=== PATIENT | male | born 1950 | race Caucasian/White ===

== ENCOUNTER → 2017-03-06 | Outpatient (CLI) | payer OTHER, MEDICARE ==
--- NOTE | 2017-03-06 15:16 | RADIOLOGY REPORT (SQ) ---
EXAM DESCRIPTION: KUB COMPLETED DATE/TIME: 03/06/2017 3:04 pm REASON FOR STUDY: [facility] COMPL OF INTRAPERITONEAL DIALYSIS CATHETER, SEQUELA T85.691S [facility] COMPL OF I NTRAPERITONEAL DIALYSIS CATHETER, SE COMPARISON: None. NUMBER OF VIEWS: One view. TECHNIQUE: Supine radiographic image of the abdomen acquired. LIMITATIONS: None. FINDINGS: BOWEL GAS PATTERN: Normal bowel gas pattern. No dilated loops. CALCIFICATIONS: No suspicious calcifications. SOFT TISSUES: No gross mass or suggestion of organomegaly. HARDWARE: Peritoneal dialysis catheter with the distal end in the pelvic region. BONES: No acute fracture. No worrisome bone lesions. OTHER: No other significant finding. IMPRESSION: NO RADIOGRAPHIC EVIDENCE FOR ACUTE ABDOMINAL DISEASE. PERITONEAL DIALYSIS CATHETER PRES ENT. TECHNICAL DOCUMENTATION: JOB ID: [id number] [employer]- All Rights Reserved
== END ==
LOC: OD 14:39
PROVIDERS: ATTEND Internal Medicine Nephrology
DX: T85.691S Other mechanical complication of intraperitoneal dialysis catheter, sequela (principal)
CPT/HCPCS: 74000

== ENCOUNTER 2017-05-07 05:21 | Day surgery (SDC) | payer OTHER, MEDICARE ==
[2017-04-30 09:37] LABS: HEMATOCRIT 40.7 % (37.9-51.0); HEMOGLOBIN 13.9 g/dL (13.5-17.0); MEAN CORPUSCULAR HGB CONC 34.3 g/dL (32.0-36.0); MEAN CORPUSCULAR VOLUME 88 fl (80-97); PLATELET COUNT 247 10^3/uL (150-450); RED BLOOD COUNT 4.65 10^6/uL (4.35-5.55); WHITE BLOOD COUNT 8.1 10^3/uL (4.0-10.5)
[2017-04-30 10:00] LABS: ANION GAP 13 (5-19); BLOOD UREA NITROGEN 35 mg/dL (7-20); CALCIUM 10.3 mg/dL (8.4-10.2); CARBON DIOXIDE 25 mmol/L (22-30); CHLORIDE 104 mmol/L (98-107); GLUCOSE 136 mg/dL (75-110); SODIUM 141.8 mmol/L (137-145)
--- NOTE | 2017-04-30 11:59 | EKG REPORT ---
SEVERITY:- OTHERWISE NORMAL ECG - SINUS RHYTHM POSSIBLE LVH : Confirmed by: Dakota Stevens 30-Apr-2017 11:57:45
[~2017-05-07 05:21] MED LIST: CEFAZOLIN 1 GM/D5W RTU 1 GM/50 ML RTUPB IV PRN; LIDOCAINE 0.5% INJ-PF (5 MG/ML) 50 ML SDV SUBCUT PRN; NORMAL SALINE 1000 ML (RENAL PATIENTS) IV PRN
[2017-05-07] MEDS ORDERED: BACITRACIN INJ 50,000 UNIT VIAL ONE (06:34)
[2017-05-07] MEDS ORDERED: LIDOCAINE 0.5% INJ-PF (5 MG/ML) 50 ML SDV ONE (06:34)
[2017-05-07] MEDS ORDERED: BUPIVACAINE HCL 0.25 % INJ/PF (2.5 MG/1 ML) 30 ML VIAL ONE (06:34)
[2017-05-07 06:47] LABS: POTASSIUM 4.1 mmol/L (3.6-5.0)
[2017-05-07] MEDS ORDERED: FENTANYL CITRATE INJ/PF 100 MCG/2 ML AMPUL ONE ×2 (06:58→10:21)
[2017-05-07] MEDS ORDERED: MIDAZOLAM 2 MG/2 ML INJ ONE (06:59)
[2017-05-07] MEDS ORDERED: ONDANSETRON HCL INJ/PF 4 MG/2 ML SDV ONE (06:59)
[2017-05-07] MEDS ORDERED: PROPOFOL INJ 200 MG/20 ML VIAL IV ONE (06:59)
[2017-05-07] MEDS ORDERED: HEPARIN SOD (PORCINE) 1,000 UNIT/ML 1 ML VIAL ONE ×2 (07:22→09:17)
[2017-05-07] MEDS ORDERED: DIPHENHYDRAMINE HCL 50 MG/ML VIAL IV PRN (08:27)
[2017-05-07] MEDS ORDERED: FENTANYL CITRATE INJ/PF 100 MCG/2 ML AMPUL IV PRN ×3 (08:27)
[2017-05-07] MEDS ORDERED: MEPERIDINE HCL/PF INJ 25 MG/1 ML DISP.SYRIN IV PRN (08:27)
[2017-05-07] MEDS ORDERED: MORPHINE SULFATE 10 MG/ML INJ IV PRN (08:27)
[2017-05-07] MEDS ORDERED: PROMETHAZINE HCL INJ 25 MG/1 ML VIAL IV PRN (08:27)
[2017-05-07] MEDS ORDERED: SUCCINYLCHOLINE CHLORIDE INJ 200 MG/10 ML VIAL ONE (09:43)
--- NOTE | 2017-05-07 10:04 | PDOC DISCHARGE SUMMARY ---
Discharge Summary (SDC) - Discharge Final Diagnosis: #1 end-stage renal disease on hemodialysis. 2. Malfunctioning peritoneal dialysis catheter. 3. Diabetes mellitus type 2. 4. Hypertension. Date of Surgery: 05/07/17 Discharge Date: 05/07/17 Condition: Fair Treatment or Instructions: My discharge order Discharge home [after recovery per ASU criteria]. Diet , [renal], diabetic, as tolerated, when fully awake advance as tolerated. Activities within moderation encouraged. Follow up in my office by appointment in about [1 week]. Call for appointment. Leave wounds [covered], [keep clean and dry, until office visit in 1 week]. Hold of on school/work [until evaluation in office]. Meds per med rec. Percocet. May shower [in 48 hrs], [try to keep operated area as dry as possible]. Prescriptions: Oxycodone HCl/Acetaminophen [Percocet 5-325 mg Tablet] 1 tab PO ASDIR PRN #15 tab PRN Reason: Referrals: MAYANK MAURO MD [Primary Care Provider] - Discharge Diet: Other (Comments) - Renal, diabetic. Respiratory Treatments at Home: Deep Breathing/Coughing Discharge Activity: Activity As Tolerated Report the Following to Your Physician Immediately: Shortness of Breath, Unusual Bleeding
--- NOTE | 2017-05-07 10:12 | Operative Report ---
Operative Report DATE OF SURGERY: 05/07/17 PREOPERATIVE DIAGNOSIS: #1 end-stage renal disease on hemodialysis. 2. Malfunctioning peritoneal dialysis catheter. 3. Diabetes mellitus type 2. 4. Hypertension. POSTOPERATIVE DIAGNOSIS: #1 end-stage renal disease on hemodialysis. Post repositioning of peritoneal dialysis catheter. 2. Malfunctioning peritoneal dialysis catheter. 3. Diabetes mellitus type 2. 4. Hypertension. OPERATION: Laparoscopic exploration and evaluation of peritoneal dialysis catheter. 2. Suture repositioning of pertinent dialysis catheter. SURGEON: HEATHER LI SPORTS DOCTOR: None ANESTHESIA: GA TISSUE REMOVED OR ALTERED: Not applicable. COMPLICATIONS: None. ESTIMATED BLOOD LOSS: 5 mL. INTRAOPERATIVE FINDINGS: Of a perfectly sided peritoneal dialysis catheter on inspection. The catheter was resected slightly of the pelvis. The hope is that this will reduce pain on installation although it will make drainage somewhat more challenging. 1 L of heparinized solution was easily instilled into the peritoneal cavity. Unable to 50 mils came out. A second liter was now instilled and 750 easily removed. This is after repositioning and suturing of catheter. This suggests that function may be possible with higher volumes in this patient. This will be communicated to the dialysis nurses. The patient was also given copies of the intraoperative photographs so that communication is closed loop. PROCEDURE: After obtaining informed consent and going over the procedure with [the patient and his family], he was taken to the operating room, [he was] anesthetized and intubated. The abdomen was prepped and draped in the usual sterile fashion. After the universal timeout, in which it was verified that the patient received IV antibiotic, the procedure commenced. The abdomen was entered in an open fashion slightly lateral to the prior epigastric incision. Dissection proceeded through the subcutaneous tissues, fascia. The rectus muscle was gently allowing access to the posterior fascia peritoneum. These were opened between hemostats and a 5 mm cannula inserted. A 5 mm laparoscopic camera was now inserted and used to evaluate the abdomen. With the patient in Trendelenburg of very few of the catheter perfectly positioned in the pelvis was noted. A second 5 mm cannula was now inserted in the right midabdomen through a prior scar. Also noted is the umbilical hernia repair which is just perfect in appearance no adhesions. introduction of a grasper. The grasper was used to t ke the coil of the peritoneal dialysis catheter and to manipulate it is slightly of the pelvis and to right. It was firmly affixed in this position by inserting a 3-0 PDS suture using an Endo passer. This was passed around the catheter and tied. The suture was introduced with small 5 mm incision. The suture was now tied sufficiently so as not to compromise the lumen of the catheter. Prior to doing so the catheter was irrigated and also a .035 Glidewire passed through to ensure that there was no substantial obstruction within the catheter. Once this was done the external portion of the catheter was affixed to a Leur lock adapter and connected to a sterile IV tubing. This allowed introduction of 1 L of heparinized saline into the peritoneal cavity via the catheter. This occurred with brisk and free flow of fluid into the peritoneal cavity. Once the entire liter had been infused, the bag was now placed beneath the level of the patient and very satisfactory outflow was observed. About 300 mils of fluid easily came out afterwards it was sluggish. A second liter of heparinized saline saline was introduced this time the effluent was switched and very satisfying. Easily 750 mils were withdrawn. It is to be noted that with the initially perfect positioning of the calf reinserting a new catheter seems redundant and success is most likely to attend an entirely different positioning of the catheter. Hence the procedure. With this in place, the camera and the catheter were removed and abdomen desufflated. The subcutaneous tissue in each incision was closed with interrupted 3-0 PDS. The skin in each incision was closed using interrupted and continuous sutures of 4-0 Monocryl. The catheter was flushed with 10 mL of heparinized solution and capped. Benzoin was applied and Steri-Strips used to reinforce each of the wounds. . Dry gauze and tape applied and the procedure concluded.
[2017-05-07] MEDS ORDERED: OXYCODONE-ACETAMINOPHEN 5-325 MG TABLET ONE (11:07)
[2017-05-07] MEDS ORDERED: OXYCODONE-ACETAMINOPHEN 5-325 MG TABLET PO ONE (11:30)
[2017-05-07 13:36] VITALS: BP 196/93
== END 2017-05-07 11:55 | disposition home or self-care (01) ==
LOC: OROUT 05:21
PROVIDERS: ATTEND Surgery
PROC: 0WHG43Z Insertion of Infusion Device into Peritoneal Cavity, Percutaneous Endoscopic Approach (ICD-10-PCS; principal; 2017-05-07 07:30)
DX: T82.858A Stenosis of other vascular prosthetic devices, implants and grafts, initial encounter (principal); Y83.2 Surgical operation with anastomosis, bypass or graft as the cause of abnormal reaction of the patient, or of later complication, without mention of misadventure at the time of the procedure; I12.0 Hypertensive chronic kidney disease with stage 5 chronic kidney disease or end stage renal disease; N18.6 End stage renal disease; Z99.2 Dependence on renal dialysis; D63.1 Anemia in chronic kidney disease; E11.22 Type 2 diabetes mellitus with diabetic chronic kidney disease; Z87.891 Personal history of nicotine dependence; Z79.899 Other long term (current) drug therapy; Z79.4 Long term (current) use of insulin
CPT/HCPCS: 93005; 36415 ×2; 82947; 84132; 85027; 80048; 93010; 49324; C1769; J2250; J3490 ×2; J0690; J3010; J1644; J0330; J2405; J2704; J1642; 790

== ENCOUNTER 2017-10-13 12:16 | Day surgery (SDC) | payer OTHER, MEDICARE ==
[~2017-10-13 12:16] MED LIST changes: -LIDOCAINE 0.5% INJ-PF (5 MG/ML) 50 ML SDV SUBCUT PRN; -NORMAL SALINE 1000 ML (RENAL PATIENTS) IV PRN
[2017-10-13] MEDS ORDERED: LIDOCAINE 0.5% INJ-PF (5 MG/ML) 50 ML SDV ONE (12:50)
[2017-10-13] MEDS ORDERED: BUPIVACAINE HCL 0.25 % INJ/PF (2.5 MG/1 ML) 30 ML VIAL ONE (12:50)
[2017-10-13 12:54] LABS: HEMATOCRIT 42.7 % (37.9-51.0); HEMOGLOBIN 14.6 g/dL (13.5-17.0); MEAN CORPUSCULAR HEMOGLOBIN 30.6 pg (27.0-33.4); MEAN CORPUSCULAR HGB CONC 34.1 g/dL (32.0-36.0); MEAN CORPUSCULAR VOLUME 90 fl (80-97); PLATELET COUNT 300 10^3/uL (150-450); RED BLOOD COUNT 4.76 10^6/uL (4.35-5.55); RED CELL DISTRIBUTION WIDTH 13.5 % (11.5-14.0); WHITE BLOOD COUNT 9.9 10^3/uL (4.0-10.5)
[2017-10-13 13:22] LABS: ANION GAP 17 (5-19); BLOOD UREA NITROGEN 38 mg/dL (7-20); CALCIUM 9.7 mg/dL (8.4-10.2); CARBON DIOXIDE 25 mmol/L (22-30); CHLORIDE 105 mmol/L (98-107); GLUCOSE 94 mg/dL (75-110); POTASSIUM 4.7 mmol/L (3.6-5.0); SODIUM 146.5 mmol/L (137-145)
[2017-10-13] MEDS ORDERED: FENTANYL CITRATE INJ/PF 100 MCG/2 ML AMPUL ONE (14:15)
[2017-10-13] MEDS ORDERED: PROPOFOL INJ 200 MG/20 ML VIAL IV ONE (14:15)
[2017-10-13] MEDS ORDERED: MIDAZOLAM 2 MG/2 ML INJ ONE (14:15)
[2017-10-13] MEDS ORDERED: LIDOCAINE 2% INJ-PF (20 MG/ML) 10 ML AMPUL ONE (14:21)
[2017-10-13] MEDS ORDERED: FENTANYL CITRATE INJ/PF 100 MCG/2 ML AMPUL IV PRN ×3 (14:46)
[2017-10-13] MEDS ORDERED: PROMETHAZINE HCL INJ 25 MG/1 ML VIAL IV PRN ×2 (14:46)
[2017-10-13] MEDS ORDERED: MORPHINE SULFATE 10 MG/ML INJ IV PRN (14:46)
[2017-10-13] MEDS ORDERED: MEPERIDINE HCL/PF INJ 25 MG/1 ML DISP.SYRIN IV PRN (14:46)
[2017-10-13] MEDS ORDERED: OXYCODONE-ACETAMINOPHEN 5-325 MG TABLET PO PRN ×2 (14:46)
[2017-10-13] MEDS ORDERED: DIPHENHYDRAMINE HCL 50 MG/ML VIAL IV PRN (14:46)
--- NOTE | 2017-10-13 15:11 | Discharge Summary ---
Discharge Summary (SDC) - Discharge Final Diagnosis: #[address] 2. End-stage renal disease on dialysis. Date of Surgery: 10/13/17 Discharge Date: 10/13/17 Condition: Good Treatment or Instructions: Discharge home [after recovery per ASU criteria]. Diet , [renal],as tolerated, when fully awake advance as tolerated. Activities within moderation encouraged. Follow up in my office by appointment in about [1 week]. Call for appointment. Leave wounds [covered], [keep clean and dry, until office visit in 1 week]. Hold of on school/work [until evaluation in office]. Meds per med rec. Percocet. May shower [in 48 hrs], [try to keep operated area as dry as possible]. Prescriptions: Oxycodone HCl/Acetaminophen [Percocet 5-325 mg Tablet] 1 tab PO ASDIR PRN #15 tab PRN Reason: Referrals: SEVERIANO JEFF MD [Primary Care Provider] - Discharge Diet: Other (Comments) - Renal. Respiratory Treatments at Home: Deep Breathing/Coughing Discharge Activity: Activity As Tolerated Report the Following to Your Physician Immediately: Shortness of Breath, Unusual Bleeding
--- NOTE | 2017-10-13 15:15 | Operative Report ---
Operative Report DATE OF SURGERY: 10/13/17 PREOPERATIVE DIAGNOSIS: #[address]. 2. End- stage renal disease on dialysis. POSTOPERATIVE DIAGNOSIS: #[address] 2. End- stage renal disease on dialysis. OPERATION: Removal of peritoneal dialysis catheter. SURGEON: HEATHER LI SUPERVISORY TRAINING SPECIALIST: None. ANESTHESIA: LMAC TISSUE REMOVED OR ALTERED: Peritoneal dialysis catheter. COMPLICATIONS: None. ESTIMATED BLOOD LOSS: 5 mL. INTRAOPERATIVE FINDINGS: Of a well founded, double cuffed peritoneal dialysis catheter. Removed in entirety and discarded. PROCEDURE: After obtaining informed consent and going over the procedure with [the patient , he was taken to the operating room, appropriate anesthesia is. The abdomen was prepped and draped in the usual sterile fashion. After the universal timeout , in which it was verified that the patient received IV antibiotic, the procedure commenced. The topographical location for the peritoneal dialysis catheter was sketched by applying it to the anterior abdominal wall. Local anesthesia was infiltrated at the exit site, subcutaneous tissue tissue around the catheter and also in the scar of the previous insertion. The scar of the previous insertion was now incised. Hemostat dissection was used to dissect down to the external cough. Surrounding tissues were incised using cautery. The catheter was divided and the external portion removed. Dissection now proceeded down to the internal cough. The catheter on the anterior side of the cuff was visualized and grasped with a hemostat. The internal portion of the catheter was no entirely removed by traction. The remaining adhesions of the cuff were now taken down and the catheter removed in entirety and discarded. The wounds were checked for hemostasis. Wounds were closed using interrupted 3-0 PDS. [Dry gauze and tape applied and the procedure concluded.
[2017-10-13 17:18] VITALS: BP 161/80
== END 2017-10-13 16:50 | disposition home or self-care (01) ==
LOC: OROUT 12:16
PROVIDERS: ATTEND Surgery
PROC: 0WPG33Z Removal of Infusion Device from Peritoneal Cavity, Percutaneous Approach (ICD-10-PCS; principal; 2017-10-13 14:30)
DX: Z49.01 Encounter for fitting and adjustment of extracorporeal dialysis catheter (principal); N18.6 End stage renal disease; I12.0 Hypertensive chronic kidney disease with stage 5 chronic kidney disease or end stage renal disease; E11.22 Type 2 diabetes mellitus with diabetic chronic kidney disease; Z87.891 Personal history of nicotine dependence; Z99.2 Dependence on renal dialysis; Z79.4 Long term (current) use of insulin
CPT/HCPCS: 36415; 85027; 80048; 49422; J2250; J0690; J3010; J3490 ×2; J2704; 840

== ENCOUNTER 2018-12-03 10:41 | Emergency (ER) | payer OTHER, MEDICARE ==
--- NOTE | 2018-12-03 12:11 | ER Document Report ---
ED General - General Chief Complaint: Irregular Pulse Stated Complaint: WEAKNESS Time Seen by Provider: 12/03/18 11:42 Primary Care Provider: GAVIOTA GARCIA [Primary Care Provider] - Follow up as needed Notes: 68-year-old male with hypertension, insulin-dependent diabetes mellitus, end- stage renal disease on dialysis Thursday presents to the emergency department brought in by ambulance for concern for irregular pulse and lethargy. Patient states he was at dialysis and the dialysis nurse noticed that he became diaphoretic and that he had fallen asleep a couple times during his treatment, she put his apple watch on his wrist and deemed that he had an irregular heartbeat so transferred him to our emergency department. Patient is awake and alert in no distress, denies any diaphoresis, denies any current nausea, denies any acute shortness of breath or dyspnea on exertion, denies chest pain. TRAVEL OUTSIDE OF THE [place] IN LAST 30 DAYS: No - Related Data Allergies/Adverse Reactions: Tcxpqfl-Puc-Aeq Reductase Inhibitor Adverse Reaction (Verified 05/07/17 06:16) Past Medical History - Social History Smoking Status: Never Smoker Family History: Reviewed & Not Pertinent Patient has suicidal ideation: No Patient has homicidal ideation: No - Past Medical History Cardiac Medical History: Reports: Hx Hypercholesterolemia, Hx Hypertension Denies: Hx Coronary Artery Disease, Hx Heart Attack Pulmonary Medical History: Reports: Hx Bronchitis, Hx Pneumonia Denies: Hx Asthma, Hx COPD Neurological Medical History: Denies: Hx Cerebrovascular Accident, Hx Seizures Endocrine Medical History: Reports: Hx Diabetes Mellitus Type 2 Musculoskeletal Medical History: Reports Hx Arthritis - MARY. HANDS Past Surgical History: Reports: Hx Orthopedic Surgery - left knee replacement, back x2, knee x2 - Immunizations Hx Diphtheria, Pertussis, Tetanus Vaccination: Yes Review of Systems - Review of Systems Constitutional: See HPI EENT: No symptoms reported Cardiovascular: See HPI Respiratory: See HPI Gastrointestinal: See HPI Genitourinary: No symptoms reported Male Genitourinary: No symptoms reported Musculoskeletal: No symptoms reported Skin: No symptoms reported Hematologic/Lymphatic: No symptoms reported Neurological/Psychological: See HPI Physical Exam - Vital signs Vitals: Pulse Ox 98 12/03/18 10:53 - Notes Notes: PHYSICAL EXAMINATION: Reviewed vital signs and charting by RN GENERAL: Alert, interacts well. No acute distress. HEAD: Normocephalic, atraumatic. EYES: Pupils equal and round. Extraocular movements intact. ENT: Oral mucosa moist, tongue midline. NECK: Full range of motion. Trachea midline. LUNGS: Clear to auscultation bilaterally, no wheezes, rales, or rhonchi. No respiratory distress. HEART: Regular rate and rhythm. No murmur ABDOMEN: soft, non-tender. No distention. Bowel sounds present EXTREMITIES: Moves all 4 extremities spontaneously. No edema, No cyanosis. PSYCH: Normal affect, normal mood. SKIN: Warm, dry, normal turgor. No rashes or lesions noted. Course - Re-evaluation Re-evalutation: 12/03/18 12:10 Overall well-appearing, plan to get some basic blood work, EKG, troponin, and will reassess. 12/03/18 13:50 Multiple attempts were made to obtain blood. I asked the charge nurse that she was unable to obtain a blood sample under ultrasound-guided procedure. Patient says he feels completely fine at his baseline. An EKG was obtained which did not show any evidence of a STEMI or any anterior lead ST depressions concerning for ischemia. Rate was 63 and regular, normal axis, QTC 455. I explained to patient that because he does have risk factors I was concerned and wanted to get a troponin but we are unsuccessful at getting blood and patient states he wishes to leave. At this time I explained patient's the risks involved and I do feel that it is appropriate for him to leave considering the back story and why he was brought over here from dialysis to begin with. At this time patient is stable for discharge and understands the risks and strict return precautions have been given. - Vital Signs Vital signs: Temp Pulse Resp BP Pulse Ox 97.6 F 15 161/135 H 98 12/03/18 11:01 12/03/18 11:01 12/03/18 11:01 12/03/18 11:01 Discharge - Discharge Clinical Impression: Diaphoresis Condition: Good Disposition: HOME, SELF-CARE Additional Instructions: You were seen in the emergency department this morning for concern for fatigue and for sweating. I apologize that we were not able to get blood work on you and I do have a mild concern and was hoping to get some blood work. Your EKG was reassuring and did not show any evidence of an acute heart attack. It is critically important to return to the emergency department if you do develop chest pain, nausea, sweats with the symptoms, or you have any concerning symptoms. You do have risk factors. I apologize for the delay and again for the inability to get the blood work that we were hoping to get. Please do not hesitate to return to the emergency department for any reason that concerns you. Referrals: [facility] [Primary Care Provider] - Follow up as needed
--- NOTE | 2018-12-03 13:50 | EKG REPORT ---
SEVERITY:- ABNORMAL ECG - SINUS RHYTHM MULTIPLE ATRIAL PREMATURE COMPLEXES PROBABLE LEFT ATRIAL ABNORMALITY INCOMPLETE RIGHT BUNDLE BRANCH BLOCK LEFT VENTRICULAR HYPERTROPHY : Confirmed by: Porter Mulligan MD 03-Dec-2018 13:50:01
[2018-12-03 14:07] VITALS: BP 189/88
== END 2018-12-03 14:16 | disposition home or self-care (01) ==
LOC: ER 10:41
DX: R61 Generalized hyperhidrosis (principal); R53.1 Weakness; E78.00 Pure hypercholesterolemia, unspecified; E11.22 Type 2 diabetes mellitus with diabetic chronic kidney disease; I12.0 Hypertensive chronic kidney disease with stage 5 chronic kidney disease or end stage renal disease; N18.6 End stage renal disease; Z99.2 Dependence on renal dialysis; Z79.4 Long term (current) use of insulin
CPT/HCPCS: 93005; 93010; 99285

== ENCOUNTER → 2019-06-07 | Outpatient (CLI) | payer OTHER ==
--- NOTE | 2019-06-07 14:50 | RADIOLOGY REPORT (SQ) ---
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 TECHNIQUE: Dynamic and static huertas-scale images acquired of the thyroid gland. Selected additional c olor/power Doppler images recorded. All images stored to PACS. LIMITATIONS: None. FINDINGS: RIGHT LOBE: 6.2 x 2.4 x 2.9 cm. Generally heterogeneous echo pattern. - Dominant solid well-circumscribed wider than tall hypoechoic mass in the inferior-midpole measures 3.5 x 2.3 x 2.7 cm. Coarse internal macro calcifications. - smaller adjacent midpole spongiform ovoid ill circumscribed nodule measures up to 1.6 cm. LEFT LOBE: 5.4 x 1.8 x 1.9 cm. Generally heterogeneous echo pattern. - small cystic nodules without suspicious features. ISTHMUS: Normal size. Homogeneous echotexture. No cystic or solid masses. OTHER: No other significant finding. IMPRESSION: 1. Dominant right lobe thyroid lesion. This is a solid mass and is considered TiRads 4, moderately s uspicious. Patient reports history of previous right thyroid lobe biopsy and correlation should be m tahir with previous results. Otherwise, FNA of this lesion would be appropriate. TECHNICAL DOCUMENTATION: JOB ID: [id number] 2010 [employer]- All Rights Reserved Reading location - IP/workstation name: [email or web address]
== END ==
LOC: RAD 13:36
PROVIDERS: ATTEND Physician Assistant
DX: E04.9 Nontoxic goiter, unspecified (principal)
CPT/HCPCS: 76536

== ENCOUNTER 2019-06-10 12:03 | Inpatient (IN) | payer OTHER, MEDICARE ==
--- NOTE | 2019-06-10 12:38 | ER Document Report ---
ED Medical Screen (RME) - General Chief Complaint: Breathing Difficulty Stated Complaint: DIFFICULTY BREATHING Time Seen by Provider: 06/10/19 12:35 Primary Care Provider: BRYANNA GARCIA PA [Primary Care Provider] - Follow up as needed Mode of Arrival: Wheelchair Information source: Patient Notes: 68-year-old male presents to ED for shortness of breath O2 sat 84-89 until he was placed on 2 L of oxygen nasal cannula, now is going up to 97%. He is in the emergency room at this time for shortness of breath difficulty breathing. He does have a history of COPD. States he did former smoker but has not smoked since he was 34 years old. And is 68 now. He is alert and oriented and we will be moving him to a room. I have greeted and performed a rapid initial assessment of this patient. A comprehensive ED assessment and evaluation of the patient, analysis of test results and completion of medical decision making process will be conducted by an additional ED providers. TRAVEL OUTSIDE OF THE [place] IN LAST 30 DAYS: No - Related Data Allergies/Adverse Reactions: Bqysstx-Edq-Kzn Reductase Inhibitor Adverse Reaction (Verified 05/07/17 06:16) Past Medical History - Past Medical History Cardiac Medical History: Reports: Hx Hypercholesterolemia, Hx Hypertension Pulmonary Medical History: Reports: Hx Bronchitis, Hx Pneumonia Endocrine Medical History: Reports: Hx Diabetes Mellitus Type 2 Musculoskeltal Medical History: Reports Hx Arthritis - MARY. HANDS, Reports Hx Musculoskeletal Deformity, Reports Hx Musculoskeletal Trauma Past Surgical History: Reports: Hx Orthopedic Surgery - left knee replacement, back x2, knee x2 - Immunizations Hx Diphtheria, Pertussis, Tetanus Vaccination: Yes Physical Exam - Vital signs Vitals: Temp Pulse Resp BP Pulse Ox 98.5 F 78 20 134/83 H 92 06/10/19 12:28 06/10/19 12:28 06/10/19 12:28 06/10/19 12:28 06/10/19 12:28 Course - Vital Signs Vital signs: Temp Pulse Resp BP Pulse Ox 98.5 F 78 20 134/83 H 92 06/10/19 12:28 06/10/19 12:28 06/10/19 12:28 06/10/19 12:28 06/10/19 12:28 Doctor's Discharge - Discharge Referrals: BRYANNA GARCIA PA [Primary Care Provider] - Follow up as needed
[2019-06-10] MEDS ORDERED: IPRATROPIUM/ALBUTEROL 0.5-2.5 MG/3 ML AMPUL NEB ONE ×2 (12:46→12:47)
[2019-06-10] MEDS ORDERED: METHYLPREDNISOLONE INJ 125 MG/2 ML SDV IV ONE (12:47)
--- NOTE | 2019-06-10 12:49 | ER Document Report ---
Doctor's Note Notes: 06/10/19 12:48 Patient also has a history of kidney failure and does have a dialysis fistula on the left arm
--- NOTE | 2019-06-10 13:21 | RADIOLOGY REPORT (SQ) ---
EXAM DESCRIPTION: CHEST SINGLE VIEW COMPLETED DATE/TIME: 06/10/2019 12:03 pm REASON FOR STUDY: short Of breath COMPARISON: 04/02/2012 EXAM PARAMETERS: NUMBER OF VIEWS: One view. TECHNIQUE: Single frontal radiographic view of the chest acquired. RADIATION DOSE: NA LIMITATIONS: None. FINDINGS: LUNGS AND PLEURA: Patchy bibasilar opacities may represent small effusions with atelectasi s and/or consolidation. No pneumothorax. MEDIASTINUM AND HILAR STRUCTURES: No masses. Contour normal. HEART AND VASCULAR STRUCTURES: Heart normal in size. Normal vasculature. BONES: No acute findings. HARDWARE: None in the chest. OTHER: No other significant finding. IMPRESSION: Patchy bibasilar opacities may represent atelectasis with small effusions or consolidati on. TECHNICAL DOCUMENTATION: JOB ID: [id number] 2010 [employer]- All Rights Reserved Reading location - IP/workstation name: [email or web address]
[2019-06-10 13:57] LABS: ABSOLUTE BASOPHILS # (AUTO) 0.1 10^3/uL (0.0-0.2); ABSOLUTE LYMPHOCYTES (AUTO) 0.5 10^3/uL (0.5-4.7); ABSOLUTE MONOCYTES (AUTO) 0.9 10^3/uL (0.1-1.4); ABSOLUTE NEUT (AUTO) 4.1 10^3/uL (1.7-8.2); BASOPHILS % (AUTO) 1.3 % (0-2); EOSINOPHILS % (AUTO) 0.4 % (0-6); HEMATOCRIT 25.1 % (37.9-51.0); HEMOGLOBIN 8.9 g/dL (13.5-17.0); LYMPHOCYTES % (AUTO) 8.5 % (13-45); MEAN CORPUSCULAR HEMOGLOBIN 32.3 pg (27.0-33.4); MEAN CORPUSCULAR HGB CONC 35.4 g/dL (32.0-36.0); MEAN CORPUSCULAR VOLUME 91 fl (80-97); PLATELET COUNT 205 10^3/uL (150-450); RED BLOOD COUNT 2.76 10^6/uL (4.35-5.55); RED CELL DISTRIBUTION WIDTH 14.2 % (11.5-14.0); SEGMENTED NEUTROPHILS % (AUTO) 73.8 % (42-78); TOTAL CELLS COUNTED % (AUTO) 100 %; WHITE BLOOD COUNT 5.5 10^3/uL (4.0-10.5)
[2019-06-10 14:17] LABS: ALKALINE PHOSPHATASE 49 U/L (38-126); ANION GAP 11 (5-19); ASPARTATE AMINO TRANSFERASE 26 U/L (17-59); BILIRUBIN,DIRECT 0.4 mg/dL (0.0-0.4); BILIRUBIN,TOTAL 1.2 mg/dL (0.2-1.3); BLOOD UREA NITROGEN 19 mg/dL (7-20); CALCIUM 9.5 mg/dL (8.4-10.2); CARBON DIOXIDE 29 mmol/L (22-30); CHLORIDE 101 mmol/L (98-107); GLUCOSE 144 mg/dL (75-110); POTASSIUM 4.1 mmol/L (3.6-5.0); TOTAL PROTEIN 7.4 g/dL (6.3-8.2)
--- NOTE | 2019-06-10 16:20 | RADIOLOGY REPORT (SQ) ---
EXAM DESCRIPTION: CT CHEST WITHOUT COMPLETED DATE/TIME: 06/10/2019 3:37 pm REASON FOR STUDY: shortness of breath/consolidation COMPARISON: Radiographs from yesterday. TECHNIQUE: CT scan performed of the chest without intravenous contrast. Images reviewed with lung, soft tissue and bone windows. Reconstructed coronal and sagittal MPR images reviewed. All images st ored on PACS. All CT scanners at this facility use dose modulation, iterative reconstruction, and/or weight based d osing when appropriate to reduce radiation dose to as low as reasonably achievable (ALARA). [facility]: Dose Right [facility]: CareDose [facility]: Dose Right [facility]: Teradose 4D [facility]: Smart Myows RADIATION DOSE: CT Rad equipment meets quality standard of care and radiation dose reduction techniq ues were employed. CTDIvol: 18.9 mGy. DLP: 665 mGy-cm. mGy. LIMITATIONS: No technical limitations. FINDINGS: LUNGS AND PLEURA: Mild motion artifact and areas of subsegmental atelectasis. Small bilat eral effusions. HILAR AND MEDIASTINAL STRUCTURES: Mild mediastinal adenopathy, nodes measuring up to 1.4 cm short axi s. HEART AND VASCULAR STRUCTURES: Mild cardiomegaly. Heavy coronary calcification. No pericardial effu rosa or aortic aneurysm. UPPER ABDOMEN: No significant findings. Limited exam. THYROID AND OTHER SOFT TISSUES: Suspect thyromegaly. No chest wall mass or axillary adenopathy. BONES: No significant finding. HARDWARE: None in the chest. OTHER: No other significant findings. IMPRESSION: 1. Findings likely related to CHF. Cardiomegaly and small effusions. Marked Coronary calcification also noted. 2. Other findings as above. TECHNICAL DOCUMENTATION: JOB ID: [id number] Quality ID # [id number]: Final reports with documentation of one or more dose reduction techniques (e.g., Au tomated exposure control, adjustment of the mA and/or kV according to patient size, use of iterative reconstruction technique) 2010 [employer]- All Rights Reserved Reading location - IP/workstation name: [email or web address]
--- NOTE | 2019-06-10 16:36 | ER Document Report ---
Entered by LYNNE THOMAS SCRIBE 06/10/19 1521 Acting as scribe for:EVARISTO CATALAN MD ED General - General Chief Complaint: Breathing Difficulty Stated Complaint: DIFFICULTY BREATHING Time Seen by Provider: 06/10/19 12:35 Primary Care Provider: BRYANNA GARCIA PA [NO LOCAL MD] - Follow up as needed Mode of Arrival: Wheelchair Information source: Patient Notes: This 68-year-old male patient presents to the emergency department today with complaints of shortness of breath for the last 3 weeks. Patient states that he is a M/W/F hemodialysis patient and he has "never missed a day of dialysis in his life". Patient states he went today prior to arrival as well and he had a full treatment done. Patient states he has had associated fevers, chills, sweats, and wheezing for the last few weeks but has not been seen for it yet. Patient denies a history of CHF or usage of home oxygen. Patient denies any sore throat, chest pain, or recent weight gain. TRAVEL OUTSIDE OF THE [place] IN LAST 30 DAYS: No - Related Data Allergies/Adverse Reactions: Wlelryp-Adm-Aut Reductase Inhibitor Adverse Reaction (Verified 05/07/17 06:16) Past Medical History - General Information source: Patient - Social History Smoking Status: Former Smoker - quit at age 32 Cigarette use (# per day): No Frequency of alcohol use: None Drug Abuse: None Lives with: Family Family History: Reviewed & Not Pertinent Patient has suicidal ideation: No Patient has homicidal ideation: No - Past Medical History Cardiac Medical History: Reports: Hx Hypercholesterolemia, Hx Hypertension Pulmonary Medical History: Reports: Hx Bronchitis, Hx Pneumonia Endocrine Medical History: Reports: Hx Diabetes Mellitus Type 2 Musculoskeletal Medical History: Reports Hx Arthritis - MARY. HANDS, Reports Hx Musculoskeletal Deformity, Reports Hx Musculoskeletal Trauma Past Surgical History: Reports: Hx Orthopedic Surgery - left knee replacement, back x2, knee x2 - Immunizations Hx Diphtheria, Pertussis, Tetanus Vaccination: Yes Review of Systems - Review of Systems Constitutional: See HPI, Chills, Diaphoresis, Fever EENT: denies: Throat pain Cardiovascular: denies: Chest pain Respiratory: See HPI, Short of breath, Wheezing Gastrointestinal: No symptoms reported Genitourinary: No symptoms reported Male Genitourinary: No symptoms reported Musculoskeletal: No symptoms reported Skin: No symptoms reported Hematologic/Lymphatic: No symptoms reported Neurological/Psychological: No symptoms reported -: Yes All other systems reviewed and negative Physical Exam - Vital signs Vitals: Temp Pulse Resp BP Pulse Ox 98.5 F 78 20 134/83 H 92 06/10/19 12:28 06/10/19 12:28 06/10/19 12:28 06/10/19 12:28 06/10/19 12:28 - Notes Notes: Physical Exam: General: Alert, appears short of breath. HEENT: Normocephalic. Atraumatic. PERRL. Extraocular movements intact. Oropharynx clear. Neck: Supple. Non-tender. Respiratory: Performed after breathing treatment. No respiratory distress. Clear and equal breath sounds bilaterally. Cardiovascular: Regular rate and rhythm. Abdominal: Obese. Non-tender. No distension. Normal Bowel Sounds. Back: No gross abnormalities. Extremities: Moves all four extremities. Upper extremities: Fistula in LUE Lower extremities: 1+ pitting edema bilaterally. Neurological: Normal cognition. AAOx4. Normal speech. Psychological: Normal affect. Normal Mood. Skin: Warm. Dry. Normal color. Course - Vital Signs Vital signs: Temp Pulse Resp BP Pulse Ox 98.5 F 78 18 143/63 H 92 06/10/19 12:28 06/10/19 12:28 06/10/19 13:00 06/10/19 12:50 06/10/19 12:28 - Laboratory Result Diagrams: 06/10/19 13:45 06/10/19 13:45 Laboratory results interpreted by me: 06/10/19 06/10/19 13:45 13:45 RBC 2.76 L Hgb 8.9 L Hct 25.1 L RDW 14.2 H Lymph % (Auto) 8.5 L Polk % (Auto) 16.0 H Creatinine 4.70 H Est GFR ( Amer) 15 L Est GFR (MDRD) Non-Af 12 L Glucose 144 H Discharge - Discharge Clinical Impression: CHF (congestive heart failure), Chronic renal failure, New onset atrial flutter, End stage renal disease Condition: Fair Disposition: AGAINST MEDICAL ADVICE Referrals: BRYANNA GARCIA PA [NO LOCAL MD] - Follow up as needed I personally performed the services described in the documentation, reviewed and edited the documentation which was dictated to the scribe in my presence, and it accurately records my words and actions.
[2019-06-10 17:15] LABS: APPEARANCE,URINE CLEAR; BILIRUBIN,URINE NEGATIVE (NEGATIVE); COLOR,URINE YELLOW; GLUCOSE, URINE >=500 mg/dL (NEGATIVE); KETONES,URINE NEGATIVE (NEGATIVE); PROTEIN,URINE >=500 mg/dL (NEGATIVE); UROBILINOGEN,URINE NEGATIVE mg/dL (<2.0)
--- NOTE | 2019-06-10 18:06 | EKG REPORT ---
SEVERITY:- ABNORMAL ECG - A-FLUTTER W/ PREDOM 4:1 AV BLOCK, A-RATE 319 NONSPECIFIC T ABNORMALITIES, LATERAL LEADS BORDERLINE PROLONGED QT INTERVAL : Confirmed by: Porter Mulligan MD 10-Jun-2019 18:05:26
[2019-06-10] MEDS ORDERED: ACETAMINOPHEN 325 MG TABLET PO PRN (18:24)
[2019-06-10] MEDS ORDERED: ZOLPIDEM TARTRATE 5 MG TABLET PO PRN (18:24)
[2019-06-10] MEDS ORDERED: OXYCODONE-ACETAMINOPHEN 5-325 MG TABLET PO PRN (18:24)
[2019-06-10] MEDS ORDERED: ONDANSETRON 4 MG TAB.RAPDIS PO PRN (18:24)
[2019-06-10] MEDS ORDERED: IPRATROPIUM/ALBUTEROL 0.5-2.5 MG/3 ML AMPUL NEB PRN (18:24)
--- NOTE | 2019-06-10 18:44 | PDOC H&P ---
History of Present Illness Admission Date/PCP: 06/10/19 18:13 History of Present Illness: LEELEE THORNE is a 68 year old male Patient presents emergency room with complaint of difficulty breathing and shortness of breath. This has been going on for the last 3 weeks. He is a dialysis patient and his last dialysis was today. Patient states is normally pretty compliant. He was found to be in new onset atrial fibrillation in the emergency room. He has been in the hospital multiple times before and is. His EKG did not show evidence of atrial arrhythmias. The scan of the chest reveal cardiomegaly and small effusions. There was noted a suspected megaly although thyroid function test is noted to be normal. Patient was also found to have an elevated troponin at 0.162 and 0.164 however this is likely due to his dialysis and arrhythmia. He denies any chest pain. The troponin is flat but will continue to trend. The same level is within normal. EKG shows atrial flutter with predominant 4-1 AV block rate there is no evidence of clinical pneumonia this is likely due to atrial arrhythmia with tachycardia, as well as renal function. Past Medical History Cardiac Medical History: Reports: Hyperlipidema, Hypertension Pulmonary Medical History: Reports: Bronchitis, Pneumonia Endocrine Medical History: Reports: Diabetes Mellitus Type 2 Musculoskeltal Medical History: Reports: Arthritis - MARY. HANDS Hematology: Denies: Anemia Past Surgical History Past Surgical History: Reports: Orthopedic Surgery - left knee replacement, back x2, knee x2 Social History Information Source: Patient Lives with: Family Smoking Status: Former Smoker - quit at age 32 Frequency of Alcohol Use: None Hx Recreational Drug Use: No - Advance Directive Resuscitation Status: Full Code Family History Family History: Reviewed & Not Pertinent Parental Family History Reviewed: No Children Family History Reviewed: Yes Sibling(s) Family History Reviewed.: Yes Medication/Allergy Home Medications: Carvedilol [Coreg 12.5 mg Tablet] 1 tab PO BID 01/27/17 Clonidine HCl 1 tab PO BID 01/27/17 Furosemide [Lasix 20 mg Tablet] 1 tab PO DAILY 01/27/17 Insulin Glargine,Hum.rec.anlog [Lantus] 1 dose SQ HSP PRN 01/27/17 Nifedipine [Adalat cc] 1 tab PO BID 01/27/17 Oxycodone HCl/Acetaminophen [Percocet 5-325 mg Tablet] 1 tab PO ASDIR PRN #15 tab 05/07/17 Oxycodone HCl/Acetaminophen [Percocet 5-325 mg Tablet] 1 tab PO ASDIR PRN #15 tab 10/13/17 Allergies/Adverse Reactions: Fzlggbo-Fdr-Ajp Reductase Inhibitor Adverse Reaction (Verified 05/07/17 06:16) Review of Systems All systems: reviewed and no additional remarkable complaints except as stated Cardiovascular: PRESENT: edema, orthropnea, palpitations. ABSENT: chest pain Respiratory: ABSENT: cough, dyspnea, hemoptysis Physical Exam Vital Signs: Temp Pulse Resp BP Pulse Ox 98.5 F 78 21 H 143/73 H 94 06/10/19 12:28 06/10/19 12:28 06/10/19 16:03 06/10/19 16:03 06/10/19 16:03 Intake & Output 06/09/19 06/10/19 06/11/19 06:59 06:59 06:59 Weight 90.9 kg General appearance: PRESENT: no acute distress, well-developed, well-nourished Head exam: PRESENT: atraumatic, normocephalic Eye exam: PRESENT: conjunctiva pink, EOMI, PERRLA. ABSENT: scleral icterus Ear exam: PRESENT: normal external ear exam Mouth exam: PRESENT: moist, tongue midline Neck exam: ABSENT: carotid bruit, JVD, lymphadenopathy, thyromegaly Respiratory exam: PRESENT: clear to auscultation mary. ABSENT: rales, rhonchi, wheezes Cardiovascular exam: PRESENT: irregular rhythm, +S1, +S2. ABSENT: diastolic murmur, rubs, systolic murmur Pulses: PRESENT: normal dorsalis pedis pul Vascular exam: PRESENT: normal capillary refill GI/Abdominal exam: PRESENT: normal bowel sounds, soft. ABSENT: distended, guarding, mass, organolmegaly, rebound, tenderness Rectal exam: PRESENT: deferred Extremities exam: PRESENT: full ROM, +1 edema, other - LUE AV fistula with good bruit. ABSENT: calf tenderness, clubbing, pedal edema Neurological exam: PRESENT: alert, awake, oriented to person, oriented to place, oriented to time, oriented to situation, CN II-XII grossly intact. ABSENT: motor sensory deficit Psychiatric exam: PRESENT: appropriate affect, normal mood. ABSENT: homicidal ideation, suicidal ideation Skin exam: PRESENT: dry, intact, warm. ABSENT: cyanosis, rash Results Laboratory Results: 06/10/19 13:45 06/10/19 13:45 06/10/19 06/10/19 06/10/19 13:45 13:45 13:45 WBC 5.5 RBC 2.76 L Hgb 8.9 L Hct 25.1 L MCV 91 MCH 32.3 MCHC 35.4 RDW 14.2 H Plt Count 205 Seg Neutrophils % 73.8 Sodium 141.0 Potassium 4.1 Chloride 101 Carbon Dioxide 29 Anion Gap 11 BUN 19 Creatinine 4.70 H Est GFR ( Amer) 15 L Glucose 144 H Calcium 9.5 Magnesium 2.0 Total Bilirubin 1.2 AST 26 Alkaline Phosphatase 49 Total Protein 7.4 Albumin 4.0 TSH 0.38 L Urine Color Urine Appearance Urine pH Ur Specific [place] Urine Protein Urine Glucose (UA) Urine Ketones Urine Blood Urine RBC (Auto) 06/10/19 16:11 WBC RBC Hgb Hct MCV MCH MCHC RDW Plt Count Seg Neutrophils % Sodium Potassium Chloride Carbon Dioxide Anion Gap BUN Creatinine Est GFR ( Amer) Glucose Calcium Magnesium Total Bilirubin AST Alkaline Phosphatase Total Protein Albumin TSH Urine Color YELLOW Urine Appearance CLEAR Urine pH 8.0 Ur Specific [place] 1.010 Urine Protein >=500 H Urine Glucose (UA) >=500 H Urine Ketones NEGATIVE Urine Blood NEGATIVE Urine RBC (Auto) 0 06/10/19 06/10/19 13:45 16:11 Troponin I 0.164 0.162 Impressions: Chest X-Ray 06/10/19 12:46 IMPRESSION: Patchy bibasilar opacities may represent atelectasis with small effusions or consolidation. Chest CT 06/10/19 15:21 IMPRESSION: 1. Findings likely related to CHF. Cardiomegaly and small effusions. Marked Coronary calcification also noted. 2. Other findings as above. Assessment and Plan - Diagnosis (1) Elevated troponin I level Is this a current diagnosis for this admission?: Yes Plan: Will continue to trend patient's troponin is elevated troponin may be due to atrial arrhythmia as well as his kidney function (2) End stage renal disease Is this a current diagnosis for this admission?: Yes Plan: Last dialysis was today. His electrolytes look pretty acceptable. Will consult nephrology subsequently if patient remains in hospital over the weekend but he currently requires no dialysis (3) New onset atrial flutter Is this a current diagnosis for this admission?: Yes Plan: Cardiology consult will be obtained. I have started patient on metoprolol. I will hold off on an anticoagulant for now and will reassess in a.m. Eliquis may be a reasonable choice given his kidney function - Plan Summary Summary: I see no evidence of any infection and so will defer starting him on any antibiotics for now - Time Time Spent with patient: 35 or more minutes Medications reviewed and adjusted accordingly: Yes Anticipated discharge: Home - Inpatient Certification Based on my medical assessment, after consideration of the patient's comorbi dities, presenting symptoms, or acuity I expect that the services needed warrant INPATIENT care.: Yes Medical Necessity: Need For Continuous Telemetry Monitoring, Risk of Complication if Not Cared For in Hospital
[2019-06-10] MEDS ORDERED: POLYVINYL ALCOHOL 1.4% OPH SOLN 15 ML OU PRN (22:48)
[2019-06-10] MEDS ORDERED: DEXTROSE 50%-WATER 25 GM/50 ML DISP.SYRIN IV PRN ×2 (22:51)
[2019-06-10] MEDS ORDERED: GLUCAGON,HUMAN RECOMB 1 MG INJ IM PRN (22:51)
[2019-06-10] MEDS ORDERED: DEXTROSE 40% GEL 15 GM TUBE PO PRN ×2 (22:51)
[2019-06-10] MEDS ORDERED: HYDRALAZINE HCL INJ/PF 20 MG/1 ML SDV IV PRN (22:52)
[2019-06-10] MEDS ORDERED: METOPROLOL TARTRATE PF/INJ 5 MG/5 ML SDV IV PRN (22:52)
[2019-06-10] MEDS ORDERED: FUROSEMIDE INJ/PF 20 MG/2 ML SDV IV ONE (22:55)
--- NOTE | 2019-06-10 22:58 | PDOC PROGRESS REPORT ---
Subjective Progress Note for:: 06/10/19 Subjective:: I was called to see the patient. He still has elevated blood pressure but his atrial fibrillation has converted back to sinus rhythm. His medications need to be reconciled. His insulin regimen needs clarification as well. Reason For Visit: ATRIAL FLUTTER,ESRD Physical Exam Vital Signs: Temp Pulse Resp BP Pulse Ox 98.7 F 92 17 189/81 H 93 06/10/19 20:49 06/10/19 20:49 06/10/19 20:49 06/10/19 20:49 06/10/19 20:49 Intake & Output 06/09/19 06/10/19 06/11/19 06:59 06:59 06:59 Weight 87.8 kg General appearance: PRESENT: no acute distress, cooperative, well-developed Head exam: PRESENT: atraumatic, normocephalic Eye exam: PRESENT: conjunctiva pale. ABSENT: scleral icterus Mouth exam: PRESENT: moist, tongue midline Respiratory exam: PRESENT: rales - Most pronounced left base, symmetrical, unlabored. ABSENT: accessory muscle use, prolonged expiratory phas, rhonchi, tachypnea, wheezes Cardiovascular exam: PRESENT: RRR, +S1, +S2, systolic murmur - 3/6 GI/Abdominal exam: PRESENT: normal bowel sounds, soft. ABSENT: distended, tenderness Rectal exam: PRESENT: deferred Gentrourinary exam: ABSENT: indwelling catheter Neurological exam: PRESENT: alert, awake, oriented to person, oriented to place, oriented to time, oriented to situation, CN II-XII grossly intact Psychiatric exam: PRESENT: appropriate affect. ABSENT: agitated, anxious Focused psych exam: ABSENT: delusional, restlessness Skin exam: PRESENT: dry, warm. ABSENT: rash Results Laboratory Results: 06/10/19 13:45 06/10/19 13:45 06/10/19 06/10/19 06/10/19 13:45 13:45 13:45 WBC 5.5 RBC 2.76 L Hgb 8.9 L Hct 25.1 L MCV 91 MCH 32.3 MCHC 35.4 RDW 14.2 H Plt Count 205 Seg Neutrophils % 73.8 Sodium 141.0 Potassium 4.1 Chloride 101 Carbon Dioxide 29 Anion Gap 11 BUN 19 Creatinine 4.70 H Est GFR ( Amer) 15 L Glucose 144 H Calcium 9.5 Magnesium 2.0 Total Bilirubin 1.2 AST 26 Alkaline Phosphatase 49 Total Protein 7.4 Albumin 4.0 TSH 0.38 L Urine Color Urine Appearance Urine pH Ur Specific [place] Urine Protein Urine Glucose (UA) Urine Ketones Urine Blood Urine RBC (Auto) 06/10/19 16:11 WBC RBC Hgb Hct MCV MCH MCHC RDW Plt Count Seg Neutrophils % Sodium Potassium Chloride Carbon Dioxide Anion Gap BUN Creatinine Est GFR ( Amer) Glucose Calcium Magnesium Total Bilirubin AST Alkaline Phosphatase Total Protein Albumin TSH Urine Color YELLOW Urine Appearance CLEAR Urine pH 8.0 Ur Specific [place] 1.010 Urine Protein >=500 H Urine Glucose (UA) >=500 H Urine Ketones NEGATIVE Urine Blood NEGATIVE Urine RBC (Auto) 0 06/10/19 06/10/19 13:45 16:11 Troponin I 0.164 0.162 Impressions: Chest X-Ray 06/10/19 12:46 IMPRESSION: Patchy bibasilar opacities may represent atelectasis with small effusions or consolidation. Chest CT 06/10/19 15:21 IMPRESSION: 1. Findings likely related to CHF. Cardiomegaly and small effusions. Marked Coronary calcification also noted. 2. Other findings as above. Assessment and Plan - Diagnosis (1) New onset atrial flutter Is this a current diagnosis for this admission?: Yes Plan: Cardiology consult will be obtained. I have started patient on metoprolol. I will hold off on an anticoagulant for now and will reassess in a.m. Eliquis may be a reasonable choice given his kidney function 06/10/2019 11:30 PM The patient is back in sinus rhythm. He is not having any chest pain or palpitations. He does report some "electrical "abnormality in his heart but denies hearing the term atrial fibrillation or atrial flutter. He is on carvedilol. This certainly could be for the fibrillation or heart failure. With his acute onset of fibrillation (likely new) and already being on carvedilol, I will increase the carvedilol to 25 mg twice daily. I will stop the oral metoprolol. I have ordered intravenous metoprolol to be given for elevated heart rate. Hopefully the increased dose of carvedilol will keep the patient in sinus rhythm. We will continue to be monitored on telemetry. (2) CHF (congestive heart failure) Qualifiers: Heart failure type: unspecified Heart failure chronicity: chronic Qualified Code(s): I50.9 - Heart failure, unspecified Is this a current diagnosis for this admission?: Yes Plan: 06/10/2019 An echocardiogram was performed earlier today. The ejection fraction is reported as being normal. The report states that they could not comment on diastolic function. There was some concentric left ventricular hypertrophy reported. The patient does have moderate to severe pulmonary hypertension noted in the echocardiogram report. I was also able to review his last note from hemodialysis. They are concerned that he is retaining fluid despite his dialysis. In addition to increasing his carvedilol I will increase his furosemide. He does have rales at his left base. I will give 10 mg of IV furosemide now and increase the daily dose to 20 mg IV. His normal furosemide dosing is 20 mg p.o. daily. We will monitor his intake and output, daily weights and we will need to monitor his electrolytes. (3) Anemia Qualifiers: Anemia type: due to chronic kidney disease Chronic kidney disease stage: on chronic dialysis Qualified Code(s): N18.6 - End stage renal disease; D63.1 - Anemia in chronic kidney disease; Z99.2 - Dependence on renal dialysis Is this a current diagnosis for this admission?: Yes Plan: 06/10/2019 His hemoglobin is only 8.9. The last hemoglobin is noted in the hospital system show normal hemoglobin in 2018. I did not see any evidence of iron supplement. I will defer any immediate intervention until tomorrow. We will continue to monitor his CBC. A very low hemoglobin can reduce oncotic pressure and lead to third spacing of fluid in the extremities as well as fluid buildup in the lungs. There is no current need for transfusion. (4) Elevated troponin I level Is this a current diagnosis for this admission?: Yes Plan: Will continue to trend patient's troponin is elevated troponin may be due to atrial arrhythmia as well as his kidney function 06/10/2019 11:30 PM The patient's initial troponin was elevated. His second troponin is slightly lower. This is most likely due to his end-stage kidney disease as well as contribution from his arrhythmia. He does not complain of any chest pain or acute cardiac symptoms. Serial troponins have already been ordered. (5) End stage renal disease Is this a current diagnosis for this admission?: Yes Plan: Last dialysis was today. His electrolytes look pretty acceptable. Will consult nephrology subsequently if patient remains in hospital over the weekend but he currently requires no dialysis 06/10/2019 11:30 PM The patient just received hemodialysis today. Review of the dialysis center notes indicate that they are concerned for his fluid retention despite diabetes. We will monitor his intake and output as well as daily weights. Nephrology is aware of the patient's admission. (6) Hyperglycemia due to type 2 diabetes mellitus Qualifiers: Diabetes mellitus mcfp insulin use: with mcfp use Qualified Code(s): E11.65 - Type 2 diabetes mellitus with hyperglycemia; Z79.4 - assisted (current) use of insulin Is this a current diagnosis for this admission?: Yes Plan: 06/10/2019 11:30 PM Review with the patient indicates that he uses Lantus with a sliding scale. He still only takes the Lantus once a day. This is an atypical approach. For the time being I have ordered Accu-Cheks with meals and at bedtime. I have ordered a Humalog sliding scale. They can review his Accu-Cheks and make any changes to his medication regimen tomorrow. He did state that he tries to keep his glucose less than 125. - Plan Summary Summary: I see no evidence of any infection and so will defer starting him on any anti biotics for now - Time Total Critical Time (Minutes): 40 - Time spent at the bedside, reviewing notes from dialysis as well as medication regimen and telemetry strips Medications reviewed and adjusted accordingly: Yes
--- NOTE | 2019-06-10 23:08 | XCELERA REPORT ---
[address] [address] Transthoracic Echocardiogram Report Name: LEELEE THORNE Age: 68 yrs Gender: Male : 1950 Patient Status: Inpatient Patient Location: [address] [place], [place] [id number] Study Date: 06/10/2019 08:54 PM Height: 68 in Weight: 200 lb BSA: 2.0 m2 Procedure: A complete two-dimensional transthoracic echocardiogram was performed (2D, M-mode, spectral and color flow Doppler). The study was technically adequate with some images being suboptimal in quality. Reason For Study: New onset Atrial flutter Ordering Physician: TIM BURDEN Performed By: Thania Sosa Interpretation Summary The left ventricular ejection fraction is within normal limits. There is moderate concentric left ventricular hypertrophy. LV diastolic function could not be adequately assessed. Wall motion cannot be accurately commented on, but no definite regional wall motion abnormalities noted. The left ventricle is grossly normal size. The right ventricle is grossly normal size. The right ventricle appears to be hypertrophied The right ventricular systolic function is normal. The left atrium is moderately dilated. The right atrium is normal. There is a mild amount of mitral regurgitation There is no mitral valve stenosis. There is aortic sclerosis without aortic stenosis. There is a trace to mild amount of aortic regurgitation There is a mild amount of tricuspid regurgitation There is moderate to severe pulmonary hypertension by echo Best estimated RVSP is approximately 55-65 mm/Hg. The aortic root is not well visualized but is probably normal size. The inferior vena cava appeared normal and decreased < 50% with respiration (RAP 10-15 mmHg) There is no pericardial effusion. MMode/2D Measurements & Calculations RVDd: 3.5 cm LVIDd: 5.0 cm FS: 35.3 % Ao root diam: 3.1 cm IVSd: 2.1 cm LVIDs: 3.2 cm EDV(Teich): 116.9 ml Ao root area: 7.8 cm2 LVPWd: 1.3 cm ESV(Teich): 41.5 ml LA dimension: 4.1 cm EF(Teich): 64.5 % Doppler Measurements & Calculations MV E max chiquita: MV P1/2t max chiquita: Ao V2 max: LV V1 max P.1 cm/sec 193.0 cm/sec 193.0 cm/sec 9.6 mmHg MV A max chiquita: MV P1/2t: 66.0 msec Ao max PG: LV V1 max: 56.9 cm/sec MVA(P1/2t): 3.3 cm2 14.9 mmHg 154.9 cm/sec MV E/A: 2.8 MV dec slope: 856.7 cm/sec2 MV dec time: 0.23 sec PA V2 max: PI end-d chiquita: TR max chiquita: MV P1/2t-pr_phl: 120.6 cm/sec 146.3 cm/sec 375.5 cm/sec 66.0 msec PA max P.8 mmHg TR max P.4 mmHg Left Ventricle The left ventricle is grossly normal size. There is moderate concentric left ventricular hypertrophy. The left ventricular ejection fraction is within normal limits. LV diastolic function could not be adequately assessed. Wall motion cannot be accurately commented on, but no definite regional wall motion abnormalities noted. Right Ventricle The right ventricle is grossly normal size. The right ventricle appears to be hypertrophied. The right ventricular systolic function is normal. Atria The right atrium is normal. The left atrium is moderately dilated. Interarterial septum not well visualized and not well dopplered. Cannot comment on ASD/PFO presence. Mitral Valve The mitral valve leaflets are sclerotic and show some degree of functional abnormality. There is no mitral valve stenosis. There is a mild amount of mitral regurgitation. Aortic Valve The aortic valve is sclerotic, but shows no functional abnormality. There is aortic sclerosis without aortic stenosis. There is a trace to mild amount of aortic regurgitation. Tricuspid Valve The tricuspid valve is not well visualized, but is grossly normal. There is no tricuspid stenosis. There is a mild amount of tricuspid regurgitation. There is moderate to severe pulmonary hypertension by echo. Best estimated RVSP is approximately 55-65 mm/Hg. Pulmonic Valve The pulmonic valve is not well visualized. Great Vessels The aortic root is not well visualized but is probably normal size. The inferior vena cava appeared normal and decreased < 50% with respiration (RAP 10-15 mmHg). Effusions There is no pericardial effusion. : TIM BURDEN Shyamal
[2019-06-10] MEDS: METOPROLOL SUCCINATE 25 MG TAB.SR.24H PO SCH (23:16)
[2019-06-11] MEDS ORDERED: HYDRALAZINE HCL INJ/PF 20 MG/1 ML SDV IV PRN (03:44)
[2019-06-11] MEDS: HYDRALAZINE HCL 25 MG TABLET PO SCH ×3 (03:55→13:08)
[2019-06-11] MEDS ORDERED: HYDRALAZINE HCL INJ/PF 20 MG/1 ML SDV IV ONE ×2 (04:00→04:15)
[2019-06-11] MEDS ORDERED: CLONIDINE HCL 0.2 MG TABLET PO ONE (04:00)
[2019-06-11] MEDS ORDERED: HYDRALAZINE HCL 25 MG TABLET PO ONE (04:15)
[2019-06-11] MEDS: HEPARIN SOD (PORCINE) 5,000 UNIT/ML 1 ML VIAL SUBCUT SCH ×2 (06:05→13:07)
--- NOTE | 2019-06-11 08:36 | EKG REPORT ---
SEVERITY:- ABNORMAL ECG - SINUS RHYTHM PROBABLE LEFT ATRIAL ABNORMALITY BORDERLINE T ABNORMALITIES, LATERAL LEADS BORDERLINE PROLONGED QT INTERVAL : Confirmed by: Porter Mulligan MD 11-Jun-2019 08:35:18
[2019-06-11] MEDS: INSULIN LISPRO 100 UNIT/ML 3 ML VIAL SUBCUT SCH ×2 (09:00→12:06)
[2019-06-11] MEDS: METOPROLOL SUCCINATE 25 MG TAB.SR.24H PO SCH (09:38)
[2019-06-11] MEDS ORDERED: CLONIDINE HCL 0.1 MG TABLET PO SCH (10:00)
[2019-06-11] MEDS ORDERED: NIFEDIPINE 30 MG TAB.ER.24 PO SCH (10:00)
[2019-06-11] MEDS ORDERED: DOCUSATE SODIUM 100 MG CAPSULE PO SCH (10:00)
[2019-06-11] MEDS ORDERED: FUROSEMIDE INJ/PF 20 MG/2 ML SDV IV SCH (10:00)
[2019-06-11] MEDS ORDERED: CARVEDILOL 12.5 MG TABLET PO SCH ×2 (10:00)
[2019-06-11 11:31] VITALS: BP 120/56
[2019-06-11] MEDS ORDERED: APIXABAN 5 MG TABLET PO ONE (13:09)
--- NOTE | 2019-06-11 13:44 | PDOC CONSULTATION ---
Consultation Consult Date: 06/11/19 Attending physician:: TIM BURDEN Provider Consulted: SHAWN WHITNEY Consult reason:: Atrial fibrillation History of Present Illness Admission Date/PCP: 06/10/19 18:13 Patient complains of: Dyspnea History of Present Illness: LEELEE THORNE is a 68 year old male For the following active problems 1. End-stage renal disease on hemodialysis 2. Systemic hypertension 3. Diabetes mellitus Patient presented with complaint suggestive of paroxysmal nocturnal dyspnea. He would wake up in the early hours of the morning and start coughing. He also reports dyspnea around that time. No daytime dyspnea is reported. There is no report of chest pain. Presently since admission to the hospital his symptoms are markedly improved. Incidentally he was discovered to have atrial fibrillation on EKG as well as nuclear monitoring technician. Subsequently converted to sinus rhythm. This was without any proactive intervention. Patient does not recall any previous history of atrial fibrillation He does not smoke cigarettes. No major surgeries reported other than orthopedic surgery. No familial illnesses reported. Past Medical History Cardiac Medical History: Reports: Hyperlipidema, Hypertension Pulmonary Medical History: Reports: Bronchitis, Pneumonia Endocrine Medical History: Reports: Diabetes Mellitus Type 2 Musculoskeltal Medical History: Reports: Arthritis - MARY. HANDS Psychiatric Medical History: Reports: Depression Hematology: Denies: Anemia Past Surgical History Past Surgical History: Reports: Orthopedic Surgery - left knee replacement, back x2, knee x2 Social History Lives with: Family Smoking Status: Former Smoker Number of Years Smokin Last Time Smoked: 35 yrs ago Frequency of Alcohol Use: None Hx Recreational Drug Use: No Drugs: None Hx Prescription Drug Abuse: No - Advance Directive Resuscitation Status: Full Code Family History Family History: Reviewed & Not Pertinent Parental Family History Reviewed: No - No familial illnesses Children Family History Reviewed: NA Sibling(s) Family History Reviewed.: NA Medication/Allergy Home Medications: Carvedilol [Coreg 12.5 mg Tablet] 12.5 mg PO BID 01/27/17 Clonidine HCl 0.3 mg PO BID 01/27/17 Furosemide [Lasix 20 mg Tablet] 20 mg PO DAILY 01/27/17 Insulin Glargine,Hum.rec.anlog [Lantus] 0 units SQ .PERSLIDINGSCALE PRN 01/27/17 Nifedipine [Adalat cc] 60 mg PO BID 01/27/17 Clobetasol Propionate [Temovate 0.05% Cream 15 gm] 1 applic TOP BID 06/10/19 Propylene Glycol [Lubricant Eye Drop] 1 drop OU DAILYP PRN 06/10/19 Allergies/Adverse Reactions: Csmwszh-Iqs-Ubo Reductase Inhibitor Adverse Reaction (Verified 05/07/17 06:16) Review of Systems Constitutional: ABSENT: as per HPI, anorexia, chills, fatigue, fever(s), headache(s), night sweats, weakness, weight gain, weight loss, other Cardiovascular: PRESENT: orthropnea Gastrointestinal: PRESENT: as per HPI Genitourinary: ABSENT: as per HPI, difficulty urinating, dysuria, hematuria, nocturia, other Neurological: PRESENT: as per HPI Psychiatric: PRESENT: as per HPI Endocrine: PRESENT: as per HPI Hematologic/Lymphatic: PRESENT: as per HPI Physical Exam Vital Signs: Temp Pulse Resp BP Pulse Ox 98.0 F 65 18 120/56 L 94 06/11/19 11:25 06/11/19 11:25 06/11/19 11:40 06/11/19 11:25 06/11/19 11:40 Intake & Output 06/10/19 06/11/19 06/12/19 06:59 06:59 07:59 Intake Total 780 500 Balance 780 500 Weight 90.9 kg General appearance: PRESENT: no acute distress, cooperative, obese, well- developed Head exam: PRESENT: atraumatic, normocephalic Eye exam: PRESENT: conjunctiva pink, EOMI Mouth exam: PRESENT: moist, neck supple Neck exam: PRESENT: JVD Respiratory exam: PRESENT: crackles, decreased breath sounds, symmetrical, unlabored Cardiovascular exam: PRESENT: RRR, +S1, +S2 Pulses: PRESENT: normal radial pulses GI/Abdominal exam: PRESENT: soft Rectal exam: PRESENT: deferred Neurological exam: PRESENT: alert, awake, oriented to person, oriented to place, oriented to time, oriented to situation Psychiatric exam: PRESENT: appropriate affect Skin exam: PRESENT: dry, intact, normal color Results Laboratory Results: 06/10/19 13:45 06/10/19 13:45 06/10/19 06/10/19 06/10/19 13:45 13:45 13:45 WBC 5.5 RBC 2.76 L Hgb 8.9 L Hct 25.1 L MCV 91 MCH 32.3 MCHC 35.4 RDW 14.2 H Plt Count 205 Seg Neutrophils % 73.8 Sodium 141.0 Potassium 4.1 Chloride 101 Carbon Dioxide 29 Anion Gap 11 BUN 19 Creatinine 4.70 H Est GFR ( Amer) 15 L Glucose 144 H Calcium 9.5 Magnesium 2.0 Total Bilirubin 1.2 AST 26 Alkaline Phosphatase 49 Total Protein 7.4 Albumin 4.0 TSH 0.38 L Urine Color Urine Appearance Urine pH Ur Specific [place] Urine Protein Urine Glucose (UA) Urine Ketones Urine Blood Urine RBC (Auto) 06/10/19 16:11 WBC RBC Hgb Hct MCV MCH MCHC RDW Plt Count Seg Neutrophils % Sodium Potassium Chloride Carbon Dioxide Anion Gap BUN Creatinine Est GFR ( Amer) Glucose Calcium Magnesium Total Bilirubin AST Alkaline Phosphatase Total Protein Albumin TSH Urine Color YELLOW Urine Appearance CLEAR Urine pH 8.0 Ur Specific [place] 1.010 Urine Protein >=500 H Urine Glucose (UA) >=500 H Urine Ketones NEGATIVE Urine Blood NEGATIVE Urine RBC (Auto) 0 06/10/19 06/10/19 06/11/19 13:45 16:11 05:33 Troponin I 0.164 0.162 0.095 EKG Comments: Echocardiogram 06/10/2019 Left ventricular ejection fraction estimated to be normal. Moderate to severe pulmonary hypertension is reported. Mild to moderate Mild mitral regurgitation. Right ventricle is normal in size and function. Twelve-lead EKG 06/10/2019 Atrial fibrillation controlled ventricular response at 81 bpm Telemetry strips also confirm the presence of atrial fibrillation with conversion to sinus rhythm. Twelve-lead EKG 11 June 2019 0037 Sinus rhythm 69 bpm, left ventricular hypertrophy, left atrial abnormality, QTC [address] 06/10/2019 Findings related to congestive heart failure Chest x-ray atelectasis Impressions: Chest X-Ray 06/10/19 12:46 IMPRESSION: Patchy bibasilar opacities may represent atelectasis with small effusions or consolidation. Chest CT 06/10/19 15:21 IMPRESSION: 1. Findings likely related to CHF. Cardiomegaly and small effusions. Marked Coronary calcification also noted. 2. Other findings as above. Assessment & Plan - Diagnosis (1) Atrial fibrillation with controlled ventricular rate Is this a current diagnosis for this admission?: Yes Plan: Telemetry and EKG confirming the presence of paroxysmal atrial fibrillation. Rhythm returned to sinus without any intervention Increased risk of stroke on account of hypertension diabetes mellitus age Would recommend systemic anticoagulation. Apixaban 5 mg twice daily is a reasonable choice. I discussed the risks and benefits of systemic anticoagulation with the patient. The benefit includes prevention of strokes. The risk includes bleeding based on our discussion patient is agreeable and wants to pursue systemic anticoagulation. He is cognitively intact and is not a fall risk. (2) CHF (congestive heart failure) Qualifiers: Heart failure type: unspecified Heart failure chronicity: chronic Qualified Code(s): I50.9 - Heart failure, unspecified Is this a current diagnosis for this admission?: Yes Plan: Description of symptoms including orthopnea and PND suggest the presence of c ongestive heart failure. Left ventricular ejection fraction is preserved on echocardiogram done during this hospital admission suggesting the presence of likely diastolic heart failure. Would probably require increased fluid removal at dialysis. Would also recommend that he avoid added salt and pay greater attention to dietary intake of salt. Continue medications for systemic hypertension (3) Systemic hypertension Is this a current diagnosis for this admission?: Yes Plan: Continue carvedilol Have to watch blood pressure Avoid added salt Perhaps increase fluid removal at dialysis. Imaging studies showed presence of congestive heart failure. (4) End stage renal disease Is this a current diagnosis for this admission?: Yes Plan: Per nephrology. End-stage renal disease on hemodialysis.
--- NOTE | 2019-06-11 14:58 | PDOC DISCHARGE SUMMARY ---
Impression - Admit/DC Date/PCP Admission Date/Primary Care Provider: 06/10/19 18:13 Discharge Date: 06/11/19 - Discharge Diagnosis (1) Elevated troponin I level Is this a current diagnosis for this admission?: Yes (2) End stage renal disease Is this a current diagnosis for this admission?: Yes (3) New onset atrial flutter Is this a current diagnosis for this admission?: Yes (4) Anemia Is this a current diagnosis for this admission?: Yes (5) Atrial fibrillation with controlled ventricular rate Is this a current diagnosis for this admission?: Yes - Additional Information Resuscitation Status: Full Code Discharge Activity: Activity As Tolerated Referrals: Dheeraj PALMA MD [ACTIVE STAFF] - (sticker in book) SHAWN WHITNEY MD [ACTIVE STAFF] - (Call and make appointment for 2 -3 weeks) BRYANNA GARCIA PA [NO LOCAL MD] - Follow up as needed (Appt in 5 -7 days) Prescriptions: Carvedilol [Coreg 12.5 mg Tablet] 25 mg PO BID #60 tablet Apixaban [Eliquis 5 mg Tablet] 5 mg PO Q12 #60 tablet Home Medications: Clonidine HCl 0.3 mg PO BID 01/27/17 Furosemide [Lasix 20 mg Tablet] 20 mg PO DAILY 01/27/17 Insulin Glargine,Hum.rec.anlog [Lantus] 0 units SQ .PERSLIDINGSCALE PRN 01/27/17 Nifedipine [Adalat cc] 60 mg PO BID 01/27/17 Clobetasol Propionate [Temovate 0.05% Cream 15 gm] 1 applic TOP BID 06/10/19 Propylene Glycol [Lubricant Eye Drop] 1 drop OU DAILYP PRN 06/10/19 Apixaban [Eliquis 5 mg Tablet] 5 mg PO Q12 #60 tablet 06/11/19 Carvedilol [Coreg 12.5 mg Tablet] 25 mg PO BID #60 tablet 06/11/19 History of Present Illiness History of Present Illness: LEELEE THORNE is a 68 year old male Patient presents emergency room with complaint of difficulty breathing and shortness of breath. This has been going on for the last 3 weeks. He is a dialysis patient and his last dialysis was today. Patient states is normally pretty compliant. He was found to be in new onset atrial fibrillation in the emergency room. He has been in the hospital multiple times before and is. His EKG did not show evidence of atrial arrhythmias. The scan of the chest reveal cardiomegaly and small effusions. There was noted a suspected megaly although thyroid function test is noted to be normal. Patient was also found to have an elevated troponin at 0.162 and 0.164 however this is likely due to his dialysis and arrhythmia. He denies any chest pain. The troponin is flat but will continue to trend. The same level is within normal. EKG shows atrial flutter with predominant 4-1 AV block rate there is no evidence of clinical pneumonia this is likely due to atrial arrhythmia with tachycardia, as well as renal function. Hospital Course Hospital Course: Patient was admitted to telemetry unit due to atrial flutterfibrillation. He apparently converted without any intervention after a few hours. Patient had been on Coreg prehospitalization and this was increased from 12.5 mg to 25 mg. He was started on apixaban to discharge. He was seen by Dr. Whitney, endless belt finisher whose recommendations are noted. Patient remains in sinus rhythm at this time. He did have elevated troponin but this was thought to be secondary to his arrhythmia. CT scan revealed findings likely related to cardiomegaly and small effusions. Patient's blood pressure was also relatively well controlled. Because of his chads score greater than 3 patient was started on anticoagulant. Echocardiogram revealed preserved ejection fraction although he was noted to have increased vascular congestion on imaging studies. This is likely diastolic dysfunction and related to patient's end-stage renal disease. He says he is compliant with his dialysis as well as his medication regimen Physical Exam Vital Signs: Temp Pulse Resp BP Pulse Ox 98.0 F 65 18 120/56 L 94 06/11/19 11:25 06/11/19 11:25 06/11/19 11:40 06/11/19 11:25 06/11/19 11:40 Intake & Output 06/10/19 06/11/19 06/12/19 06:59 06:59 07:59 Intake Total 780 500 Balance 780 500 Weight 90.9 kg General appearance: PRESENT: no acute distress, well-developed, well-nourished Head exam: PRESENT: atraumatic, normocephalic Eye exam: PRESENT: conjunctiva pink, PERRLA. ABSENT: scleral icterus Mouth exam: PRESENT: tongue midline Neck exam: ABSENT: carotid bruit, JVD, lymphadenopathy, thyromegaly Respiratory exam: PRESENT: clear to auscultation kelsey. ABSENT: rales, rhonchi, wheezes Cardiovascular exam: PRESENT: RRR, +S1, +S2, other - LUE AV fistula. ABSENT: diastolic murmur, rubs, systolic murmur Pulses: PRESENT: normal dorsalis pedis pul Vascular exam: PRESENT: normal capillary refill GI/Abdominal exam: PRESENT: normal bowel sounds, soft. ABSENT: distended, guarding, mass, organolmegaly, rebound, tenderness Rectal exam: PRESENT: deferred Extremities exam: PRESENT: full ROM, +1 edema. ABSENT: calf tenderness, clubbing, pedal edema Musculoskeletal exam: PRESENT: ambulatory, full ROM Neurological exam: PRESENT: alert, awake, oriented to person, oriented to place, oriented to time, oriented to situation, CN II-XII grossly intact. ABSENT: motor sensory deficit Psychiatric exam: PRESENT: appropriate affect, normal mood. ABSENT: homicidal ideation, suicidal ideation Skin exam: PRESENT: dry, intact, warm. ABSENT: cyanosis, rash Results Laboratory Results: WBC 5.5 10^3/uL (4.0-10.5) 06/10/19 13:45 RBC 2.76 10^6/uL (4.35-5.55) L 06/10/19 13:45 Hgb 8.9 g/dL (13.5-17.0) L 06/10/19 13:45 Hct 25.1 % (37.9-51.0) L 06/10/19 13:45 MCV 91 fl (80-97) 06/10/19 13:45 MCH 32.3 pg (27.0-33.4) 06/10/19 13:45 MCHC 35.4 g/dL (32.0-36.0) 06/10/19 13:45 RDW 14.2 % (11.5-14.0) H 06/10/19 13:45 Plt Count 205 10^3/uL (150-450) 06/10/19 13:45 Lymph % (Auto) 8.5 % (13-45) L 06/10/19 13:45 [place] % (Auto) 16.0 % (3-13) H 06/10/19 13:45 Eos % (Auto) 0.4 % (0-6) 06/10/19 13:45 Baso % (Auto) 1.3 % (0-2) 06/10/19 13:45 Absolute Neuts (auto) 4.1 10^3/uL (1.7-8.2) 06/10/19 13:45 Absolute Lymphs (auto) 0.5 10^3/uL (0.5-4.7) 06/10/19 13:45 Absolute Monos (auto) 0.9 10^3/uL (0.1-1.4) 06/10/19 13:45 Absolute Eos (auto) 0.0 10^3/uL (0.0-0.6) 06/10/19 13:45 Absolute Basos (auto) 0.1 10^3/uL (0.0-0.2) 06/10/19 13:45 Seg Neutrophils % 73.8 % (42-78) 06/10/19 13:45 Sodium 141.0 mmol/L (137-145) 06/10/19 13:45 Potassium 4.1 mmol/L (3.6-5.0) 06/10/19 13:45 Chloride 101 mmol/L (98-107) 06/10/19 13:45 Carbon Dioxide 29 mmol/L (22-30) 06/10/19 13:45 Anion Gap 11 (5-19) 06/10/19 13:45 BUN 19 mg/dL (7-20) 06/10/19 13:45 Creatinine 4.70 mg/dL (0.52-1.25) H 06/10/19 13:45 Est GFR ( Amer) 15 (>60) L 06/10/19 13:45 Est GFR (MDRD) Non-Af 12 (>60) L 06/10/19 13:45 Glucose 144 mg/dL (75-110) H 06/10/19 13:45 POC Glucose 118 mg/dL (70-110) H 06/11/19 11:26 Calcium 9.5 mg/dL (8.4-10.2) 06/10/19 13:45 Magnesium 2.0 mg/dL (1.6-2.3) 06/10/19 13:45 Total Bilirubin 1.2 mg/dL (0.2-1.3) 06/10/19 13:45 Direct Bilirubin 0.4 mg/dL (0.0-0.4) 06/10/19 13:45 Neonat Total Bilirubin Not Reportable 06/10/19 13:45 Neonat Direct Bilirubin Not Reportable 06/10/19 13:45 Neonat Indirect Bili Not Reportable 06/10/19 13:45 AST 26 U/L (17-59) 06/10/19 13:45 ALT 25 U/L (<50) 06/10/19 13:45 Alkaline Phosphatase 49 U/L (38-126) 06/10/19 13:45 Troponin I 0.095 ng/mL 06/11/19 05:33 Total Protein 7.4 g/dL (6.3-8.2) 06/10/19 13:45 Albumin 4.0 g/dL (3.5-5.0) 06/10/19 13:45 TSH 0.38 uIU/mL (0.47-4.68) L 06/10/19 13:45 Urine Color YELLOW 06/10/19 16:11 Urine Appearance CLEAR 06/10/19 16:11 Urine pH 8.0 (5.0-9.0) 06/10/19 16:11 Ur Specific [place] 1.010 06/10/19 16:11 Urine Protein >=500 mg/dL (NEGATIVE) H 06/10/19 16:11 Urine Glucose (UA) >=500 mg/dL (NEGATIVE) H 06/10/19 16:11 Urine Ketones NEGATIVE mg/dL (NEGATIVE) 06/10/19 16:11 Urine Blood NEGATIVE (NEGATIVE) 06/10/19 16:11 Urine Nitrite (Reflex) NEGATIVE (NEGATIVE) 06/10/19 16:11 Urine Bilirubin NEGATIVE (NEGATIVE) 06/10/19 16:11 Urine Urobilinogen NEGATIVE mg/dL (<2.0) 06/10/19 16:11 Leukocyte Esterase Rfl NEGATIVE (NEGATIVE) 06/10/19 16:11 Urine RBC (Auto) 0 /HPF 06/10/19 16:11 Urine WBC (Reflex) 2 /HPF 06/10/19 16:11 Squamous Epi Cells Auto 1 /HPF 06/10/19 16:11 Urine Mucus (Auto) RARE /LPF 06/10/19 16:11 Urine Ascorbic Acid NEGATIVE (NEGATIVE) 06/10/19 16:11 06/10/19 06/10/19 06/11/19 13:45 16:11 05:33 Troponin I 0.164 0.162 0.095 Impressions: Chest X-Ray 06/10/19 12:46 IMPRESSION: Patchy bibasilar opacities may represent atelectasis with small effusions or consolidation. Chest CT 06/10/19 15:21 IMPRESSION: 1. Findings likely related to CHF. Cardiomegaly and small effusions. Marked Coronary calcification also noted. 2. Other findings as above. Plan Health Concerns: Suggest increase dialysis due to signs of fluid overload on imaging studies Time Spent: Greater than 30 Minutes Stroke Is this a Stroke Patient?: No Acute Heart Failure - Is this a Heart Failure Patient?: Yes Documentation of LVEF assessment?: Yes LVEF < 40%?: No- if no continue to question #3 3. Anticoagulant therapy for permanect/persistent/paraoxysmal Afib or Aflutter: Yes Follow-up Appointment scheduled within 7 days?: Yes
== END 2019-06-11 15:55 | disposition home or self-care (01) | DRG 308 ==
LOC: ER 12:03 → UNDOADMIN 18:13 → EH 18:13 → 3N 20:45
PROVIDERS: ADMIT Internal Medicine; ATTEND Internal Medicine
DX: I48.91 Unspecified atrial fibrillation (principal); N18.6 End stage renal disease; I13.2 Hypertensive heart and chronic kidney disease with heart failure and with stage 5 chronic kidney disease, or end stage renal disease; I48.92 Unspecified atrial flutter; I50.9 Heart failure, unspecified; D63.1 Anemia in chronic kidney disease; E11.65 Type 2 diabetes mellitus with hyperglycemia; E11.22 Type 2 diabetes mellitus with diabetic chronic kidney disease; R06.00 Dyspnea, unspecified; Z99.2 Dependence on renal dialysis; Z79.4 Long term (current) use of insulin; Z79.899 Other long term (current) drug therapy
CPT/HCPCS: 36415; 71045; 71250; 80053; 81001; 82962; 83735; 84443; 84484; 85025; 93005; 93010; 93306; 94640; 96374; 99285; J0360; J1644; J1815; J1940; J2930; J3490; J7620

== ENCOUNTER 2019-09-16 11:31 | Emergency (ER) | payer OTHER, MEDICARE ==
--- NOTE | 2019-09-16 13:21 | ER Document Report ---
ED Extremity Problem, Lower - General Chief Complaint: Leg Pain Stated Complaint: LEG PAIN Time Seen by Provider: 09/16/19 12:55 Primary Care Provider: GAVIOTA GARCIA [Primary Care Provider] - Follow up as needed Notes: CHIEF COMPLAINT: Left foot injury, left leg pain HPI: 69-year-old male who is a dialysis patient Fridays sent in for evaluation of left leg swelling. Patient states that he injured the second third and fourth toes of the left foot 2 weeks ago and has had some swelling and pain in the foot. States he has slight chronic swelling in the bilateral lower extremities from his diabetes but has a new provider who saw his leg today and decided she wanted to get a Doppler ultrasound to evaluate for DVT. Patient denies calf pain. Denies chest pain shortness of breath. Denies fever ROS: See HPI - all other systems were reviewed and are otherwise negative Constitutional: no fever Eyes: no drainage, no blurred vision ENT: no runny nose, no sore throat Cardiovascular: no chest pain Resp: no SOB, no cough GI: no vomiting, no diarrhea, no abdominal pain : no dysuria Integumentary: no rash Allergy: no hives Musculoskeletal: + extremity pain or swelling Neurological: no numbness/tingling, no weakness MEDICATIONS: I agree with the patient medications as charted by the RN. ALLERGIES: I agree with the allergies as charted by the RN. PAST MEDICAL HISTORY/PAST SURGICAL HISTORY: Reviewed and agree as charted by RN. SOCIAL HISTORY: Reviewed and agree as charted by RN. FAMILY HISTORY: No significant familial comorbid conditions directly related to patient complaint EXAM: Reviewed vital signs as charted by RN. CONSTITUTIONAL: Alert and oriented and responds appropriately to questions. Well-appearing; well-nourished HEAD: Normocephalic; atraumatic EYES: PERRL; Conjunctivae clear, sclerae non-icteric ENT: normal nose; no rhinorrhea; moist mucous membranes; pharynx without lesions noted, no uvula edema or deviation, no tonsillar hypertrophy, phonation normal NECK: Supple without meningismus; non-tender; no cervical lymphadenopathy, no masses CARD: RRR; no murmurs, no clicks, no rubs, no gallops; symmetric distal pulses RESP: Normal chest excursion without splinting or tachypnea; breath sounds clear and equal bilaterally; no wheezes, no rhonchi, no rales, pulse oximetry 96% on room air not hypoxic ABD/GI: Normal bowel sounds; non-distended; soft, non-tender, no rebound, no guarding; no palpable organomegaly or masses. BACK: The back appears normal and is non-tender to palpation, there is no CVA tenderness EXT: Normal ROM in all joints; very slight tenderness on palpation over the distal MTP region of the second third and fourth toes without visible bruising but very slight soft tissue swelling. Dorsalis pedis and posterior tibial pulses are present in the left foot and ankle. There is no malleolus tenderness on palpation of the left ankle. Chronic lymphedema skin changes over the anterior bilateral ankles and lower legs. There is no calf pain on palpation of the left or right calves. Very slight edema noted bilateral lower extremities. Shunt in the left wrist with intact thrill and bruit SKIN: Normal color for age and race; warm; dry; good turgor; no acute lesions noted NEURO: Moves all extremities equally; Motor and sensory function intact PSYCH: The patient's mood and manner are appropriate. Grooming and personal hygiene are appropriate. MDM: 69-year-old male sent in for Doppler study to evaluate for DVT of the left lower extremity has absolutely no calf pain. Head injury to the left foot and toes 2 weeks ago will obtain x-ray for fracture. TRAVEL OUTSIDE OF THE [place] IN LAST 30 DAYS: No - Related Data Allergies/Adverse Reactions: Azxmzxx-Fya-Mbh Reductase Inhibitor Adverse Reaction (Verified 05/07/17 06:16) Past Medical History - Social History Smoking Status: Unknown if Ever Smoked Family History: Reviewed & Not Pertinent Patient has homicidal ideation: No - Past Medical History Cardiac Medical History: Reports: Hx Hypercholesterolemia, Hx Hypertension Pulmonary Medical History: Reports: Hx Bronchitis, Hx Pneumonia Endocrine Medical History: Reports: Hx Diabetes Mellitus Type 2 Musculoskeletal Medical History: Reports Hx Arthritis - MARY. HANDS, Reports Hx Musculoskeletal Deformity, Reports Hx Musculoskeletal Trauma Psychiatric Medical History: Reports: Hx Depression Past Surgical History: Reports: Hx Orthopedic Surgery - left knee replacement, back x2, knee x2 - Immunizations Hx Diphtheria, Pertussis, Tetanus Vaccination: Yes Physical Exam - Vital signs Vitals: Temp Pulse Resp BP Pulse Ox 97.8 F 64 19 170/69 H 97 09/16/19 11:35 09/16/19 11:35 09/16/19 11:35 09/16/19 11:35 09/16/19 11:35 Course - Re-evaluation Re-evalutation: 09/16/19 15:12 Doppler study has not yet been performed. Foot x-ray is negative. And having nursing staff attempting to contact the Doppler team to obtain the study 09/16/19 16:12 I spoke with the roadway technician, Doppler of the left leg is negative for DVT. Will discharge home to follow back up with PCP - Vital Signs Vital signs: Temp Pulse Resp BP Pulse Ox 97.8 F 64 19 170/69 H 97 09/16/19 12:39 09/16/19 11:35 09/16/19 11:35 09/16/19 11:35 09/16/19 11:35 Discharge - Discharge Clinical Impression: Chronic acquired lymphedema Sprain of left foot Qualifiers: Encounter type: initial encounter Qualified Code(s): S93.602A - Unspecified sprain of left foot, initial encounter Condition: Stable Disposition: HOME, SELF-CARE Additional Instructions: Your Doppler study was negative for DVT today. Your x-ray was negative for fracture today. Follow back up with your primary care providers for reevaluation of your symptoms. Referrals: [facility] [Primary [facility] Provider] - Follow up as needed
--- NOTE | 2019-09-16 13:44 | RADIOLOGY REPORT (SQ) ---
EXAM DESCRIPTION: FOOT LEFT COMPLETE IMAGES COMPLETED DATE/TIME: 09/16/2019 1:34 pm REASON FOR STUDY: injury COMPARISON: None. NUMBER OF VIEWS: Three views. TECHNIQUE: AP, lateral and oblique radiographic images acquired of the left foot. LIMITATIONS: None. FINDINGS: MINERALIZATION: Normal. BONES: No acute fracture or dislocation. No worrisome bone lesions. JOINTS: No effusions. SOFT TISSUES: No soft tissue swelling. No foreign body. OTHER: No other significant finding. IMPRESSION: NEGATIVE STUDY OF THE LEFT FOOT. NO RADIOGRAPHIC EVIDENCE OF ACUTE INJURY. TECHNICAL DOCUMENTATION: JOB ID: [id number] 2010 [employer]- All Rights Reserved Reading location - IP/workstation name: [email or web address]
[2019-09-16 16:36] VITALS: BP 169/96
--- NOTE | 2019-09-16 16:44 | RADIOLOGY REPORT (SQ) ---
EXAM DESCRIPTION: VENOUS UNILATERAL LOWER IMAGES COMPLETED DATE/TIME: 09/16/2019 4:27 pm REASON FOR STUDY: r/o dvt left leg COMPARISON: None. TECHNIQUE: Dynamic and static huertas scale and color images acquired of the left leg venous system. Se lected spectral images acquired with additional compression and augmentation maneuvers. The contralat eral common femoral vein and saphenofemoral junction were also imaged. Images stored on PACS. LIMITATIONS: None. FINDINGS: COMMON FEMORAL: Normal phasicity, compression and augmentation. No visualized echogenic ma terial on huertas scale. No defects on color images. FEMORAL: Normal compression and augmentation. No visualized echogenic material on huertas scale. No defe cts on color images. POPLITEAL: Normal compression, augmentation. No visualized echogenic material on huertas scale. No defec ts on color images. CALF VESSELS: Normal compression, augmentation. No visualized echogenic material on huertas scale. No de fects on color images. GSV and SSV: Normal compression, augmentation. No visualized echogenic material on huertas scale. No def ects on color images. ANY DEEP VENOUS INSUFFICIENCY: Not evaluated. ANY EVIDENCE OF POPLITEAL CYST: No. OTHER: No other significant finding. CONTRALATERAL COMMON FEMORAL VEIN AND SAPHENOFEMORAL JUNCTION: Normal phasicity, compression and augmentation. No visualized echogenic material on huertas scale. No de fects on color images. IMPRESSION: NO EVIDENCE DVT OR SVT IN THE LEFT LEG. TECHNICAL DOCUMENTATION: JOB ID: [id number] 2010 [employer]- All Rights Reserved Reading location - IP/workstation name: [email or web address]
== END 2019-09-16 16:36 | disposition home or self-care (01) ==
LOC: ER 11:31
DX: S93.602A Unspecified sprain of left foot, initial encounter (principal); X58.XXXA Exposure to other specified factors, initial encounter; I89.0 Lymphedema, not elsewhere classified; E11.9 Type 2 diabetes mellitus without complications; I10 Essential (primary) hypertension
CPT/HCPCS: 93971; 99284

== ENCOUNTER 2019-09-27 17:15 | Inpatient (IN) | payer OTHER, MEDICARE ==
[2019-09-27] MEDS ORDERED: NITROGLYCERIN/D5W 50 MG/250 ML RTUINJ IV PRN (17:19)
[2019-09-27] MEDS ORDERED: PROPOFOL 1,000 MG/100 ML INFUS..BTL IV PRN ×2 (17:30→17:36)
[2019-09-27] MEDS ORDERED: FUROSEMIDE INJ/PF 40 MG/4 ML SDV IV ONE ×2 (17:33→23:09)
[2019-09-27] MEDS ORDERED: PROPOFOL INJ 200 MG/20 ML VIAL IV ONE (17:41)
--- NOTE | 2019-09-27 17:44 | RADIOLOGY REPORT (SQ) ---
EXAM DESCRIPTION: CHEST SINGLE VIEW IMAGES COMPLETED DATE/TIME: 09/27/2019 5:31 pm REASON FOR STUDY: RESP DISTRESS/ ETT PLACEMENT COMPARISON: 06/10/2019 EXAM PARAMETERS: NUMBER OF VIEWS: One view. TECHNIQUE: Single frontal radiographic view of the chest acquired. RADIATION DOSE: NA LIMITATIONS: None. FINDINGS: LUNGS AND PLEURA: Fluffy asymmetrical infiltrates, greater on the right than the left. MEDIASTINUM AND HILAR STRUCTURES: No masses. Contour normal. HEART AND VASCULAR STRUCTURES: Heart size is borderline. BONES: No acute findings. HARDWARE: Endotracheal tube has its tip 5 cm above the wes. OTHER: No other significant finding. IMPRESSION: Borderline cardiomegaly with pulmonary edema. Endotracheal tube placement. TECHNICAL DOCUMENTATION: JOB ID: [id number] 2010 [employer]- All Rights Reserved Reading location - IP/workstation name: [email or web address]
[2019-09-27 17:55] LABS: HEMATOCRIT 36.5 % (37.9-51.0); HEMOGLOBIN 11.9 g/dL (13.5-17.0); MEAN CORPUSCULAR HEMOGLOBIN 30.2 pg (27.0-33.4); MEAN CORPUSCULAR HGB CONC 32.5 g/dL (32.0-36.0); MEAN CORPUSCULAR VOLUME 93 fl (80-97); PLATELET COUNT 381 10^3/uL (150-450); RED BLOOD COUNT 3.93 10^6/uL (4.35-5.55); RED CELL DISTRIBUTION WIDTH 15.5 % (11.5-14.0); WHITE BLOOD COUNT 17.2 10^3/uL (4.0-10.5)
[2019-09-27 18:11] LABS: ALBUMIN 4.2 g/dL (3.5-5.0); ALKALINE PHOSPHATASE 61 U/L (38-126); ANION GAP 13 (5-19); ASPARTATE AMINO TRANSFERASE 20 U/L (17-59); BILIRUBIN,DIRECT 0.2 mg/dL (0.0-0.4); BILIRUBIN,TOTAL 0.7 mg/dL (0.2-1.3); BLOOD UREA NITROGEN 47 mg/dL (7-20); CALCIUM 9.4 mg/dL (8.4-10.2); CARBON DIOXIDE 23 mmol/L (22-30); CHLORIDE 101 mmol/L (98-107); GLUCOSE 294 mg/dL (75-110); POTASSIUM 5.1 mmol/L (3.6-5.0); TOTAL PROTEIN 7.4 g/dL (6.3-8.2); TRIGLYCERIDES 134 mg/dL (<150)
[2019-09-27 18:17] LABS: ABSOLUTE LYMPHOCYTES# (MANUAL) 1.5 10^3/uL (0.5-4.7); ANISOCYTOSIS SLIGHT; BASOPHILS % (MANUAL) 0 % (0-2); EOSINOPHILS % (MANUAL) 3 % (0-6); LYMPHOCYTES % (MANUAL) 9 % (13-45); MONOCYTES % (MANUAL) 6 % (3-13); PLATELET CLUMPS PRESENT; PLATELET COMMENT ADEQUATE; PLATELET GIANT PRESENT; PLATELET LARGE PRESENT; SEGMENTED NEUTROPHILS % (MAN) 82 % (42-78); TOTAL CELLS COUNTED 100; TOXIC GRANULATION SLIGHT
--- NOTE | 2019-09-27 18:37 | ER Document Report ---
ED General - General Chief Complaint: Respiratory Distress Stated Complaint: RESPIRATORY DISTRESS Time Seen by Provider: 09/27/19 17:28 Primary Care Provider: GAVIOTA GARCIA [Primary Care Provider] - Follow up as needed Mode of Arrival: Medic Information source: Emergency Med Personnel Cannot obtain history due to: Intubated TRAVEL OUTSIDE OF THE [place] IN LAST 30 DAYS: No - HPI Onset: Just prior to arrival Onset/Duration: Sudden Severity: Severe Context: In dental office Notes: Patient arrives intubated by EMS. EMS states that patient was having a dental procedure performed when he began to have problems breathing. EMS states they found the patient having significantly labored breathing with tachypnea and hypoxia. They states that they intubated the patient in the back of the ambulance. His blood pressures been elevated persistently in route therefore they started a nitro glycerin drip. Patient was also given ketamine and succinylcholine. There was no apparent cardiac rhythm issues in route. - Related Data Allergies/Adverse Reactions: Behetlt-Xkb-Slf Reductase Inhibitor Adverse Reaction (Verified 05/07/17 06:16) Past Medical History - General Information source: Emergency Med Personnel, [facility] Records Cannot obtain history due to: Intubated - Social History Smoking Status: Former Smoker Frequency of alcohol use: None Drug Abuse: None Family History: Reviewed & Not Pertinent - Past Medical History Cardiac Medical History: Reports: Hx Hypercholesterolemia, Hx Hypertension Pulmonary Medical History: Reports: Hx Bronchitis, Hx Pneumonia Endocrine Medical History: Reports: Hx Diabetes Mellitus Type 2 Musculoskeletal Medical History: Reports Hx Arthritis - MARY. HANDS, Reports Hx Musculoskeletal Deformity, Reports Hx Musculoskeletal Trauma Psychiatric Medical History: Reports: Hx Depression Past Surgical History: Reports: Hx Orthopedic Surgery - left knee replacement, back x2, knee x2 - Immunizations Hx Diphtheria, Pertussis, Tetanus Vaccination: Yes Review of Systems - Review of Systems -: Yes ROS unobtainable due to patient's medical condition - Cannot obtain review of symptoms due to patient being intubated Physical Exam - Vital signs Vitals: Pulse Ox 93 09/27/19 17:15 Interpretation: Hypertensive - General General appearance: Unresponsive - HEENT Head: Normocephalic, Atraumatic Eyes: Normal Pupils: PERRL - Respiratory Respiratory status: Other - Intubated Chest status: No: Chest mass, Ecchymosis Breath sounds: Decreased air movement Chest palpation: Normal - Cardiovascular Rhythm: Regular Heart sounds: Normal auscultation Murmur: No - Abdominal Inspection: Normal Distension: No distension Bowel sounds: Normal Tenderness: Nontender Organomegaly: No organomegaly - Back Back: Normal, Nontender - Extremities General upper extremity: Normal inspection, Normal color, Normal temperature General lower extremity: Edema - 2+ bilaterally with venous stasis changes to the left lower extremity, Normal temperature. No: Myranda's sign - Neurological [place] Coma Scale Eye Opening: None [place] Coma Scale Verbal: None [place] Coma Scale Motor: Localizes to Pain Helen Coma Scale Total: 7 - Psychological Associated symptoms: Psychomotor depression, Uncooperative - Skin Skin Temperature: Warm Skin Moisture: Dry Skin Turgor: Edematous Course - Re-evaluation Re-evalutation: 09/27/19 18:40 Patient arrives by EMS intubated. Patient is a dialysis patient but is unknown when he last dialyzed. I called and spoke with Dr. Lakhani who states that he would like the patient be given Lasix and that he will dialyze the patient tomorrow. Lasix was ordered. I have also ordered propofol and will continue with the nitro drip as his blood pressure is significantly elevated. He has adequate saturation on the ventilator. His potassium is slightly elevated but not enough to require treatment at this time. He will receive a COVID test. Do not see any evidence of pneumonia. The and employment coach has seen the patient as well and has written orders. - Vital Signs Vital signs: Temp Pulse Resp BP Pulse Ox 93 09/27/19 17:15 - Laboratory Result Diagrams: 09/27/19 17:28 09/27/19 17:28 Laboratory results interpreted by me: 09/27/19 09/27/19 17:28 17:28 WBC 17.2 H RBC 3.93 L Hgb 11.9 L Hct 36.5 L RDW 15.5 H Seg Neuts % (Manual) 82 H Lymphocytes % (Manual) 9 L Abs Neuts (Manual) 14.1 H Sodium 136.6 L Potassium 5.1 H BUN 47 H Creatinine 8.78 H Est GFR ( Amer) 7 L Est GFR (MDRD) Non-Af 6 L Glucose 294 H - Diagnostic Test Radiology reviewed: Image reviewed, Reports reviewed - EKG Interpretation by Me EKG shows normal: Sinus rhythm Rate: Normal - 85 Rhythm: NSR [place]/QRS: No: Right axis deviation, Left axis deviation Critical Care Note - Critical Care Note Total time excluding time spent on procedures (mins): 45 Comments: 45 minutes of critical care time were spent on this patient. Time was spent talking to multiple consultants. Time was spent doing multiple reassessments. Time was spent reviewing old records. Time was spent reviewing imaging and laboratory values. Discharge - Discharge Clinical Impression: End stage renal disease Acute respiratory failure Qualifiers: Respiratory failure complication: hypoxia and hypercapnia Qualified Code(s): J96.01 - Acute respiratory failure with hypoxia; J96.02 - Acute respiratory oswald lure with hypercapnia Condition: Critical Disposition: ADMITTED INPATIENT Admitting Provider: Freddie (Life Educator) Unit Admitted: ICU [facility]errals: [facility] [[facility]] - Follow up as needed
[2019-09-27 19:13] LABS: C-REACTIVE PROTEIN 12.1 mg/L (<10.0)
--- NOTE | 2019-09-27 19:22 | RADIOLOGY REPORT (SQ) ---
EXAM DESCRIPTION: CT HEAD WITHOUT IMAGES COMPLETED DATE/TIME: 09/27/2019 7:10 pm REASON FOR STUDY: anisocoria COMPARISON: None. TECHNIQUE: Axial images acquired through the brain without intravenous contrast. Images reviewed wi th bone, brain and subdural windows. Additional sagittal and coronal reconstructions were generated. Images stored on PACS. All CT scanners at this facility use dose modulation, iterative reconstruction, and/or weight based d osing when appropriate to reduce radiation dose to as low as reasonably achievable (ALARA). [facility]: Dose Right [facility]: CareDose [facility]: Dose Right [facility]: Teradose 4D [facility]: Smart Wetpaint RADIATION DOSE: CT Rad equipment meets quality standard of care and radiation dose reduction techniq ues were employed. CTDIvol: 53.2 mGy. DLP: 1017 mGy-cm. mGy. LIMITATIONS: None. FINDINGS: VENTRICLES: Normal size and contour. CEREBRUM: No masses. No hemorrhage. No midline shift. No evidence for acute infarction. Areas of l ow density in the white matter most likely chronic small vessel ischemic changes. CEREBELLUM: No masses. No hemorrhage. No alteration of density. No evidence for acute infarction. EXTRAAXIAL SPACES: No fluid collections. No masses. ORBITS AND GLOBE: No intra- or extraconal masses. Normal contour of globe without masses. CALVARIUM: No fracture. PARANASAL SINUSES: No fluid or mucosal thickening. SOFT TISSUES: No mass or hematoma. OTHER: No other significant finding. IMPRESSION: CHRONIC MICROVASCULAR ISCHEMIA. NO ACUTE IMAGING FINDINGS IN THE BRAIN. EVIDENCE OF ACUTE STROKE: NO. COMMENT: Quality ID # [id number]: Final reports with documentation of one or more dose reduction techniques (e.g., Automated exposure control, adjustment of the mA and/or kV according to patient size, use of iterative reconstruction technique) TECHNICAL DOCUMENTATION: JOB ID: [id number] 2010 [employer]- All Rights Reserved Reading location - IP/workstation name: [email or web address]
[2019-09-27] MEDS ORDERED: DEXTROSE 40% GEL 15 GM TUBE PO PRN ×3 (20:16→21:45)
[2019-09-27] MEDS ORDERED: GLUCAGON,HUMAN RECOMB 1 MG INJ IM PRN (20:16)
[2019-09-27] MEDS ORDERED: DEXTROSE 50%-WATER 25 GM/50 ML DISP.SYRIN IV PRN ×2 (20:16)
--- NOTE | 2019-09-27 20:19 | CRITICAL CARE ADMISSION REPORT ---
HPI Date:: 09/27/19 Time:: 18:26 Reason for ICU Reason:: acute respiratory failure Admission Date/Time & PCP: Admission Date/Time: Primary Care Provider: MA JOSE HPI: This 69-year-old male reformed smoker presented to [facility] emergency department via EMS after undergoing endotracheal intubation. He apparently was at his dentist's office and was about to undergo dental work, which required administration of 4% prilocaine (1.8 mL x 5 vials) and mepivacaine (2% 1.7 mL x 2 vials, 3% 1.7 mL x 3 vials). The patient reportedly developed respiratory distress, described as tachypnea and cyanosis. He was in extremis. EMS was called, and the patient was intubated in the field. In the emergency department, the patient also demonstrated accelerated hypertension. At the time of clinical interview, the patient has been started on nitroglycerin infusion along with propofol for sedation. He was reportedly moving all 4 extremities (combatively) prior to starting propofol. History obtained from:: Discussion with Dr. Thurston - Diagnosis/Plan (1) Accelerated hypertension Is this a current diagnosis for this admission?: Yes Plan: Currently on nitroglycerin infusion. Home antihypertensive regimen: Nifedipine 60 mg p.o. twice daily, carvedilol 25 mg p.o. twice daily, clonidine 0.3 mg p.o. 3 times daily. (2) Endotracheally intubated Is this a current diagnosis for this admission?: Yes Plan: Sedation with propofol. Titrate vent settings based on ABG results. (3) Abnormal CXR Is this a current diagnosis for this admission?: Yes Plan: Empiric Zosyn for aspiration pneumonia. (4) Leukocytosis Qualifiers: Leukocytosis type: bandemia Qualified Code(s): D72.825 - Bandemia Is this a current diagnosis for this admission?: Yes (5) Lymphocytopenia Is this a current diagnosis for this admission?: Yes Plan: SARS-2-CoV testing. (6) Hyperkalemia Is this a current diagnosis for this admission?: Yes (7) QT prolongation Is this a current diagnosis for this admission?: Yes Plan: Check ioinized Ca. (8) End stage renal disease Is this a current diagnosis for this admission?: Yes Plan: Anticipating HD tomorrow. Past Medical History Cardiac Medical History: Reports: Hyperlipidema, Hypertension Pulmonary Medical History: Reports: Bronchitis, Pneumonia Endocrine Medical History: Reports: Diabetes Mellitus Type 2 Musculoskeltal Medical History: Reports: Arthritis - MARY. HANDS Psychiatric Medical History: Reports: Depression Hematology: Denies: Anemia Past Surgical History Past Surgical History: Reports: Orthopedic Surgery - left knee replacement, back x2, knee x2 Social/Family History - Social History Lives with: Other - The patient apparently raises his 13-year-old grandson. Next of kin is a sister. Smoking Status: Former Smoker Frequency of Alcohol Use: None Hx Recreational Drug Use: No Drugs: None Hx Prescription Drug Abuse: No - Medication/Allergies Home Medications: Clonidine HCl 0.3 mg PO BID 01/27/17 Furosemide [Lasix 20 mg Tablet] 20 mg PO DAILY 01/27/17 Insulin Glargine,Hum.rec.anlog [Lantus] 0 units SQ .PERSLIDINGSCALE PRN 01/27/17 Nifedipine [Adalat cc] 60 mg PO BID 01/27/17 Clobetasol Propionate [Temovate 0.05% Cream 15 gm] 1 applic TOP BID 06/10/19 Propylene Glycol [Lubricant Eye Drop] 1 drop OU DAILYP PRN 06/10/19 Apixaban [Eliquis 5 mg Tablet] 5 mg PO Q12 #60 tablet 06/11/19 Carvedilol [Coreg 12.5 mg Tablet] 25 mg PO BID #60 tablet 06/11/19 Allergies/Adverse Reactions: Zsscooc-Iai-Owy Reductase Inhibitor Adverse Reaction (Verified 05/07/17 06:16) Review of Systems ROS unobtainable: Due to endotracheal tube, Due to mental status Physical Exam Vital Signs: Temp Pulse Resp BP Pulse Ox 93 09/27/19 17:15 Intake & Output 09/26/19 09/27/19 09/28/19 06:59 06:59 06:59 Weight 99.79 kg Weight/Height Weight 99.79 kg General appearance: PRESENT: no acute distress, well-developed, well-nourished Head exam: PRESENT: atraumatic, normocephalic Eye exam: PRESENT: conjunctival injection, conjunctiva pink, EOMI. ABSENT: PERRLA - OD pupil > OS pupil Mouth exam: PRESENT: moist, tongue midline Neck exam: ABSENT: carotid bruit, JVD, tracheal deviation Respiratory exam: PRESENT: rales, rhonchi. ABSENT: clear to auscultation mary Cardiovascular exam: PRESENT: RRR. ABSENT: gallop, rubs, systolic murmur GI/Abdominal exam: PRESENT: distended, normal bowel sounds. ABSENT: rebound, rigid, tenderness Extremities exam: PRESENT: pedal edema, +1 edema Neurological exam: PRESENT: other - sedated with propofol Laboratory/Radiographs Laboratory Results: 09/27/19 17:28 09/27/19 17:28 09/27/19 09/27/19 17:28 17:28 WBC 17.2 H RBC 3.93 L Hgb 11.9 L Hct 36.5 L MCV 93 MCH 30.2 MCHC 32.5 RDW 15.5 H Plt Count 381 Seg Neutrophils % Not Reportable Sodium 136.6 L Potassium 5.1 H Chloride 101 Carbon Dioxide 23 Anion Gap 13 BUN 47 H Creatinine 8.78 H Est GFR ( Amer) 7 L Glucose 294 H Calcium 9.4 Total Bilirubin 0.7 AST 20 Alkaline Phosphatase 61 Total Protein 7.4 Albumin 4.2 Triglycerides 134 09/27/19 17:28 Troponin I 0.034 Impressions: Chest X-Ray 09/27/19 00:00 IMPRESSION: Borderline cardiomegaly with pulmonary edema. Endotracheal tube placement. All labs, radiographs, diagnostic studies and EKGs were personally reviewed: Yes In addition, reports of radiographic and diagnostic studies were read: Yes Critical Time Critical Time (minutes): 90 -: The care of a critically ill patient is dynamic. This note represents a static moment in the admission process. Orders and treatments may be given simultaneously and urgently, and time is not loss control representative of the treatment process. This patient requires Critical Care secondary to life threatening organ or limb dysfunction. Without Critical Care services, the patient is at risk for increased mortality and morbidity.
[2019-09-27 21:12] LABS: ARTERIAL BLOOD BASE EXCESS -3.8 mmol/L; ARTERIAL BLOOD FIO2 80%; ARTERIAL BLOOD H2CO3 1.16 mmol/L (1.05-1.35); ARTERIAL BLOOD HCO3 21.3 mmol/L (20-24); ARTERIAL BLOOD O2 SATURATION 98.6 % (94-98); ARTERIAL BLOOD PCO2 38.7 mmHg (35-45); ARTERIAL BLOOD PH 7.36 (7.35-7.45); ARTERIAL BLOOD PO2 135.5 mmHg (80-100); ARTERIAL BLOOD TOTAL CO2 22.5 mmol/L (23-27)
[2019-09-27] MEDS ORDERED: PROPOFOL 1,000 MG/100 ML INFUS..BTL IV ONE (21:53)
[2019-09-27] MEDS ORDERED: FAMOTIDINE INJ/PF 20 MG/2 ML SDV IV SCH (22:00)
[2019-09-27] MEDS: PROPOFOL 1,000 MG/100 ML INFUS..BTL IV PRN (22:26)
[2019-09-27] MEDS: HEPARIN SOD (PORCINE) 5,000 UNIT/ML 1 ML VIAL SUBCUT SCH (22:28)
[2019-09-27] MEDS: FAMOTIDINE INJ/PF 20 MG/2 ML SDV IV SCH (22:29)
[2019-09-27] MEDS ORDERED: PIPERACILLIN/TAZOBACTAM 2.25 GM VIAL IV PRN (22:30)
[2019-09-27] MEDS: PIPERACILLIN SODIUM/TAZOBACTAM 2.25 GM in NORMAL SALINE 50 ML IV SCH (22:41)
[2019-09-27] MEDS ORDERED: CLONIDINE HCL 0.1 MG TABLET NG ONE (23:07)
[2019-09-28] MEDS ORDERED: HYDRALAZINE HCL INJ/PF 20 MG/1 ML SDV IV ONE ×4 (00:13→21:00)
[2019-09-28] MEDS ORDERED: CLONIDINE HCL 0.2 MG TABLET NG ONE (00:13)
[2019-09-28] MEDS ORDERED: HYDRALAZINE HCL INJ/PF 20 MG/1 ML SDV ONE ×3 (00:23→20:29)
[2019-09-28] MEDS: INSULIN REG, HUMAN 100 UNIT/ML 3 ML VIAL (PYX) SUBCUT SCH ×5 (00:24→23:46)
[2019-09-28] MEDS ORDERED: ALBUTEROL SULFATE 0.083% NEB 2.5 MG/3 ML AMPUL NEB PRN (00:30)
[2019-09-28 01:08] LABS: APPEARANCE,URINE CLEAR; BILIRUBIN,URINE NEGATIVE (NEGATIVE); COLOR,URINE STRAW; GLUCOSE, URINE 150 mg/dL (NEGATIVE); KETONES,URINE NEGATIVE (NEGATIVE); PROTEIN,URINE 100 mg/dL (NEGATIVE); URINE SPECIFIC GRAVITY 1.008; UROBILINOGEN,URINE NEGATIVE mg/dL (<2.0)
[2019-09-28] MEDS: PROPOFOL 1,000 MG/100 ML INFUS..BTL IV PRN ×2 (03:37→10:00)
[2019-09-28 04:13] LABS: ABSOLUTE BASOPHILS # (AUTO) 0.1 10^3/uL (0.0-0.2); ABSOLUTE EOSINOPHILS # (AUTO) 0.1 10^3/uL (0.0-0.6); ABSOLUTE LYMPHOCYTES (AUTO) 0.8 10^3/uL (0.5-4.7); ABSOLUTE MONOCYTES (AUTO) 1.2 10^3/uL (0.1-1.4); ABSOLUTE NEUT (AUTO) 13.6 10^3/uL (1.7-8.2); BASOPHILS % (AUTO) 0.4 % (0-2); EOSINOPHILS % (AUTO) 0.4 % (0-6); HEMOGLOBIN 11.1 g/dL (13.5-17.0); LYMPHOCYTES % (AUTO) 5.2 % (13-45); MEAN CORPUSCULAR HGB CONC 32.7 g/dL (32.0-36.0); MEAN CORPUSCULAR VOLUME 92 fl (80-97); MONOCYTES % (AUTO) 7.9 % (3-13); PLATELET COUNT 314 10^3/uL (150-450); RED BLOOD COUNT 3.71 10^6/uL (4.35-5.55); RED CELL DISTRIBUTION WIDTH 15.4 % (11.5-14.0); SEGMENTED NEUTROPHILS % (AUTO) 86.1 % (42-78); TOTAL CELLS COUNTED % (AUTO) 100 %; WHITE BLOOD COUNT 15.8 10^3/uL (4.0-10.5)
[2019-09-28 04:19] LABS: INTERNATIONAL RATION (INR) 1.11; PROTHROMBIN TIME 14.4 SEC (11.4-15.4)
[2019-09-28 04:20] LABS: FIBRINOGEN 433 mg/dL (209-497)
[2019-09-28 04:22] LABS: ARTERIAL BLOOD BASE EXCESS -4.6 mmol/L; ARTERIAL BLOOD H2CO3 1.06 mmol/L (1.05-1.35); ARTERIAL BLOOD O2 SATURATION 96.6 % (94-98); ARTERIAL BLOOD PCO2 35.2 mmHg (35-45); ARTERIAL BLOOD PH 7.37 (7.35-7.45); ARTERIAL BLOOD TOTAL CO2 21.1 mmol/L (23-27)
[2019-09-28 04:22] LABS: D-DIMER 1.61 ug/mL (0.00-0.50)
[2019-09-28 04:24] LABS: ARTERIAL BLOOD FIO2 45%
[2019-09-28 04:36] LABS: ALBUMIN 3.9 g/dL (3.5-5.0); ALKALINE PHOSPHATASE 51 U/L (38-126); ANION GAP 15 (5-19); ASPARTATE AMINO TRANSFERASE 18 U/L (17-59); BILIRUBIN,DIRECT 0.3 mg/dL (0.0-0.4); BILIRUBIN,TOTAL 0.7 mg/dL (0.2-1.3); BLOOD UREA NITROGEN 57 mg/dL (7-20); C-REACTIVE PROTEIN 14.5 mg/L (<10.0); CALCIUM 9.6 mg/dL (8.4-10.2); CARBON DIOXIDE 21 mmol/L (22-30); CHLORIDE 103 mmol/L (98-107); GLUCOSE 129 mg/dL (75-110); POTASSIUM 4.8 mmol/L (3.6-5.0)
[2019-09-28] MEDS ORDERED: METOPROLOL TARTRATE 25 MG TABLET NG ONE (05:45)
[2019-09-28] MEDS: PIPERACILLIN SODIUM/TAZOBACTAM 2.25 GM in NORMAL SALINE 50 ML IV SCH ×3 (05:46→21:29)
[2019-09-28] MEDS: HEPARIN SOD (PORCINE) 5,000 UNIT/ML 1 ML VIAL SUBCUT SCH ×2 (05:47→14:20)
--- NOTE | 2019-09-28 10:51 | RADIOLOGY REPORT (SQ) ---
EXAM DESCRIPTION: CHEST SINGLE VIEW IMAGES COMPLETED DATE/TIME: 09/28/2019 6:55 am REASON FOR STUDY: f/u bilateral infiltrates for improvement vs worse COMPARISON: 09/27/2019 EXAM PARAMETERS: NUMBER OF VIEWS: One view. TECHNIQUE: Single frontal radiographic view of the chest acquired. RADIATION DOSE: NA LIMITATIONS: None. FINDINGS: LUNGS AND PLEURA: Interval improvement in the appearance of the chest with persistent dec reasing bilateral perihilar airspace disease and focal areas of confluent consolidation in the lungs. Mild residual changes in the lower lungs more so on the right. No pneumothorax. MEDIASTINUM AND HILAR STRUCTURES: No masses. Contour normal. HEART AND VASCULAR STRUCTURES: Stable. BONES: No acute findings. HARDWARE: Endotracheal tube again identified. Interval placement of nasogastric tube, the tip is be low the level of the left hemidiaphragm but is not visualized on the obtained image. OTHER: No other significant finding. IMPRESSION: 1. Interval improvement in the appearance of the chest since the prior study dated 09/26 with decrease in the bilateral perihilar airspace disease and focal areas of confluent consolid ation in the lungs. 2. Interval placement of nasogastric tube, tip is below the left hemidiaphragm but is not visualized on the obtained image. TECHNICAL DOCUMENTATION: JOB ID: [id number] 2010 [employer]- All Rights Reserved Reading location - IP/workstation name: [email or web address]
[2019-09-28] MEDS: CLONIDINE HCL 0.2 MG TABLET NG SCH ×2 (11:08→21:26)
[2019-09-28] MEDS: ZINC SULFATE 220 MG CAPSULE NG SCH (11:09)
--- NOTE | 2019-09-28 12:21 | PDOC CONSULTATION ---
Consultation Consult Date: 09/28/19 Provider Consulted: Dheeraj PALMA Consult reason:: esrd for hd. History of Present Illness Admission Date/PCP: 09/27/19 19:09 [facility] History of Present Illness: LEELEE THORNE is a 69 year old male with a past medical history significant for ESRD on hemodialysis in the background of hypertension and who has other comorbidities which includes renal osteodystrophy, anemia of chronic kidney disease, atrial fibrillation was admitted with history of respiratory failure. Apparently he was in the process of having dental work done and had been given medications in the form of lidocaine and mepivacaine when he went into respiratory distress. 911 was called and they apparently intubated him on the field and transported him to the ER. Evaluations in the ER revealed that he was severely hypotensive and chest x-ray showed features suggestive of congestive heart failure. Appropriate medications were instituted and he was transferred to the ICU where he is being currently being seen while undergoing dialysis. He had a chest x-ray done early this morning predialysis and shows some market improvement of his pulmonary edema. His last dialysis was on Thursday. Discussions were done with the treating nurse as well as with internal consultant. Labs and medications were reviewed.Dialysis orders were reviewed with the treating dialysis nurse.His covid testing was negative. Past Medical History Cardiac Medical History: Reports: Hyperlipidemia, Hypertension-primary Pulmonary Medical History: Reports: Bronchitis, Pneumonia Endocrine Medical History: Reports: Diabetes Mellitus Type 2 Renal/ Medical History: Reports: End Stage Renal Disease, Secondary Hyperparathyroidism Musculoskeltal Medical History: Reports: Arthritis - MARY. HANDS Psychiatric Medical History: Reports: Depression Hematology Medical History: Reports Anemia of Chronic Kidney Disease Past Surgical History Past Surgical History: Reports: Orthopedic Surgery - left knee replacement, back x2, knee x2 Social History Lives with: Other - The patient apparently raises his 13-year-old grandson. Next of kin is a sister. Smoking Status: Unknown if Ever Smoked Frequency of Alcohol Use: None Hx Recreational Drug Use: No Drugs: None Hx Prescription Drug Abuse: No - Advance Directive Resuscitation Status: Full Code Family History Parental Family History Reviewed: No Children Family History Reviewed: No Sibling(s) Family History Reviewed.: No Medication/Allergy Home Medications: Clonidine HCl 0.1 mg PO Q12 01/27/17 Furosemide [Lasix 20 mg Tablet] 20 mg PO Q12 01/27/17 Nifedipine [Adalat cc] 60 mg PO BID 01/27/17 Apixaban [Eliquis 5 mg Tablet] 5 mg PO Q12 #60 tablet 06/11/19 Carvedilol [Coreg 12.5 mg Tablet] 25 mg PO Q12 09/28/19 Allergies/Adverse Reactions: Kzdbitv-Soy-Lrf Reductase Inhibitor Adverse Reaction (Verified 05/07/17 06:16) Review of Systems ROS unobtainable: Due to endotracheal tube Physical Exam Vital Signs: Temp Pulse Resp BP Pulse Ox 97.0 F 67 14 187/75 H 96 09/28/19 11:05 09/28/19 00:00 09/28/19 11:05 09/28/19 11:05 09/28/19 11:05 Intake & Output 09/27/19 09/28/19 09/29/19 06:59 06:59 06:59 Intake Total 216 67 Output Total 475 116 Balance -259 -49 Weight 89.7 kg General appearance: PRESENT: disheveled Exam: intubated and sedated Respiratory exam: PRESENT: clear to auscultation mary. ABSENT: crackles Cardiovascular exam: PRESENT: +S1, +S2 GI/Abdominal exam: PRESENT: normal bowel sounds, soft. ABSENT: organomegaly, tenderness Extremities exam: ABSENT: pedal edema Neurological exam: PRESENT: altered Skin exam: ABSENT: erythema, mottled, rash Results Laboratory Results: 09/28/19 04:05 09/28/19 04:05 09/27/19 09/27/19 09/27/19 17:28 17:28 17:28 WBC 17.2 H RBC 3.93 L Hgb 11.9 L Hct 36.5 L MCV 93 MCH 30.2 MCHC 32.5 RDW 15.5 H Plt Count 381 Seg Neutrophils % Not Reportable Carbonic Acid HCO3/H2CO3 Ratio ABG pH ABG pCO2 ABG pO2 ABG HCO3 ABG O2 Saturation ABG Base Excess FiO2 Sodium 136.6 L Potassium 5.1 H Chloride 101 Carbon Dioxide 23 Anion Gap 13 BUN 47 H Creatinine 8.78 H Est GFR ( Amer) 7 L Glucose 294 H Calcium 9.4 Ionized Calcium Bruce Magnesium Ferritin 803.00 H Total Bilirubin 0.7 AST 20 Alkaline Phosphatase 61 C-Reactive Protein 12.1 H Total Protein 7.4 Albumin 4.2 Triglycerides 134 Urine Color Urine Appearance Urine pH Ur Specific [place] Urine Protein Urine Glucose (UA) Urine Ketones Urine Blood Urine RBC (Auto) 09/27/19 09/27/19 09/27/19 17:28 20:43 20:43 WBC RBC Hgb Hct MCV MCH MCHC RDW Plt Count Seg Neutrophils % Carbonic Acid 1.16 HCO3/H2CO3 Ratio 18:1 ABG pH 7.36 ABG pCO2 38.7 ABG pO2 135.5 H ABG HCO3 21.3 ABG O2 Saturation 98.6 H ABG Base Excess -3.8 FiO2 80% Sodium Potassium Chloride Carbon Dioxide Anion Gap BUN Creatinine Est GFR ( Amer) Glucose Calcium Ionized Calcium Bruce 1.11 L Magnesium 2.1 Ferritin Total Bilirubin AST Alkaline Phosphatase C-Reactive Protein Total Protein Albumin Triglycerides Urine Color Urine Appearance Urine pH Ur Specific [place] Urine Protein Urine Glucose (UA) Urine Ketones Urine Blood Urine RBC (Auto) 09/28/19 09/28/19 09/28/19 00:46 04:05 04:05 WBC 15.8 H RBC 3.71 L Hgb 11.1 L Hct 34.0 L MCV 92 MCH 30.0 MCHC 32.7 RDW 15.4 H Plt Count 314 Seg Neutrophils % 86.1 H Carbonic Acid HCO3/H2CO3 Ratio ABG pH ABG pCO2 ABG pO2 ABG HCO3 ABG O2 Saturation ABG Base Excess FiO2 Sodium 139.1 Potassium 4.8 Chloride 103 Carbon Dioxide 21 L Anion Gap 15 BUN 57 H Creatinine 9.39 H Est GFR ( Amer) 7 L Glucose 129 H Calcium 9.6 Ionized Calcium Bruce Magnesium Ferritin 751.00 H Total Bilirubin 0.7 AST 18 Alkaline Phosphatase 51 C-Reactive Protein 14.5 H Total Protein 7.0 Albumin 3.9 Triglycerides Urine Color STRAW Urine Appearance CLEAR Urine pH 8.0 Ur Specific [place] 1.008 Urine Protein 100 H Urine Glucose (UA) 150 H Urine Ketones NEGATIVE Urine Blood SMALL H Urine RBC (Auto) 2 09/28/19 04:12 WBC RBC Hgb Hct MCV MCH MCHC RDW Plt Count Seg Neutrophils % Carbonic Acid 1.06 HCO3/H2CO3 Ratio 18:1 ABG pH 7.37 ABG pCO2 35.2 ABG pO2 88.0 ABG HCO3 20.0 ABG O2 Saturation 96.6 ABG Base Excess -4.6 FiO2 45% Sodium Potassium Chloride Carbon Dioxide Anion Gap BUN Creatinine Est GFR ( Amer) Glucose Calcium Ionized Calcium Bruce Magnesium Ferritin Total Bilirubin AST Alkaline Phosphatase C-Reactive Protein Total Protein Albumin Triglycerides Urine Color Urine Appearance Urine pH Ur Specific [place] Urine Protein Urine Glucose (UA) Urine Ketones Urine Blood Urine RBC (Auto) 09/27/19 09/27/19 09/27/19 17:28 17:28 23:24 Troponin I 0.034 0.123 NT-Pro-B Natriuret Pep 11082 H 09/28/19 04:05 Troponin I 0.140 NT-Pro-B Natriuret Pep Impressions: Head CT 09/27/19 00:00 IMPRESSION: CHRONIC MICROVASCULAR ISCHEMIA. NO ACUTE IMAGING FINDINGS IN THE BRAIN. EVIDENCE OF ACUTE STROKE: NO. Chest X-Ray 09/28/19 06:00 IMPRESSION: 1. Interval improvement in the appearance of the chest since the prior study dated 09/27/2019 with decrease in the bilateral perihilar airspace disease and focal areas of confluent consolidation in the lungs. 2. Interval placement of nasogastric tube, tip is below the left hemidiaphragm but is not visualized on the obtained image. Assessment & Plan - Diagnosis (1) CHF (congestive heart failure) Qualifiers: Heart failure type: unspecified Heart failure chronicity: chronic Qualified Code(s): I50.9 - Heart failure, unspecified Plan: Looks like the patient presented in hypertensive emergency presenting as congestive heart failure. Chest x-ray is quite suggestive of heart failure in the presence of severely accelerated hypertension of 220+ systolic. Looks like positive pressures and possible Lasix and the immediate control of his blood pressure with IV nitroglycerin has helped resolve the issue partially. This is evidenced by his marked improvement in his chest x-ray yesterday and early this morning predialysis. I plan to remove couple of liters of fluid from him on HD and that should help him remarkably and hopefully help him be extubated now that his blood pressures is under better control.Unsure of this patient's cardiac risk stratification and this would need to be looked at sooner than later given the high risk factors he has for heart disease. (2) Acute respiratory failure Plan: In the setting of hypertensive emergency presenting as congestive heart failure. Presently intubated and sedated. See response to ultrafiltration on hemodialysis and possible extubation later today. (3) End stage renal disease Is this a current diagnosis for this admission?: Yes Plan: Patient currently undergoing dialysis. Patient sedated and intubated. Vital signs are stable. Plan to remove at least 2-3 L as tolerated. Dialysis orders reviewed with the treating dialysis nurse. (4) Endotracheally intubated Is this a current diagnosis for this admission?: Yes (5) Hyperkalemia Is this a current diagnosis for this admission?: Yes Plan: Mild. Should respond to dialysis. (6) Leukocytosis Qualifiers: Leukocytosis type: bandemia Qualified Code(s): D72.825 - Bandemia Is this a current diagnosis for this admission?: Yes Plan: Occult infection versus stress related. Monitor. Currently on antibiotics with cultures. (7) Anemia Qualifiers: Anemia type: due to chronic kidney disease Chronic kidney disease stage: on chronic dialysis Qualified Code(s): N18.6 - End stage renal disease; D63.1 - Anemia in chronic kidney disease; Z99.2 - Dependence on renal dialysis Plan: No indication for erythropoietin today.
--- NOTE | 2019-09-28 13:13 | EKG REPORT ---
SEVERITY:- ABNORMAL ECG - SINUS RHYTHM LEFT ATRIAL ABNORMALITY INCOMPLETE RIGHT BUNDLE BRANCH BLOCK PROLONGED QT INTERVAL : Confirmed by: Dakota Stevens 28-Sep-2019 13:12:35
--- NOTE | 2019-09-28 13:13 | EKG REPORT ---
SEVERITY:- ABNORMAL ECG - SINUS RHYTHM PROBABLE LEFT ATRIAL ABNORMALITY LEFT VENTRICULAR HYPERTROPHY PROLONGED QT INTERVAL : Confirmed by: Dakota Stevens 28-Sep-2019 13:12:29
[2019-09-28] MEDS ORDERED: NITROGLYCERIN 15 MG (0.6 MG/1 HR) PATCH.TD24 TD ONE (14:30)
[2019-09-28] MEDS: MORPHINE SULFATE 10 MG/ML INJ IV SCH ×5 (15:06→23:20)
--- NOTE | 2019-09-28 15:30 | PDOC CRITICAL CARE PROG REPORT ---
General Date:: 09/28/19 ICU Day:: 2 Ventilator Day:: 2 Hospital Day:: 2 Resuscitation Status: Full Code Events in the past 12 to 24 Hours:: 09/27: Admitted yesterday after experiencing extremis after prilocaine/mepivacaine injection at the dentist office. Intubated in the field. Remains intubated. Sedated with propofol. COVID-19 test negative. Dramatic interim improvement in chest x-ray under positive pressure ventilatory support. Anticipating hemodialysis today. WBC 17.2>15.8. On Zosyn for empiric treatment of aspiration pneumonia. Review of systems relevant to events:: Respiratory: Endotracheally intubated Vascular: Accelerated hypertension Renal: End-stage renal disease, hemodialysis dependent Reason for ICU Addmission:: acute respiratory failure - Medications: Medications reviewed and adjusted accordingly: Yes Sedation:: Propofol Physical Exam Vital Signs: Temp Pulse Resp BP Pulse Ox 98.1 F 67 13 142/68 H 95 09/28/19 06:00 09/28/19 00:00 09/28/19 06:00 09/28/19 05:49 09/28/19 08:45 Intake & Output 09/27/19 09/28/19 09/29/19 06:59 06:59 06:59 Intake Total 216 56 Output Total 475 Balance -259 56 Weight 89.7 kg Weight/Height Weight 89.7 kg Height 1.78 m General appearance: PRESENT: no acute distress, well-developed, well-nourished Head exam: PRESENT: atraumatic, normocephalic Eye exam: PRESENT: conjunctiva pink, EOMI, PERRLA. ABSENT: scleral icterus Mouth exam: PRESENT: moist, tongue midline Neck exam: ABSENT: carotid bruit, JVD, lymphadenopathy, thyromegaly Respiratory exam: PRESENT: crackles. ABSENT: accessory muscle use, prolonged expiratory phas, rhonchi, wheezes Cardiovascular exam: PRESENT: RRR. ABSENT: diastolic murmur, rubs, systolic murmur Pulses: PRESENT: normal dorsalis pedis pul GI/Abdominal exam: PRESENT: normal bowel sounds, soft. ABSENT: distended, guarding, mass, organolmegaly, rebound, tenderness Extremities exam: PRESENT: full ROM, other - Left AV fistula. ABSENT: calf tenderness, clubbing, pedal edema Musculoskeletal exam: PRESENT: normal inspection. ABSENT: deformity Skin exam: PRESENT: dry, intact, warm. ABSENT: cyanosis, rash Tubes/Lines: PRESENT: Endotracheal Tube Laboratory/Radiographs Laboratory Results: 09/28/19 04:05 09/28/19 04:05 09/27/19 09/27/19 09/27/19 17:28 17:28 17:28 WBC 17.2 H RBC 3.93 L Hgb 11.9 L Hct 36.5 L MCV 93 MCH 30.2 MCHC 32.5 RDW 15.5 H Plt Count 381 Seg Neutrophils % Not Reportable Carbonic Acid HCO3/H2CO3 Ratio ABG pH ABG pCO2 ABG pO2 ABG HCO3 ABG O2 Saturation ABG Base Excess FiO2 Sodium 136.6 L Potassium 5.1 H Chloride 101 Carbon Dioxide 23 Anion Gap 13 BUN 47 H Creatinine 8.78 H Est GFR ( Amer) 7 L Glucose 294 H Calcium 9.4 Ionized Calcium Bruce Magnesium Ferritin 803.00 H Total Bilirubin 0.7 AST 20 Alkaline Phosphatase 61 C-Reactive Protein 12.1 H Total Protein 7.4 Albumin 4.2 Triglycerides 134 Urine Color Urine Appearance Urine pH Ur Specific [place] Urine Protein Urine Glucose (UA) Urine Ketones Urine Blood Urine RBC (Auto) 09/27/19 09/27/19 09/27/19 17:28 20:43 20:43 WBC RBC Hgb Hct MCV MCH MCHC RDW Plt Count Seg Neutrophils % Carbonic Acid 1.16 HCO3/H2CO3 Ratio 18:1 ABG pH 7.36 ABG pCO2 38.7 ABG pO2 135.5 H ABG HCO3 21.3 ABG O2 Saturation 98.6 H ABG Base Excess -3.8 FiO2 80% Sodium Potassium Chloride Carbon Dioxide Anion Gap BUN Creatinine Est GFR ( Amer) Glucose Calcium Ionized Calcium Bruce 1.11 L Magnesium 2.1 Ferritin Total Bilirubin AST Alkaline Phosphatase C-Reactive Protein Total Protein Albumin Triglycerides Urine Color Urine Appearance Urine pH Ur Specific [place] Urine Protein Urine Glucose (UA) Urine Ketones Urine Blood Urine RBC (Auto) 09/28/19 09/28/19 09/28/19 00:46 04:05 04:05 WBC 15.8 H RBC 3.71 L Hgb 11.1 L Hct 34.0 L MCV 92 MCH 30.0 MCHC 32.7 RDW 15.4 H Plt Count 314 Seg Neutrophils % 86.1 H Carbonic Acid HCO3/H2CO3 Ratio ABG pH ABG pCO2 ABG pO2 ABG HCO3 ABG O2 Saturation ABG Base Excess FiO2 Sodium 139.1 Potassium 4.8 Chloride 103 Carbon Dioxide 21 L Anion Gap 15 BUN 57 H Creatinine 9.39 H Est GFR ( Amer) 7 L Glucose 129 H Calcium 9.6 Ionized Calcium Bruce Magnesium Ferritin 751.00 H Total Bilirubin 0.7 AST 18 Alkaline Phosphatase 51 C-Reactive Protein 14.5 H Total Protein 7.0 Albumin 3.9 Triglycerides Urine Color STRAW Urine Appearance CLEAR Urine pH 8.0 Ur Specific [place] 1.008 Urine Protein 100 H Urine Glucose (UA) 150 H Urine Ketones NEGATIVE Urine Blood SMALL H Urine RBC (Auto) 2 09/28/19 04:12 WBC RBC Hgb Hct MCV MCH MCHC RDW Plt Count Seg Neutrophils % Carbonic Acid 1.06 HCO3/H2CO3 Ratio 18:1 ABG pH 7.37 ABG pCO2 35.2 ABG pO2 88.0 ABG HCO3 20.0 ABG O2 Saturation 96.6 ABG Base Excess -4.6 FiO2 45% Sodium Potassium Chloride Carbon Dioxide Anion Gap BUN Creatinine Est GFR ( Amer) Glucose Calcium Ionized Calcium Bruce Magnesium Ferritin Total Bilirubin AST Alkaline Phosphatase C-Reactive Protein Total Protein Albumin Triglycerides Urine Color Urine Appearance Urine pH Ur Specific [place] Urine Protein Urine Glucose (UA) Urine Ketones Urine Blood Urine RBC (Auto) 09/27/19 09/27/19 09/27/19 17:28 17:28 23:24 Troponin I 0.034 0.123 NT-Pro-B Natriuret Pep 50538 H 09/28/19 04:05 Troponin I 0.140 NT-Pro-B Natriuret Pep Impressions: Head CT 09/27/19 00:00 IMPRESSION: CHRONIC MICROVASCULAR ISCHEMIA. NO ACUTE IMAGING FINDINGS IN THE BRAIN. EVIDENCE OF ACUTE STROKE: NO. All labs, radiographs, diagnostic studies and EKGs were personally reviewed: Yes In addition, reports of radiographic and diagnostic studies were read: Yes Assessment and Plan - Diagnosis (1) Accelerated hypertension Is this a current diagnosis for this admission?: Yes Plan: Improving. Currently on clonidine 0.3 mg NG every 12 hours, metoprolol 25 mg NG every 12 hours. (2) Flash pulmonary edema Is this a current diagnosis for this admission?: Yes Plan: Nitroglycerin transdermal in lieu of gtt (to avoid volume). Morphine 1 mg IV q 2 hr. Hold for altered mental status or RR < 12. (3) Aspiration pneumonia Qualifiers: Aspiration pneumonia type: unspecified Laterality: bilateral Lung location: lower lobe of lung Qualified Code(s): J69.0 - Pneumonitis due to inhalation of food and vomit Is this a current diagnosis for this admission?: Yes Plan: Finish 7-day course of Zosyn. (4) Endotracheally intubated Is this a current diagnosis for this admission?: Yes Plan: Treat sedation for RASS 0 to -1. Wean to extubate. (5) Abnormal CXR Is this a current diagnosis for this admission?: Yes Plan: Repeat chest x-ray in a.m. (6) Leukocytosis Qualifiers: Leukocytosis type: bandemia Qualified Code(s): D72.825 - Bandemia Is this a current diagnosis for this admission?: Yes (7) Lymphocytopenia Is this a current diagnosis for this admission?: Yes (8) Hyperkalemia Is this a current diagnosis for this admission?: Yes (9) QT prolongation Is this a current diagnosis for this admission?: Yes (10) End stage renal disease Is this a current diagnosis for this admission?: Yes Plan: Hemodialysis planned for today. Critical Time Critical Time (minutes): 60 Level of Care: ICU -: 1. The care of a critical patient is a dynamic process. This note is a customer relations representative synopsis but static in nature. The timeframe for treatments given in order is not necessarily the actual time these treatments may have been done. 2. This patient requires critical care secondary to ongoing requirements for therapy not offered or safe outside the critical care environment. Transfer to a lower level of care will result in altered life or limb morbidity and mortality. 3. Multidisciplinary rounds completed. 4. ABCDE bundle addressed.
[2019-09-28] MEDS: CARVEDILOL 12.5 MG TABLET NG SCH (16:56)
[2019-09-28] MEDS: AMLODIPINE BESYLATE 10 MG TABLET PO SCH (19:57)
[2019-09-28] MEDS: FAMOTIDINE INJ/PF 20 MG/2 ML SDV IV SCH (21:26)
[2019-09-28] MEDS ORDERED: METOPROLOL TARTRATE 25 MG TABLET NG SCH (22:00)
[2019-09-29] MEDS: MORPHINE SULFATE 10 MG/ML INJ IV SCH (01:13)
[2019-09-29 04:43] LABS: ABSOLUTE BASOPHILS # (AUTO) 0.1 10^3/uL (0.0-0.2); ABSOLUTE EOSINOPHILS # (AUTO) 0.5 10^3/uL (0.0-0.6); ABSOLUTE LYMPHOCYTES (AUTO) 0.9 10^3/uL (0.5-4.7); ABSOLUTE MONOCYTES (AUTO) 1.4 10^3/uL (0.1-1.4); ABSOLUTE NEUT (AUTO) 8.7 10^3/uL (1.7-8.2); BASOPHILS % (AUTO) 1.3 % (0-2); EOSINOPHILS % (AUTO) 4.2 % (0-6); HEMATOCRIT 33.5 % (37.9-51.0); HEMOGLOBIN 11.1 g/dL (13.5-17.0); LYMPHOCYTES % (AUTO) 7.7 % (13-45); MEAN CORPUSCULAR HEMOGLOBIN 30.1 pg (27.0-33.4); MEAN CORPUSCULAR HGB CONC 33.1 g/dL (32.0-36.0); MEAN CORPUSCULAR VOLUME 91 fl (80-97); MONOCYTES % (AUTO) 12.1 % (3-13); PLATELET COUNT 331 10^3/uL (150-450); RED BLOOD COUNT 3.68 10^6/uL (4.35-5.55); RED CELL DISTRIBUTION WIDTH 15.5 % (11.5-14.0); SEGMENTED NEUTROPHILS % (AUTO) 74.7 % (42-78); TOTAL CELLS COUNTED % (AUTO) 100 %; WHITE BLOOD COUNT 11.6 10^3/uL (4.0-10.5)
[2019-09-29 05:06] LABS: ARTERIAL BLOOD BASE EXCESS 1.6 mmol/L; ARTERIAL BLOOD FIO2 2L; ARTERIAL BLOOD H2CO3 1.16 mmol/L (1.05-1.35); ARTERIAL BLOOD HCO3 25.7 mmol/L (20-24); ARTERIAL BLOOD PCO2 38.7 mmHg (35-45); ARTERIAL BLOOD PH 7.44 (7.35-7.45); ARTERIAL BLOOD PO2 57.6 mmHg (80-100); ARTERIAL BLOOD TOTAL CO2 26.9 mmol/L (23-27)
[2019-09-29 05:07] LABS: ANION GAP 12 (5-19); BLOOD UREA NITROGEN 38 mg/dL (7-20); CALCIUM 9.7 mg/dL (8.4-10.2); CARBON DIOXIDE 26 mmol/L (22-30); CHLORIDE 98 mmol/L (98-107); GLUCOSE 120 mg/dL (75-110); PHOSPHORUS 7.6 mg/dL (2.5-4.5); POTASSIUM 4.3 mmol/L (3.6-5.0)
[2019-09-29] MEDS: INSULIN REG, HUMAN 100 UNIT/ML 3 ML VIAL (PYX) SUBCUT SCH ×4 (05:18→23:53)
[2019-09-29] MEDS: CARVEDILOL 12.5 MG TABLET NG SCH (05:27)
[2019-09-29] MEDS: PIPERACILLIN SODIUM/TAZOBACTAM 2.25 GM in NORMAL SALINE 50 ML IV SCH ×2 (05:30→14:10)
--- NOTE | 2019-09-29 08:29 | RADIOLOGY REPORT (SQ) ---
EXAM DESCRIPTION: CHEST SINGLE VIEW IMAGES COMPLETED DATE/TIME: 09/29/2019 6:03 am REASON FOR STUDY: ETT tube COMPARISON: 09/28/2019 and 09/27/2019 EXAM PARAMETERS: NUMBER OF VIEWS: One view. TECHNIQUE: Single frontal radiographic view of the chest acquired. RADIATION DOSE: NA LIMITATIONS: None. FINDINGS: LUNGS AND PLEURA: Low lung volumes with resultant bronchovascular crowding. Small bilater al pleural effusions. No pneumothorax. MEDIASTINUM AND HILAR STRUCTURES: Stable. HEART AND VASCULAR STRUCTURES: Cardiomegaly with vascular congestion. BONES: No acute findings. HARDWARE: None in the chest. OTHER: No other significant finding. IMPRESSION: No endotracheal tube visualized on today's exam. Low lung volumes results in bronchovas cular crowding. The appearance of cardiomegaly with central vascular congestion suggests positive fl uid balance. TECHNICAL DOCUMENTATION: JOB ID: [id number] 2010 [employer]- All Rights Reserved Reading location - IP/workstation name: [email or web address]
[2019-09-29] MEDS: ZINC SULFATE 220 MG CAPSULE NG SCH (09:48)
[2019-09-29] MEDS: CLONIDINE HCL 0.2 MG TABLET NG SCH (09:50)
[2019-09-29] MEDS: AMLODIPINE BESYLATE 10 MG TABLET PO SCH (09:50)
[2019-09-29] MEDS ORDERED: APIXABAN 5 MG TABLET PO SCH (10:00)
--- NOTE | 2019-09-29 10:24 | PDOC CRITICAL CARE PROG REPORT ---
General Date:: 09/29/19 Hospital Day:: 2 Resuscitation Status: Full Code Events in the past 12 to 24 Hours:: Extubated and doing well from a pulmonary standpoint. Review of systems relevant to events:: Pulmonary. Reason for ICU Addmission:: acute respiratory failure, needing intubation. Now resolved - Medications: Medications reviewed and adjusted accordingly: Yes Vasopressors:: None Sedation:: None Physical Exam Vital Signs: Temp Pulse Resp BP Pulse Ox 97.9 F 75 13 157/73 H 96 09/29/19 08:00 09/29/19 08:00 09/29/19 08:00 09/29/19 08:00 09/29/19 08:00 Intake & Output 09/28/19 09/29/19 09/30/19 06:59 06:59 06:59 Intake Total 266 1441 Output Total 475 3369 0 Balance -209 -1928 0 Weight 89.7 kg 89.3 kg Weight/Height Weight 89.3 kg Height 5 ft 10 in General appearance: PRESENT: no acute distress, cooperative, thin Head exam: PRESENT: atraumatic, normocephalic Eye exam: PRESENT: conjunctiva pink, EOMI, PERRLA. ABSENT: scleral icterus Ear exam: PRESENT: normal external ear exam Mouth exam: PRESENT: moist, tongue midline Respiratory exam: PRESENT: clear to auscultation kelsey. ABSENT: rales, rhonchi, wheezes Cardiovascular exam: PRESENT: RRR. ABSENT: diastolic murmur, rubs, systolic murmur GI/Abdominal exam: PRESENT: normal bowel sounds, soft. ABSENT: distended, guarding, mass, organolmegaly, rebound, tenderness Rectal exam: PRESENT: deferred Extremities exam: PRESENT: full ROM. ABSENT: calf tenderness, clubbing, pedal edema Musculoskeletal exam: PRESENT: normal inspection Neurological exam: PRESENT: alert, awake, oriented to person, oriented to place, oriented to time, oriented to situation, CN II-XII grossly intact, other - He is slow to respond at times but answers appropriately. Staes he is confused at times which is not new.. ABSENT: motor sensory deficit Psychiatric exam: PRESENT: appropriate affect, normal mood. ABSENT: homicidal ideation, suicidal ideation Skin exam: PRESENT: dry, intact, warm. ABSENT: cyanosis, rash Laboratory/Radiographs Laboratory Results: 09/29/19 04:34 09/29/19 04:34 09/29/19 09/29/19 09/29/19 04:34 04:34 04:39 WBC 11.6 H RBC 3.68 L Hgb 11.1 L Hct 33.5 L MCV 91 MCH 30.1 MCHC 33.1 RDW 15.5 H Plt Count 331 Seg Neutrophils % 74.7 Carbonic Acid 1.16 HCO3/H2CO3 Ratio 22:1 ABG pH 7.44 ABG pCO2 38.7 ABG pO2 57.6 L ABG HCO3 25.7 H ABG O2 Saturation 91.0 L ABG Base Excess 1.6 FiO2 2L Sodium 136.0 L Potassium 4.3 Chloride 98 Carbon Dioxide 26 Anion Gap 12 BUN 38 H Creatinine 7.63 H Est GFR ( Amer) 9 L Glucose 120 H Calcium 9.7 Phosphorus 7.6 H Magnesium 2.2 09/27/19 09/27/19 09/27/19 17:28 17:28 23:24 Troponin I 0.034 0.123 NT-Pro-B Natriuret Pep 11395 H 09/28/19 04:05 Troponin I 0.140 NT-Pro-B Natriuret Pep Impressions: Head CT 09/27/19 00:00 IMPRESSION: CHRONIC MICROVASCULAR ISCHEMIA. NO ACUTE IMAGING FINDINGS IN THE BRAIN. EVIDENCE OF ACUTE STROKE: NO. Chest X-Ray 09/29/19 05:00 IMPRESSION: No endotracheal tube visualized on today's exam. Low lung volumes results in bronchovascular crowding. The appearance of cardiomegaly with central vascular congestion suggests positive fluid balance. All labs, radiographs, diagnostic studies and EKGs were personally reviewed: Yes In addition, reports of radiographic and diagnostic studies were read: Yes Assessment and Plan - Diagnosis (1) End stage renal disease on dialysis Is this a current diagnosis for this admission?: Yes Plan: He has not missed HD days. However this episode may have had some volume overload. He is not overloaded now. (2) Hypertensive emergency without congestive heart failure Is this a current diagnosis for this admission?: Yes Plan: His SBP crosses 20 at times needing some PRN antihypertansives. Will try to make these PO in an effort to discharge him home sooner. (3) Acute respiratory failure Qualifiers: Respiratory failure complication: hypoxia Qualified Code(s): J96.01 - Acute respiratory failure with hypoxia Is this a current diagnosis for this admission?: Yes Plan: This has resolved and my feeling is it has been multifactorial. Perhaps some volume overload, HTN, COPD. Another element is local anesthetic. He had both prilocaine and mepivicaine, no documented methemaglobinemia but it is temporaaly related to medication administrative time. Plan Summary: He does not need the ICU and will downgrade to the medical floor. Critical Time Critical Time (minutes): 30 Level of Care: MEDICAL Anticipated discharge: Home Within: within 48 hours -: 1. The care of a critical patient is a dynamic process. This note is a footwear sales representative synopsis but static in nature. The timeframe for treatments given in order is not necessarily the actual time these treatments may have been done. 2. This patient requires critical care secondary to ongoing requirements for therapy not offered or safe outside the critical care environment. Transfer to a lower level of care will result in altered life or limb morbidity and mortality. 3. Multidisciplinary rounds completed. 4. ABCDE bundle addressed.
[2019-09-29] MEDS ORDERED: CARVEDILOL 12.5 MG TABLET PO SCH (11:00)
--- NOTE | 2019-09-29 12:49 | PDOC PROGRESS REPORT ---
Subjective Progress Note for:: 09/29/19 Reason For Visit: Patient seen today. He has been extubated. He is up and awake. Does not recall exact sequence of events. Denies any history of chest pain or shortness of breath currently. Denies noncompliance with medications and blood pressures on dialysis quite controlled. Admits to high sodium intake. He recalls being cardiac risk stratified as part of work-up for renal transplant. He states his dental procedure was the last procedure that needed to be done for complete set up of his renal transplant work-up. Labs and medications were reviewed. Physical Exam Vital Signs: Temp Pulse Resp BP Pulse Ox 97.9 F 75 16 163/73 H 91 L 09/29/19 08:00 09/29/19 08:00 09/29/19 10:07 09/29/19 10:07 09/29/19 10:07 Intake & Output 09/28/19 09/29/19 09/30/19 06:59 06:59 06:59 Intake Total 266 1441 100 Output Total 475 3369 0 Balance -209 -1928 100 Weight 89.7 kg 89.3 kg General appearance: PRESENT: no acute distress Respiratory exam: PRESENT: clear to auscultation kelsey, decreased breath sounds. ABSENT: crackles Cardiovascular exam: PRESENT: +S1, +S2 GI/Abdominal exam: PRESENT: normal bowel sounds, soft. ABSENT: organomegaly, tenderness Extremities exam: ABSENT: pedal edema Neurological exam: PRESENT: alert, awake, oriented to person, oriented to place Psychiatric exam: PRESENT: appropriate affect Results Laboratory Results: 09/29/19 04:34 09/29/19 04:34 09/29/19 09/29/19 09/29/19 04:34 04:34 04:39 WBC 11.6 H RBC 3.68 L Hgb 11.1 L Hct 33.5 L MCV 91 MCH 30.1 MCHC 33.1 RDW 15.5 H Plt Count 331 Seg Neutrophils % 74.7 Carbonic Acid 1.16 HCO3/H2CO3 Ratio 22:1 ABG pH 7.44 ABG pCO2 38.7 ABG pO2 57.6 L ABG HCO3 25.7 H ABG O2 Saturation 91.0 L ABG Base Excess 1.6 FiO2 2L Sodium 136.0 L Potassium 4.3 Chloride 98 Carbon Dioxide 26 Anion Gap 12 BUN 38 H Creatinine 7.63 H Est GFR ( Amer) 9 L Glucose 120 H Calcium 9.7 Phosphorus 7.6 H Magnesium 2.2 09/27/19 09/27/19 09/27/19 17:28 17:28 23:24 Troponin I 0.034 0.123 NT-Pro-B Natriuret Pep 68201 H 09/28/19 04:05 Troponin I 0.140 NT-Pro-B Natriuret Pep Impressions: Head CT 09/27/19 00:00 IMPRESSION: CHRONIC MICROVASCULAR ISCHEMIA. NO ACUTE IMAGING FINDINGS IN THE BRAIN. EVIDENCE OF ACUTE STROKE: NO. Chest X-Ray 09/29/19 05:00 IMPRESSION: No endotracheal tube visualized on today's exam. Low lung volumes results in bronchovascular crowding. The appearance of cardiomegaly with central vascular congestion suggests positive fluid balance. Assessment & Plan - Diagnosis (1) CHF (congestive heart failure) Qualifiers: Heart failure type: unspecified Heart failure chronicity: chronic Qualified Code(s): I50.9 - Heart failure, unspecified Plan: Secondary to hypertensive emergency. Status post hemodialysis and fluid removal and patient blood pressure under control. Status post extubation as is respiratory failure is resolved. Plan for dialysis in the morning. (2) Acute respiratory failure Qualifiers: Respiratory failure complication: hypoxia Qualified Code(s): J96.01 - Acute respiratory failure with hypoxia Is this a current diagnosis for this admission?: Yes Plan: Resolved and currently extubated. Doing well. (3) End stage renal disease Is this a current diagnosis for this admission?: Yes Plan: Was dialyzed yesterday uneventfully. Plan for dialysis in the morning. Note patient has been downgraded to medical floor and therefore dialysis will be done on the fourth floor tomorrow. (4) Endotracheally intubated Is this a current diagnosis for this admission?: Yes Plan: Currently extubated. Respiratory failure resolved. (5) Hyperkalemia Is this a current diagnosis for this admission?: Yes Plan: Monitor labs.
[2019-09-29] MEDS ORDERED: (PENDING PHARMACY ID) (Nifedipine [Adalat Cc] 60 MG) PO SCH (18:00)
[2019-09-29] MEDS: CARVEDILOL 12.5 MG TABLET PO SCH (18:18)
[2019-09-29 19:42] VITALS: BP 153/70
[2019-09-29] MEDS ORDERED: NIFEDIPINE 30 MG TAB.ER.24 PO SCH (22:00)
[2019-09-29] MEDS ORDERED: CLONIDINE HCL 0.2 MG TABLET PO SCH (22:00)
[2019-09-30] MEDS: PIPERACILLIN SODIUM/TAZOBACTAM 2.25 GM in NORMAL SALINE 50 ML IV SCH ×2 (00:01→05:34)
[2019-09-30] MEDS: APIXABAN 5 MG TABLET PO SCH ×2 (00:01→11:22)
[2019-09-30] MEDS: FUROSEMIDE 20 MG TABLET PO SCH ×2 (00:01→11:23)
[2019-09-30] MEDS ORDERED: HYDRALAZINE HCL INJ/PF 20 MG/1 ML SDV IV ONE (03:56)
[2019-09-30] MEDS ORDERED: CARVEDILOL 12.5 MG TABLET PO ONE (03:56)
[2019-09-30] MEDS: CARVEDILOL 12.5 MG TABLET PO SCH (05:33)
[2019-09-30] MEDS: INSULIN REG, HUMAN 100 UNIT/ML 3 ML VIAL (PYX) SUBCUT SCH (05:46)
[2019-09-30 06:29] LABS: HEMATOCRIT 34.1 % (37.9-51.0); HEMOGLOBIN 11.7 g/dL (13.5-17.0); MEAN CORPUSCULAR HEMOGLOBIN 30.9 pg (27.0-33.4); MEAN CORPUSCULAR HGB CONC 34.4 g/dL (32.0-36.0); MEAN CORPUSCULAR VOLUME 90 fl (80-97); PLATELET COUNT 380 10^3/uL (150-450); RED CELL DISTRIBUTION WIDTH 15.5 % (11.5-14.0)
[2019-09-30 06:46] LABS: BLOOD UREA NITROGEN 49 mg/dL (7-20); CALCIUM 10.5 mg/dL (8.4-10.2); CARBON DIOXIDE 19 mmol/L (22-30); CHLORIDE 98 mmol/L (98-107); GLUCOSE 186 mg/dL (75-110); POTASSIUM 3.9 mmol/L (3.6-5.0)
[2019-09-30 06:47] LABS: ANION GAP 19 (5-19)
--- NOTE | 2019-09-30 11:03 | PDOC DISCHARGE SUMMARY ---
Impression - Admit/DC Date/PCP Admission Date/Primary Care Provider: 09/27/19 19:09 [facility] Discharge Date: 09/30/19 - Discharge Diagnosis (1) End stage renal disease on dialysis Is this a current diagnosis for this admission?: Yes (2) Hypertensive emergency without congestive heart failure Is this a current diagnosis for this admission?: Yes (3) Acute respiratory failure Is this a current diagnosis for this admission?: Yes - Assessment Summary: This patient is a 69 yo man who was at his dentists office getting some dental work and was give both Mepivicaine and prilocaine. He had a reaction, very possibly, to these medications and was said to be in extremis. EMS called and he was intubated in the office. He recovered quickly and was extubated the next day, downgraded the but due to no beds was kept in the ICU as a medical patient and is ready for discharge today. He is somewhat confused at baseline, is a dialysis patient and received dialysis this AM. - Additional Information Resuscitation Status: Full Code Referrals: [facility] [Primary Care [facility]] - Follow up as needed Home Medications: Clonidine HCl 0.1 mg PO Q12 01/27/17 Furosemide [Lasix 20 mg Tablet] 20 mg PO Q12 01/27/17 Nifedipine [Adalat cc] 60 mg PO BID 01/27/17 Apixaban [Eliquis 5 mg Tablet] 5 mg PO Q12 #60 tablet 06/11/19 Carvedilol [Coreg 12.5 mg Tablet] 25 mg PO Q12 09/28/19 History of Present Illiness History of Present Illness: LEELEE THORNE is a 69 year old male intubated in his dentist's office possibly due to a reaction to local anesthetics but has since recovered well. He has mild COPD. Breathing well. Gets HD M/W/F and received it this AM. Hospital Course Hospital Course: Uneventful since extubation. Anxious to go home. Physical Exam Vital Signs: Temp Pulse Resp BP Pulse Ox 97.8 F 79 15 153/70 H 94 09/29/19 19:41 09/29/19 19:41 09/29/19 19:41 09/29/19 19:41 09/29/19 19:41 Intake & Output 09/29/19 09/30/19 10/01/19 06:59 06:59 06:59 Intake Total 1441 200 Output Total 3369 250 2500 Balance -1928 -50 -2500 Weight 89.3 kg 90.3 kg General appearance: PRESENT: no acute distress, well-developed, well-nourished Head exam: PRESENT: atraumatic, normocephalic Eye exam: PRESENT: conjunctiva pink, EOMI, PERRLA. ABSENT: scleral icterus Ear exam: PRESENT: normal external ear exam Mouth exam: PRESENT: moist, tongue midline Respiratory exam: PRESENT: clear to auscultation kelsey, decreased breath sounds. ABSENT: rales, rhonchi, wheezes Cardiovascular exam: PRESENT: RRR. ABSENT: diastolic murmur, rubs, systolic murmur GI/Abdominal exam: PRESENT: normal bowel sounds, soft. ABSENT: distended, guarding, mass, organolmegaly, rebound, tenderness Extremities exam: PRESENT: full ROM. ABSENT: calf tenderness, clubbing, pedal edema Musculoskeletal exam: PRESENT: ambulatory, full ROM, normal inspection Neurological exam: PRESENT: alert, awake, oriented to person, oriented to place, oriented to time, oriented to situation, CN II-XII grossly intact, other - At times exhibits some confusion.. ABSENT: motor sensory deficit Psychiatric exam: PRESENT: appropriate affect, normal mood. ABSENT: homicidal ideation, suicidal ideation Skin exam: PRESENT: dry, intact, warm. ABSENT: cyanosis, rash Results Laboratory Results: WBC 10.0 10^3/uL (4.0-10.5) 09/30/19 06:12 RBC 3.80 10^6/uL (4.35-5.55) L 09/30/19 06:12 Hgb 11.7 g/dL (13.5-17.0) L 09/30/19 06:12 Hct 34.1 % (37.9-51.0) L 09/30/19 06:12 MCV 90 fl (80-97) 09/30/19 06:12 MCH 30.9 pg (27.0-33.4) 09/30/19 06:12 MCHC 34.4 g/dL (32.0-36.0) 09/30/19 06:12 RDW 15.5 % (11.5-14.0) H 09/30/19 06:12 Plt Count 380 10^3/uL (150-450) 09/30/19 06:12 Lymph % (Auto) 7.7 % (13-45) L 09/29/19 04:34 [place] % (Auto) 12.1 % (3-13) 09/29/19 04:34 Eos % (Auto) 4.2 % (0-6) 09/29/19 04:34 Baso % (Auto) 1.3 % (0-2) 09/29/19 04:34 Absolute Neuts (auto) 8.7 10^3/uL (1.7-8.2) H 09/29/19 04:34 Absolute Lymphs (auto) 0.9 10^3/uL (0.5-4.7) 09/29/19 04:34 Absolute Monos (auto) 1.4 10^3/uL (0.1-1.4) 09/29/19 04:34 Absolute Eos (auto) 0.5 10^3/uL (0.0-0.6) 09/29/19 04:34 Absolute Basos (auto) 0.1 10^3/uL (0.0-0.2) 09/29/19 04:34 Total Counted 100 09/27/19 17:28 Seg Neutrophils % 74.7 % (42-78) 09/29/19 04:34 Seg Neuts % (Manual) 82 % (42-78) H 09/27/19 17:28 Lymphocytes % (Manual) 9 % (13-45) L 09/27/19 17:28 Monocytes % (Manual) 6 % (3-13) 09/27/19 17:28 Eosinophils % (Manual) 3 % (0-6) 09/27/19 17:28 Basophils % (Manual) 0 % (0-2) 09/27/19 17:28 Abs Neuts (Manual) 14.1 10^3/uL (1.7-8.2) H 09/27/19 17:28 Abs Lymphs (Manual) 1.5 10^3/uL (0.5-4.7) 09/27/19 17:28 Abs Monocytes (Manual) 1.0 10^3/uL (0.1-1.4) 09/27/19 17:28 Absolute Eos (Manual) 0.5 10^3/uL (0.0-0.6) 09/27/19 17:28 Abs Basophils (Manual) 0.0 10^3/uL (0.0-0.2) 09/27/19 17:28 Toxic Granulation SLIGHT 09/27/19 17:28 Clumped Platelets PRESENT 09/27/19 17:28 Large Platelets PRESENT 09/27/19 17:28 Giant Platelets PRESENT 09/27/19 17:28 Platelet Comment ADEQUATE 09/27/19 17:28 Anisocytosis SLIGHT 09/27/19 17:28 PT 14.4 SEC (11.4-15.4) 09/28/19 04:05 INR 1.11 09/28/19 04:05 Fibrinogen 433 mg/dL (209-497) 09/28/19 04:05 D-Dimer 1.61 ug/mL (0.00-0.50) H 09/28/19 04:05 Carbonic Acid 1.16 mmol/L (1.05-1.35) 09/29/19 04:39 HCO3/H2CO3 Ratio 22:1 09/29/19 04:39 ABG pH 7.44 (7.35-7.45) 09/29/19 04:39 ABG pCO2 38.7 mmHg (35-45) 09/29/19 04:39 ABG pO2 57.6 mmHg (80-100) L 09/29/19 04:39 ABG HCO3 25.7 mmol/L (20-24) H 09/29/19 04:39 ABG Total CO2 26.9 mmol/L (23-27) 09/29/19 04:39 ABG O2 Saturation 91.0 % (94-98) L 09/29/19 04:39 ABG Base Excess 1.6 mmol/L 09/29/19 04:39 FiO2 2L 09/29/19 04:39 Sodium 136.5 mmol/L (137-145) L 09/30/19 06:12 Potassium 3.9 mmol/L (3.6-5.0) 09/30/19 06:12 Chloride 98 mmol/L (98-107) 09/30/19 06:12 Carbon Dioxide 19 mmol/L (22-30) L 09/30/19 06:12 Anion Gap 19 (5-19) 09/30/19 06:12 BUN 49 mg/dL (7-20) H 09/30/19 06:12 Creatinine 9.92 mg/dL (0.52-1.25) H 09/30/19 06:12 Est GFR ( Amer) 6 (>60) L 09/30/19 06:12 Est GFR (MDRD) Non-Af 5 (>60) L 09/30/19 06:12 Glucose 186 mg/dL (75-110) H 09/30/19 06:12 POC Glucose 171 mg/dL (70-110) H 09/30/19 05:42 Calcium 10.5 mg/dL (8.4-10.2) H 09/30/19 06:12 Ionized Calcium Bruce 1.11 mmol/L (1.14-1.30) L 09/27/19 20:43 Phosphorus 7.6 mg/dL (2.5-4.5) H 09/29/19 04:34 Magnesium 2.2 mg/dL (1.6-2.3) 09/29/19 04:34 Ferritin 751.00 ng/mL (17.9-464.0) H 09/28/19 04:05 Total Bilirubin 0.7 mg/dL (0.2-1.3) 09/28/19 04:05 Direct Bilirubin 0.3 mg/dL (0.0-0.4) 09/28/19 04:05 Neonat Total Bilirubin Not Reportable 09/28/19 04:05 Neonat Direct Bilirubin Not Reportable 09/28/19 04:05 Neonat Indirect Bili Not Reportable 09/28/19 04:05 AST 18 U/L (17-59) 09/28/19 04:05 ALT 15 U/L (<50) 09/28/19 04:05 Alkaline Phosphatase 51 U/L (38-126) 09/28/19 04:05 Lactate Dehydrogenase 186 U/L (120-246) 09/28/19 04:05 Troponin I 0.140 ng/mL 09/28/19 04:05 C-Reactive Protein 14.5 mg/L (<10.0) H 09/28/19 04:05 NT-Pro-B Natriuret Pep 74670 pg/mL (<125) H 09/27/19 17:28 Total Protein 7.0 g/dL (6.3-8.2) 09/28/19 04:05 Albumin 3.9 g/dL (3.5-5.0) 09/28/19 04:05 Triglycerides 134 mg/dL (<150) 09/27/19 17:28 Vitamin D 25-Hydroxy 29.6 ng/mL (14.7-68.3) 09/28/19 04:05 Urine Color STRAW 09/28/19 00:46 Urine Appearance CLEAR 09/28/19 00:46 Urine pH 8.0 (5.0-9.0) 09/28/19 00:46 Ur Specific [place] 1.008 09/28/19 00:46 Urine Protein 100 mg/dL (NEGATIVE) H 09/28/19 00:46 Urine Glucose (UA) 150 mg/dL (NEGATIVE) H 09/28/19 00:46 Urine Ketones NEGATIVE mg/dL (NEGATIVE) 09/28/19 00:46 Urine Blood SMALL (NEGATIVE) H 09/28/19 00:46 Urine Nitrite (Reflex) NEGATIVE (NEGATIVE) 09/28/19 00:46 Urine Bilirubin NEGATIVE (NEGATIVE) 09/28/19 00:46 Urine Urobilinogen NEGATIVE mg/dL (<2.0) 09/28/19 00:46 Leukocyte Esterase Rfl NEGATIVE (NEGATIVE) 09/28/19 00:46 Urine RBC (Auto) 2 /HPF 09/28/19 00:46 U Hyaline Cast (Auto) 1 /LPF 09/28/19 00:46 Urine WBC (Reflex) 3 /HPF 09/28/19 00:46 Squamous Epi Cells Auto <1 /HPF 09/28/19 00:46 Urine Mucus (Auto) RARE /LPF 09/28/19 00:46 Urine Ascorbic Acid NEGATIVE (NEGATIVE) 09/28/19 00:46 SARS-CoV-2 (PCR) NEGATIVE (NEGATIVE) 09/27/19 20:15 09/27/19 09/27/19 09/27/19 17:28 17:28 23:24 Troponin I 0.034 0.123 NT-Pro-B Natriuret Pep 58549 H 09/28/19 04:05 Troponin I 0.140 NT-Pro-B Natriuret Pep Impressions: Chest X-Ray 09/27/19 00:00 IMPRESSION: Borderline cardiomegaly with pulmonary edema. Endotracheal tube placement. Head CT 09/27/19 00:00 IMPRESSION: CHRONIC MICROVASCULAR ISCHEMIA. NO ACUTE IMAGING FINDINGS IN THE BRAIN. EVIDENCE OF ACUTE STROKE: NO. Chest X-Ray 09/28/19 06:00 IMPRESSION: 1. Interval improvement in the appearance of the chest since the prior study dated 09/27/2019 with decrease in the bilateral perihilar airspace disease and focal areas of confluent consolidation in the lungs. 2. Interval placement of nasogastric tube, tip is below the left hemidiaphragm but is not visualized on the obtained image. Chest X-Ray 09/29/19 05:00 IMPRESSION: No endotracheal tube visualized on today's exam. Low lung volumes results in bronchovascular crowding. The appearance of cardiomegaly with central vascular congestion suggests positive fluid balance. Plan Health Concerns: Home Plan of Treatment: Back to regular dialysis schedule Goals: Plan out patient dentists visit at your convenience Critical Time: 30 Level of Care: MEDICAL Stroke Is this a Stroke Patient?: No Acute Heart Failure - Is this a Heart Failure Patient?: No
[2019-09-30] MEDS: ZINC SULFATE 220 MG CAPSULE NG SCH (11:23)
--- NOTE | 2019-09-30 12:19 | PDOC PROGRESS REPORT ---
Subjective Progress Note for:: 09/30/19 Reason For Visit: Patient was seen today undergoing dialysis on the fourth floor. He looks comfortable though he is a bit drowsy but denies any history of headaches, chest pain or shortness of breath. Vital signs are stable. Plan to remove approximately 2-3 L of fluid as tolerated. Labs and medications were reviewed. Dialysis orders were reviewed with the treating dialysis nurse. Physical Exam Vital Signs: Temp Pulse Resp BP Pulse Ox 97.8 F 79 15 153/70 H 94 09/30/19 11:04 09/30/19 11:04 09/30/19 11:04 09/30/19 11:04 09/30/19 11:04 Intake & Output 09/29/19 09/30/19 10/01/19 06:59 06:59 06:59 Intake Total 1441 200 Output Total 3369 250 2500 Balance -1927 -50 -2500 Weight 89.3 kg 90.3 kg General appearance: PRESENT: no acute distress, cooperative, disheveled Respiratory exam: PRESENT: clear to auscultation kelsey, decreased breath sounds. ABSENT: crackles Cardiovascular exam: PRESENT: +S1, +S2 GI/Abdominal exam: PRESENT: normal bowel sounds, soft. ABSENT: organomegaly, tenderness Extremities exam: ABSENT: pedal edema Neurological exam: PRESENT: alert, awake, oriented to person, oriented to place Psychiatric exam: PRESENT: appropriate affect Results Laboratory Results: 09/30/19 06:12 09/30/19 06:12 09/30/19 09/30/19 06:12 06:12 WBC 10.0 RBC 3.80 L Hgb 11.7 L Hct 34.1 L MCV 90 MCH 30.9 MCHC 34.4 RDW 15.5 H Plt Count 380 Sodium 136.5 L Potassium 3.9 Chloride 98 Carbon Dioxide 19 L Anion Gap 19 BUN 49 H Creatinine 9.92 H Est GFR ( Amer) 6 L Glucose 186 H Calcium 10.5 H 09/27/19 22:15 Tracheal Aspirate Gram Stain - Final 09/27/19 22:15 Tracheal Aspirate Sputum Culture - Final NORMAL LAURA 09/27/19 09/27/19 09/27/19 17:28 17:28 23:24 Troponin I 0.034 0.123 NT-Pro-B Natriuret Pep 08766 H 09/28/19 04:05 Troponin I 0.140 NT-Pro-B Natriuret Pep Impressions: Head CT 09/27/19 00:00 IMPRESSION: CHRONIC MICROVASCULAR ISCHEMIA. NO ACUTE IMAGING FINDINGS IN THE BRAIN. EVIDENCE OF ACUTE STROKE: NO. Chest X-Ray 09/29/19 05:00 IMPRESSION: No endotracheal tube visualized on today's exam. Low lung volumes results in bronchovascular crowding. The appearance of cardiomegaly with centra l vascular congestion suggests positive fluid balance. Assessment & Plan - Diagnosis (1) CHF (congestive heart failure) Qualifiers: Heart failure type: unspecified Heart failure chronicity: chronic Qualified Code(s): I50.9 - Heart failure, unspecified Plan: Secondary to hypertensive emergency. Currently resolved. Status post h emodialysis and fluid removal and patient blood pressure under control. (2) Acute respiratory failure Qualifiers: Respiratory failure complication: hypoxia Qualified Code(s): J96.01 - Acute respiratory failure with hypoxia Is this a current diagnosis for this admission?: Yes Plan: Resolved and currently extubated. Doing well. (3) End stage renal disease Is this a current diagnosis for this admission?: Yes Plan: Undergoing dialysis on the fourth floor. No issues identified. Vital signs are stable. Dialysis being supervised. Plan to remove 2-3 L of fluid as tolerated. Dialysis orders were reviewed with the treating dialysis nurse. (4) Hypertensive emergency without congestive heart failure Is this a current diagnosis for this admission?: Yes Plan: Currently blood pressure under control and stable.
== END 2019-09-30 11:45 | disposition home or self-care (01) | DRG 208 ==
LOC: ER 17:15 → EH 19:09 → ICU 21:58
PROVIDERS: ADMIT Internal Medicine Critical Care Medicine; ATTEND Internal Medicine Critical Care Medicine
PROC: 5A1945Z Respiratory Ventilation, 24-96 Consecutive Hours (ICD-10-PCS; principal; 2019-09-27)
PROC: 0BH17EZ Insertion of Endotracheal Airway into Trachea, Via Natural or Artificial Opening (ICD-10-PCS; 2019-09-27)
PROC: 5A1D70Z Performance of Urinary Filtration, Intermittent, Less than 6 Hours Per Day (ICD-10-PCS; 2019-09-28)
DX: J96.01 Acute respiratory failure with hypoxia (principal); N18.6 End stage renal disease; J69.0 Pneumonitis due to inhalation of food and vomit; I16.1 Hypertensive emergency; N25.81 Secondary hyperparathyroidism of renal origin; I12.0 Hypertensive chronic kidney disease with stage 5 chronic kidney disease or end stage renal disease; J96.02 Acute respiratory failure with hypercapnia; J44.9 Chronic obstructive pulmonary disease, unspecified; D63.1 Anemia in chronic kidney disease; N25.0 Renal osteodystrophy; I48.91 Unspecified atrial fibrillation; T88.59XA Other complications of anesthesia, initial encounter; Y84.9 Medical procedure, unspecified as the cause of abnormal reaction of the patient, or of later complication, without mention of misadventure at the time of the procedure; Z20.828 Contact with and (suspected) exposure to other viral communicable diseases; Y92.531 Health care provider office as the place of occurrence of the external cause; E78.5 Hyperlipidemia, unspecified; E11.22 Type 2 diabetes mellitus with diabetic chronic kidney disease; F32.9 Major depressive disorder, single episode, unspecified; Z96.652 Presence of left artificial knee joint; D72.810 Lymphocytopenia; E87.5 Hyperkalemia; R94.31 Abnormal electrocardiogram [ECG] [EKG]; E78.00 Pure hypercholesterolemia, unspecified; Z99.2 Dependence on renal dialysis; Z79.01 Long term (current) use of anticoagulants; Z79.4 Long term (current) use of insulin; Z79.899 Other long term (current) drug therapy; Z78.1 Physical restraint status
CPT/HCPCS: 36415; 70450; 71045; 80048; 80053; 81001; 82306; 82330; 82728; 82803; 82962; 83520; 83615; 83735; 83880; 84100; 84145; 84478; 84484; 85025; 85027; 85379; 85384; 85610; 86140; 87040; 87070; 87205; 87252; 87635; 93005; 93010; 94002; 94003; 94799; 96365; 96366; 96375; 99221; 99238; 99291; 99292; C1887; C9803; J0360; J1644; J1815; J1940; J2270; J2543; J2704; J3490; S0028

== ENCOUNTER 2019-11-14 13:59 | Emergency (ER) | payer OTHER, MEDICARE ==
--- NOTE | 2019-11-14 14:58 | ER Document Report ---
ED Medical Screen (RME) - General Chief Complaint: Weakness Stated Complaint: BLOOD PRESSURE ISSUES Time Seen by Provider: 11/14/19 14:55 Primary Care Provider: GAVIOTA GARCIA [Primary Care Provider] - Follow up as needed Mode of Arrival: Medic Information source: Patient Notes: 69-year-old male presented to ED because because he stated he felt too tired and weak and sick to go to dialysis today. He was scheduled for dialysis today but did not go. He states he did not take any of his medications yesterday or today. He states he felt sick to his stomach but did not vomit or have any diarrhea. He states he did have some shortness of breath. He is usually goes to dialysis today and states he has never missed a day before. I have greeted and performed a rapid initial assessment of this patient. A comprehensive ED assessment and evaluation of the patient, analysis of test results and completion of medical decision making process will be conducted by an additional ED providers. TRAVEL OUTSIDE OF THE [place] IN LAST 30 DAYS: No - Related Data Allergies/Adverse Reactions: [id number] Reductase Inhibitor Adverse Reaction (Verified 05/07/17 06:16) Past Medical History - Past Medical History Cardiac Medical History: Reports: Hx Hypercholesterolemia, Hx Hypertension Pulmonary Medical History: Reports: Hx Bronchitis, Hx Pneumonia Endocrine Medical History: Reports: Hx Diabetes Mellitus Type 2 Renal/ Medical History: Reports: Hx End Stage Renal Disease Musculoskeltal Medical History: Reports Hx Arthritis - MARY. HANDS, Reports Hx Musculoskeletal Deformity, Reports Hx Musculoskeletal Trauma Psychiatric Medical History: Reports: Hx Depression Past Surgical History: Reports: Hx Orthopedic Surgery - left knee replacement, back x2, knee x2 - Immunizations Hx Diphtheria, Pertussis, Tetanus Vaccination: Yes Physical Exam - Vital signs Vitals: Temp Pulse Resp BP Pulse Ox 98.7 F 75 20 192/115 H 94 11/14/19 14:16 11/14/19 14:16 11/14/19 14:16 11/14/19 14:16 11/14/19 14:16 Course - Vital Signs Vital signs: Temp Pulse Resp BP Pulse Ox 98.7 F 75 20 192/115 H 94 11/14/19 14:16 11/14/19 14:16 11/14/19 14:16 11/14/19 14:16 11/14/19 14:16 Doctor's Discharge - Discharge [facility]errals: [facility] [[facility]] - Follow up as needed
--- NOTE | 2019-11-14 15:33 | RADIOLOGY REPORT (SQ) ---
EXAM DESCRIPTION: CHEST 2 VIEWS IMAGES COMPLETED DATE/TIME: 11/14/2019 3:20 pm REASON FOR STUDY: Short of breath chest pain COMPARISON: 09/29/2019 EXAM PARAMETERS: NUMBER OF VIEWS: two views TECHNIQUE: Digital Frontal and Lateral radiographic views of the chest acquired. RADIATION DOSE: NA LIMITATIONS: none FINDINGS: LUNGS AND PLEURA: Mild patchy bibasilar opacities and small bilateral effusions. No pneum othorax. MEDIASTINUM AND HILAR STRUCTURES: No masses or contour abnormalities. HEART AND VASCULAR STRUCTURES: Stable. Vascular calcifications. BONES: No acute findings. HARDWARE: None in the chest. OTHER: No other significant finding. IMPRESSION: Mild patchy bibasilar opacities and small effusions. TECHNICAL DOCUMENTATION: JOB ID: [id number] 2010 [employer]- All Rights Reserved Reading location - IP/workstation name: [email or web address]
[2019-11-14 16:26] LABS: HEMATOCRIT 32.1 % (37.9-51.0); HEMOGLOBIN 10.4 g/dL (13.5-17.0); MEAN CORPUSCULAR HEMOGLOBIN 30.1 pg (27.0-33.4); MEAN CORPUSCULAR HGB CONC 32.4 g/dL (32.0-36.0); MEAN CORPUSCULAR VOLUME 93 fl (80-97); PLATELET COUNT 315 10^3/uL (150-450); RED BLOOD COUNT 3.46 10^6/uL (4.35-5.55); RED CELL DISTRIBUTION WIDTH 15.1 % (11.5-14.0); WHITE BLOOD COUNT 13.8 10^3/uL (4.0-10.5)
[2019-11-14 16:33] LABS: ALBUMIN 4.4 g/dL (3.5-5.0); ALKALINE PHOSPHATASE 60 U/L (38-126); ANION GAP 16 (5-19); ASPARTATE AMINO TRANSFERASE 20 U/L (17-59); BILIRUBIN,DIRECT 0.3 mg/dL (0.0-0.4); BILIRUBIN,TOTAL 1.1 mg/dL (0.2-1.3); BLOOD UREA NITROGEN 54 mg/dL (7-20); CALCIUM 10.3 mg/dL (8.4-10.2); CARBON DIOXIDE 17 mmol/L (22-30); CHLORIDE 106 mmol/L (98-107); GLUCOSE 171 mg/dL (75-110); PHOSPHORUS 6.9 mg/dL (2.5-4.5); POTASSIUM 4.5 mmol/L (3.6-5.0); TOTAL PROTEIN 7.9 g/dL (6.3-8.2)
[2019-11-14 16:53] LABS: ABSOLUTE LYMPHOCYTES# (MANUAL) 0.4 10^3/uL (0.5-4.7); BASOPHILS % (MANUAL) 1 % (0-2); EOSINOPHILS % (MANUAL) 0 % (0-6); LYMPHOCYTES % (MANUAL) 3 % (13-45); MONOCYTES % (MANUAL) 7 % (3-13); SEGMENTED NEUTROPHILS % (MAN) 89 % (42-78); TOTAL CELLS COUNTED 100
[2019-11-14 16:54] LABS: BURR CELLS 1+; PLATELET COMMENT ADEQUATE
[2019-11-14 16:55] LABS: ANISOCYTOSIS SLIGHT
[2019-11-14 16:56] LABS: SCHISTOCYTES SLIGHT
[2019-11-14 16:57] LABS: OVALOCYTES SLIGHT
[2019-11-14] MEDS ORDERED: LABETALOL HCL INJ 20 MG/4 ML DISP.SYRIN IV ONE (17:49)
--- NOTE | 2019-11-14 19:11 | EKG REPORT ---
SEVERITY:- ABNORMAL ECG - ATRIAL FIBRILLATION NONSPECIFIC REPOL ABNORMALITY, LATERAL LEADS BORDERLINE PROLONGED QT INTERVAL : Confirmed by: Dakota Stevens 14-Nov-2019 19:10:45
[2019-11-14 20:08] LABS: ARTERIAL BLOOD BASE EXCESS -8.2 mmol/L; ARTERIAL BLOOD H2CO3 0.81 mmol/L (1.05-1.35); ARTERIAL BLOOD HCO3 15.6 mmol/L (20-24); ARTERIAL BLOOD O2 SATURATION 90.8 % (94-98); ARTERIAL BLOOD PCO2 26.8 mmHg (35-45); ARTERIAL BLOOD PH 7.38 (7.35-7.45); ARTERIAL BLOOD PO2 59.2 mmHg (80-100); ARTERIAL BLOOD TOTAL CO2 16.4 mmol/L (23-27)
[2019-11-14 20:13] LABS: ARTERIAL BLOOD FIO2 ROOM AIR
--- NOTE | 2019-11-14 20:19 | ER Document Report ---
ED General - General Chief Complaint: Weakness Stated Complaint: BLOOD PRESSURE ISSUES Time Seen by Provider: 11/14/19 14:55 Primary Care Provider: JOSE,GAVIOTA [Primary Care Provider] - Follow up as needed Mode of Arrival: Medic Information source: Patient Notes: This 69-year-old man presents to the emergency department with a history of confusion, fatigue and shortness of breath. Apparently he missed dialysis today because he had been feeling poorly for the past 2 days. He denies chest pain, fever, nausea vomiting or GI upset. He was seen at the hospital in September of this year and was intubated at that time because of respiratory failure. TRAVEL OUTSIDE OF THE [place] IN LAST 30 DAYS: No - Related Data Allergies/Adverse Reactions: Gjojuwk-Ftk-Xqj Reductase Inhibitor Adverse Reaction (Verified 05/07/17 06:16) Past Medical History - General Information source: Patient - Social History Smoking Status: Unknown if Ever Smoked Chew tobacco use (# tins/day): No Frequency of alcohol use: None Drug Abuse: None Family History: Reviewed & Not Pertinent Patient has homicidal ideation: No - Past Medical History Cardiac Medical History: Reports: Hx Hypercholesterolemia, Hx Hypertension Pulmonary Medical History: Reports: Hx Bronchitis, Hx Pneumonia Endocrine Medical History: Reports: Hx Diabetes Mellitus Type 2 Renal/ Medical History: Reports: Hx End Stage Renal Disease Musculoskeletal Medical History: Reports Hx Arthritis - MARY. HANDS, Reports Hx Musculoskeletal Deformity, Reports Hx Musculoskeletal Trauma Psychiatric Medical History: Reports: Hx Depression Past Surgical History: Reports: Hx Orthopedic Surgery - left knee replacement, back x2, knee x2 - Immunizations Hx Diphtheria, Pertussis, Tetanus Vaccination: Yes Review of Systems - Review of Systems Notes: Constitutional: + Generalized weakness HENT: Negative for sore throat. Eyes: Negative for visual changes. Cardiovascular: Negative for chest pain. Respiratory: + shortness of breath. Gastrointestinal: Negative for abdominal pain, vomiting or diarrhea. Genitourinary: Negative for dysuria. Musculoskeletal: Negative for back pain. Skin: Negative for rash. Neurological: Negative for headaches, weakness or numbness. 10 point ROS negative except as marked above and in HPI. Physical Exam - Vital signs Vitals: Temp 97.8 F 11/14/19 13:59 - Notes Notes: PHYSICAL EXAMINATION: Physical Exam: General: Ill-appearing 69-year-old man in mild respiratory distress. HEENT: NC/AT, pupils equal round and reactive to light, MM moist,nares clear, oropharynx clear, airway patent, + JVD Neck: supple, no adenopathy, no masses. Good range of motion Lungs: clear, no wheezing, + mild rales laterally CVS: Regular rate and rhythm no murmur gallop or rub Abdomen: Soft, active, nontender, no masses, no hepatosplenomegaly Ext: No edema, clubbing or cyanosis. Neuro: Confused and responsive, moving all 4 extremities on command, cranial nerves intact, no focal findings Course - Re-evaluation Re-evalutation: 11/14/19 20:36 77-year-old man presenting to the emergency department with congestive heart failure, missed dialysis today, short of breath and confused at this time. I have spoken to the building equipment inspector Dr. Park, states that the patient could be dialyzed here at [facility] if there are dialysis beds available. 11/14/19 21:20 There are no dialysis beds available at [facility]. I have contacted [facility] regarding Mr. freda alvarez. The hospitalist Dr. Hassan has accepted the patient in transfer. Because he was tested for coronavirus he will be placed in a person of interest coronavirus mccord. [facility] has called back, no beds are available, unclear whether they would be available for the next 24 hours. Critical care: IV labetalol, BiPAP, Lasix, nitroglycerin drip, will monitor blood pressure and oxygenation while on the BiPAP. 11/15/19 02:41 [facility] Joyner was contacted, Dr. Gracia has accepted the patient transfer. Patient is increasing agitation and combativeness, he is intubated for safety during transport. - Vital Signs Vital signs: Temp Pulse Resp BP Pulse Ox 98.0 F 97 27 H 218/111 H 99 11/14/19 14:59 11/14/19 14:58 11/15/19 01:14 11/14/19 21:11 11/15/19 01:14 - Laboratory Result Diagrams: 11/14/19 15:43 11/14/19 15:43 Laboratory results interpreted by me: 11/14/19 11/14/19 11/14/19 15:43 15:43 15:43 WBC 13.8 H RBC 3.46 L Hgb 10.4 L Hct 32.1 L RDW 15.1 H Seg Neuts % (Manual) 89 H Lymphocytes % (Manual) 3 L Abs Neuts (Manual) 12.3 H Abs Lymphs (Manual) 0.4 L Carbonic Acid ABG pCO2 ABG pO2 ABG HCO3 ABG Total CO2 ABG O2 Saturation Carbon Dioxide 17 L BUN 54 H Creatinine 10.83 H Est GFR ( Amer) 6 L Est GFR (MDRD) Non-Af 5 L Glucose 171 H POC Glucose Calcium 10.3 H Phosphorus 6.9 H NT-Pro-B Natriuret Pep 73455 H 11/14/19 11/14/19 18:19 19:20 WBC RBC Hgb Hct RDW Seg Neuts % (Manual) Lymphocytes % (Manual) Abs Neuts (Manual) Abs Lymphs (Manual) Carbonic Acid 0.81 L ABG pCO2 26.8 L ABG pO2 59.2 L ABG HCO3 15.6 L ABG Total CO2 16.4 L ABG O2 Saturation 90.8 L Carbon Dioxide BUN Creatinine Est GFR ( Amer) Est GFR (MDRD) Non-Af Glucose POC Glucose 159 H Calcium Phosphorus NT-Pro-B Natriuret Pep - Diagnostic Test Radiology reviewed: Image reviewed, Reports reviewed Radiology results interpreted by me: 11/14/19 20:19 Chest x-ray: Cardiomegaly with mild patchy bibasilar opacities and small effusions. 11/14/19 20:20 11/14/19 21:26 CT head: No acute intracranial findings, chronic volume loss similar to previous CT scan. - EKG Interpretation by Me EKG shows normal: Intervals, QRS Complexes - normal, ST-T Waves - No acute ST or T wave abnormalities, no ischemic changes. Rate: Tachycardia - Rate 101 Rhythm: A.Fib, A.Flutter Procedures - Intubation Orotracheal Time of Intubation: 02:25 Airway evaluation: Normal anatomy Mallampati Classification: Class 1 Medications: Etomidate - 20 mg, Versed, Vecuronium Intubation method: Orotracheal Blade type: Silva Blade size: 3 Equipment used: Glidescope ETT size: 8.0 ETT secured at: Teeth ETT secured at (cm): 23 Breath Sounds after Intubation: Equal End tidal CO2 confirmed: Yes Ventilator settings: CMV Tidal volume: 500 FiO2: 50 Respirations: 15 PEEP: 5 Post Intubation Xray: Yes Intubation Complications: No complications, Oral-unsuccessful attempt - 1 attempt Critical Care Note - Critical Care Note Total time excluding time spent on procedures (mins): 60 - Critical care time spent obtaining history from patient or surrogate, discussions with consultants, development of treatment plan with patient or surrogate, evaluation of patient's response to treatment, examination of patient, ordering and performing treatments and interventions, ordering and review of laboratory studies, re- evaluation of patient's condition, ordering and review of radiographic studies and review of old charts Discharge - Discharge Clinical Impression: End stage renal disease, Atrial fibrillation with controlled ventricular rate, Hypertensive urgency, Hypoxia, Metabolic encephalopathy, Endotracheally intubated CHF (congestive heart failure) Qualifiers: Heart failure type: other Qualified Code(s): I50.9 - Heart failure, unspecified Chronic renal failure Qualifiers: Chronic kidney disease stage: stage 5 Qualified Code(s): N18.5 - Chronic kidney disease, stage 5 Hyperglycemia due to type 2 diabetes mellitus Qualifiers: Diabetes mellitus intermediate manager insulin use: unspecified intermediate manager insulin use status Qualified Code(s): E11.65 - Type 2 diabetes mellitus with hyperglycemia Leukocytosis Qualifiers: Leukocytosis type: unspecified Qualified Code(s): D72.829 - Elevated white blood cell count, unspecified Acute respiratory failure Qualifiers: Respiratory failure complication: hypoxia Qualified Code(s): J96.01 - Acute respiratory failure with hypoxia Condition: Fair Disposition: [facility]: [facility] [Primary [facility] Provider] - Follow up as needed
[2019-11-14] MEDS ORDERED: NITROGLYCERIN 2% OINTMENT 1 GM PACKET TP ONE (20:27)
[2019-11-14] MEDS ORDERED: FUROSEMIDE INJ/PF 20 MG/2 ML SDV IV ONE ×2 (20:27→21:23)
[2019-11-14] MEDS ORDERED: NITROGLYCERIN/D5W 50 MG/250 ML RTUINJ IV PRN (20:33)
--- NOTE | 2019-11-14 20:50 | RADIOLOGY REPORT (SQ) ---
EXAM DESCRIPTION: Noncontrast CT head CLINICAL HISTORY: 69 years Male AMS TECHNIQUE: Noncontrast CT head. All CT scans at this facility use dose modulation, iterative reconstruction, and/or weight based dosing when appropriate to reduce radiation dose to as low as reasonably achievable. COMPARISON: September 27, 2019 FINDINGS: There is moderate cerebral volume loss. Patchy periventricular and white matter hypodensities are nonspecific, but in a pattern compatible with chronic microvascular ischemic change. No acute hemorrhage or mass effect. Although examination is not optimized to evaluate intracranial vasculature, given noncontrast technique, there is evidence of atherosclerotic vascular disease involving the bilateral internal carotid arteries and V4 segments. Visualized portions of paranasal sinuses and mastoids are clear. Visualized portions of the calvarium are within normal limits. IMPRESSION: 1. No acute intracranial hemorrhage or mass effect. Findings compatible with volume loss and chronic microvascular ischemic change are present. If there is clinical concern for acute stroke, consider MRI brain as a more sensitive evaluation.
[2019-11-14] MEDS ORDERED: ETOMIDATE INJ/PF 20 MG/10 ML SDV IV ONE (21:00)
[2019-11-14] MEDS ORDERED: VECURONIUM BROMIDE INJ 10 MG VIAL IV ONE (21:00)
[2019-11-14] MEDS ORDERED: PROMETHAZINE HCL INJ 25 MG/1 ML VIAL IM ONE (23:14)
[2019-11-15] MEDS ORDERED: HYDRALAZINE HCL INJ/PF 20 MG/1 ML SDV IV ONE (00:51)
[2019-11-15] MEDS ORDERED: PIPERACILLIN/TAZOBACTAM 3.375 GM VIAL IV ONE (00:53)
[2019-11-15] MEDS ORDERED: LORAZEPAM INJ 2 MG/1 ML VIAL IV ONE (01:12)
[2019-11-15] MEDS ORDERED: HALOPERIDOL LACTATE INJ 5 MG/1 ML VIAL IV ONE (01:13)
[2019-11-15] MEDS ORDERED: MIDAZOLAM HCL INJ 5 MG/1 ML VIAL ONE (01:59)
[2019-11-15 02:32] VITALS: BP 265/146
[2019-11-15] MEDS ORDERED: DILTIAZEM HCL INJ 25 MG/5 ML VIAL IV ONE (03:00)
[2019-11-15] MEDS ORDERED: METOPROLOL TARTRATE PF/INJ 5 MG/5 ML SDV IV ONE (03:01)
--- NOTE | 2019-11-15 03:21 | RADIOLOGY REPORT (SQ) ---
CLINICAL INDICATION: ETT PLACEMENT. TECHNIQUE: A single portable AP view was obtained of the chest at 0236 hours. COMPARISON: September 29, 2019. FINDINGS: The cardiomediastinal silhouette is enlarged but stable. The lungs demonstrate improved aeration with assisted ventilation. Patchy interstitial alveolar space disease bilaterally. No evidence of effusion or pneumothorax. Endotracheal tube tip approximately 3.5 cm above the wes, adequate. IMPRESSION: Satisfactory placement of endotracheal tube..
== END 2019-11-15 03:48 | disposition short-term general hospital (02) ==
LOC: ER 13:59
DX: I16.0 Hypertensive urgency (principal); I13.2 Hypertensive heart and chronic kidney disease with heart failure and with stage 5 chronic kidney disease, or end stage renal disease; N18.5 Chronic kidney disease, stage 5; I50.9 Heart failure, unspecified; E11.22 Type 2 diabetes mellitus with diabetic chronic kidney disease; Z99.2 Dependence on renal dialysis; Z91.15 Patient's noncompliance with renal dialysis; E11.65 Type 2 diabetes mellitus with hyperglycemia; J96.01 Acute respiratory failure with hypoxia; D72.829 Elevated white blood cell count, unspecified; G93.41 Metabolic encephalopathy; I48.91 Unspecified atrial fibrillation; Z20.828 Contact with and (suspected) exposure to other viral communicable diseases
CPT/HCPCS: 31500; 93005; 96376; 99291; 96372; 96375; 96365; 96366; 36415; 82962; 82803; 83690; 83735; 84100; 85025; 87635; 80053; 84484; 83880; 71046; 71045; 70450; 94660; 93010; J1940; J0360; J3490 ×5; J2250; J2550; C9803; 99285

== ENCOUNTER 2020-03-06 21:26 | Emergency (ER) | payer OTHER, MEDICARE ==
--- NOTE | 2020-03-06 22:23 | ER Document Report ---
ED Medical Screen (RME) - General Chief Complaint: High Blood Pressure Stated Complaint: BLOOD PRESSURE PROBLEM Time Seen by Provider: 03/06/20 22:07 Primary Care Provider: ANA CHERRY MD [Primary Care Provider] - Follow up as needed TRAVEL OUTSIDE OF THE [place] IN LAST 30 DAYS: No - HPI Notes: 03/06/20 22:21 69-year-old male with past medical history for hypertension, end-stage renal disease on hemodialysis to the emergency department with complaints of elevated blood pressure today. He states he ran out of his nifedipine yesterday. He states he has been taking metoprolol to try to help control him. However, his blood pressures just continuously gotten higher. He usually sits for his dialysis every Thursday, Thursday, Thursday. He never misses. He did go yesterday . Dr. Canales is his water trainer. He states his nifedipine dose is 60 mg. He states he tried to go to a lot of other clinics today to try to get this refilled for him but he was not successful in doing that. He does admit to some shortness of breath that gets worse with exertion. He states this has been going on before today when his blood pressure was elevated but he does notice that it is a little bit worse today when he was walking to the mailbox. Denies any chest pain. Denies any headaches. Denies any dizziness, syncope, focal neurological deficit. I performed a brief medical screening exam on the patient determined that the patient needs further evaluation and management by main side provider. I have placed initial orders to help expedite care. - Related Data Allergies/Adverse Reactions: Jikrxfu-Yza-Rqx Reductase Inhibitor Adverse Reaction (Verified 03/06/20 22:08) Past Medical History - Social History Frequency of alcohol use: None Drug Abuse: None - Past Medical History Cardiac Medical History: Reports: Hx Hypercholesterolemia, Hx Hypertension Pulmonary Medical History: Reports: Hx Bronchitis, Hx Pneumonia Endocrine Medical History: Reports: Hx Diabetes Mellitus Type 2 Renal/ Medical History: Reports: Hx End Stage Renal Disease Musculoskeltal Medical History: Reports Hx Arthritis - MARY. HANDS, Reports Hx Musculoskeletal Deformity, Reports Hx Musculoskeletal Trauma Psychiatric Medical History: Reports: Hx Depression Past Surgical History: Reports: Hx Orthopedic Surgery - left knee replacement, back x2, knee x2 - Immunizations Hx Diphtheria, Pertussis, Tetanus Vaccination: Yes Physical Exam - Vital signs Vitals: Temp Pulse Resp BP Pulse Ox 97.5 F 88 20 256/113 H 88 L 03/06/20 21:35 03/06/20 21:35 03/06/20 21:35 03/06/20 21:35 03/06/20 21:35 Course - Vital Signs Vital signs: Temp Pulse Resp BP Pulse Ox 97.5 F 88 20 256/113 H 88 L 03/06/20 21:35 03/06/20 21:35 03/06/20 21:35 03/06/20 21:35 03/06/20 21:35 Doctor's Discharge - Discharge Referrals: ANA CHERRY MD [Primary Care Provider] - Follow up as needed
--- NOTE | 2020-03-06 22:58 | ER Document Report ---
ED General - General Chief Complaint: High Blood Pressure Stated Complaint: BLOOD PRESSURE PROBLEM Time Seen by Provider: 03/06/20 22:07 Primary Care Provider: ANA CHERRY MD [NO LOCAL MD] - Follow up as needed TRAVEL OUTSIDE OF THE [place] IN LAST 30 DAYS: No - HPI Notes: 69-year-old male presents with high blood pressure, states that "I need a couple of pills and I'll be okay". Patient states that he is currently out of nifedipine which he states has had the best control over his blood pressure. He is also on multiple other medications, he has his pill bottles at bedside. Patient also states that he was recently discharged from [place], he was there after he was in the ICU intubated after an anesthetic injection at the dentist office, he states that they changed up some of his medications. He states in place of the nifedipine he was started on metoprolol 12.5 mg which she reports is not working for him. He is a dialysis patient, he had a full session yesterd josé miguel and plans to go tomorrow. He denies chest pain, shortness of breath or really any other symptoms. He has not taken his night medications today. - Related Data Allergies/Adverse Reactions: Ommlwdm-Pgv-Xne Reductase Inhibitor Adverse Reaction (Verified 03/06/20 22:08) Past Medical History - General Information source: Patient - Social History Smoking Status: Former Smoker Frequency of alcohol use: None Drug Abuse: None Family History: Reviewed & Not Pertinent Patient has homicidal ideation: No - Past Medical History Cardiac Medical History: Reports: Hx Hypercholesterolemia, Hx Hypertension Pulmonary Medical History: Reports: Hx Bronchitis, Hx Pneumonia Endocrine Medical History: Reports: Hx Diabetes Mellitus Type 2 Renal/ Medical History: Reports: Hx End Stage Renal Disease Musculoskeletal Medical History: Reports Hx Arthritis - MARY. HANDS, Reports Hx Musculoskeletal Deformity, Reports Hx Musculoskeletal Trauma Psychiatric Medical History: Reports: Hx Depression Past Surgical History: Reports: Hx Orthopedic Surgery - left knee replacement, back x2, knee x2 - Immunizations Hx Diphtheria, Pertussis, Tetanus Vaccination: Yes Review of Systems - Review of Systems Constitutional: No symptoms reported EENT: No symptoms reported Cardiovascular: denies: Chest pain Respiratory: denies: Short of breath Gastrointestinal: denies: Abdominal pain Genitourinary: No symptoms reported Male Genitourinary: No symptoms reported Musculoskeletal: No symptoms reported Skin: No symptoms reported Hematologic/Lymphatic: No symptoms reported Neurological/Psychological: denies: Headaches Physical Exam - Vital signs Vitals: Temp Pulse Resp BP Pulse Ox 97.5 F 88 20 256/113 H 88 L 03/06/20 21:35 03/06/20 21:35 03/06/20 21:35 03/06/20 21:35 03/06/20 21:35 - General General appearance: Appears well, Alert In distress: None - HEENT Head: Normocephalic, Atraumatic Extraocular movements intact: Yes Pupils: PERRL - Respiratory Breath sounds: No: Rales - Cardiovascular Rhythm: Regular Heart sounds: Normal auscultation - Abdominal Tenderness: Nontender - Extremities General upper extremity: Normal ROM General lower extremity: Normal ROM - Neurological Neuro grossly intact: Yes Cognition: Normal Orientation: AAOx4 Speech: Normal Cranial nerves: Normal Motor strength normal: LUE, RUE, LLE, RLE Sensory: Normal - Psychological Associated symptoms: Normal affect - Skin Skin Temperature: Warm Course - Re-evaluation Re-evalutation: 69-year-old male history ESRD with other multiple medical problems here with high blood pressure associated with being out of nifedipine, he otherwise reports compliance with his other medications. Relatively asymptomatic given his blood pressure initially of 256/113. He is neurologically intact, lungs are clear, he does have some peripheral edema which he reports is his baseline. He does not exhibit any signs of respiratory distress. Went to dialysis yesterday and will go tomorrow. Will start with oral medications to lower his blood pressure. Will check basic labs to assure that potassium is within normal limits. 03/07/20 01:19 Blood pressure has responded favorably after giving oral medications 03/07/20 01:22 Patient continues to be well-appearing and without complaints. He states he will follow-up with his doctor on and plans to go to dialysis tomorrow. Will refill nifedipine. Return precautions given, stable at time of discharge. - Vital Signs Vital signs: Temp Pulse Resp BP Pulse Ox 97.5 F 88 18 180/78 H 99 03/06/20 21:35 03/06/20 21:35 03/07/20 01:05 03/07/20 01:05 03/07/20 01:05 - Laboratory Result Diagrams: 03/06/20 23:05 03/06/20 23:05 Laboratory results interpreted by me: 03/06/20 03/06/20 23:05 23:05 RBC 3.48 L Hgb 10.5 L Hct 32.5 L RDW 15.6 H Lymph % (Auto) 7.8 L Seg Neutrophils % 82.9 H BUN 43 H Creatinine 7.32 H Est GFR ( Amer) 9 L Est GFR (MDRD) Non-Af 7 L Glucose 234 H - Diagnostic Test Radiology reviewed: Image reviewed, Reports reviewed - EKG Interpretation by Me Additional EKG results interpreted by me: EKG is interpreted by me. Sinus rhythm, rate 78. RBBB. Borderline prolonged QT. No ST segment elevation or depression. Discharge - Discharge Clinical Impression: Hypertension Qualifiers: Hypertension type: renovascular hypertension Qualified Code(s): I15.0 - Renovascular hypertension Disposition: HOME, SELF-CARE Additional Instructions: Continue all medications as prescribed. Follow-up with your doctor as planned on . Return to the emergency department for any concerning worsening symptoms. Prescriptions: Nifedipine [Nifedipine ER] 60 mg PO BID #60 tablet.er Referrals: ANA CHERRY MD [NO LOCAL MD] - Follow up as needed
--- NOTE | 2020-03-06 23:04 | RADIOLOGY REPORT (SQ) ---
CHEST X-RAY 2 view on 03/06/2020 at 10:32 PM CLINICAL INDICATION: Hypoxia, hypertension COMPARISON: 11/15/2019 FINDINGS: Heart is borderline in size. Mild bilateral interstitial opacities may be chronic in nature but could represent mild edema or atypical pneumonia and differential diagnosis would include viral infections. Vascular calcification is noted in the aorta. Hilar and mediastinal contours are within normal limits. IMPRESSION: Mild bilateral interstitial opacities may all be chronic in nature but cannot exclude mild edema or atypical pneumonia.
[2020-03-06] MEDS ORDERED: CARVEDILOL 12.5 MG TABLET PO ONE (23:09)
[2020-03-06] MEDS ORDERED: CLONIDINE HCL 0.2 MG TABLET PO ONE (23:09)
[2020-03-06] MEDS ORDERED: NIFEDIPINE 10 MG CAPSULE PO ONE (23:09)
[2020-03-06] MEDS ORDERED: FUROSEMIDE 40 MG TABLET PO ONE (23:09)
[2020-03-06 23:14] LABS: ABSOLUTE BASOPHILS # (AUTO) 0.1 10^3/uL (0.0-0.2); ABSOLUTE EOSINOPHILS # (AUTO) 0.2 10^3/uL (0.0-0.6); ABSOLUTE LYMPHOCYTES (AUTO) 0.7 10^3/uL (0.5-4.7); ABSOLUTE MONOCYTES (AUTO) 0.6 10^3/uL (0.1-1.4); ABSOLUTE NEUT (AUTO) 7.9 10^3/uL (1.7-8.2); BASOPHILS % (AUTO) 0.8 % (0-2); EOSINOPHILS % (AUTO) 2.4 % (0-6); HEMATOCRIT 32.5 % (37.9-51.0); HEMOGLOBIN 10.5 g/dL (13.5-17.0); LYMPHOCYTES % (AUTO) 7.8 % (13-45); MEAN CORPUSCULAR HEMOGLOBIN 30.2 pg (27.0-33.4); MEAN CORPUSCULAR HGB CONC 32.3 g/dL (32.0-36.0); MEAN CORPUSCULAR VOLUME 93 fl (80-97); MONOCYTES % (AUTO) 6.1 % (3-13); PLATELET COUNT 323 10^3/uL (150-450); RED BLOOD COUNT 3.48 10^6/uL (4.35-5.55); RED CELL DISTRIBUTION WIDTH 15.6 % (11.5-14.0); SEGMENTED NEUTROPHILS % (AUTO) 82.9 % (42-78); TOTAL CELLS COUNTED % (AUTO) 100 %; WHITE BLOOD COUNT 9.5 10^3/uL (4.0-10.5)
[2020-03-06 23:34] LABS: ANION GAP 10 (5-19); BLOOD UREA NITROGEN 43 mg/dL (7-20); CALCIUM 9.4 mg/dL (8.4-10.2); CARBON DIOXIDE 23 mmol/L (22-30); CHLORIDE 105 mmol/L (98-107); GLUCOSE 234 mg/dL (75-110); POTASSIUM 4.2 mmol/L (3.6-5.0)
[2020-03-07] MEDS ORDERED: NIFEDIPINE 10 MG CAPSULE ONE (00:58)
[2020-03-07 01:46] VITALS: BP 176/68
--- NOTE | 2020-03-07 09:08 | EKG REPORT ---
SEVERITY:- ABNORMAL ECG - SINUS RHYTHM LEFT ATRIAL ABNORMALITY INCOMPLETE RIGHT BUNDLE BRANCH BLOCK BORDERLINE PROLONGED QT INTERVAL : Confirmed by: Alvin Swanson MD 07-Mar-2020 09:07:01
== END 2020-03-07 01:46 | disposition home or self-care (01) ==
LOC: ER 21:26
DX: I12.0 Hypertensive chronic kidney disease with stage 5 chronic kidney disease or end stage renal disease (principal); E11.22 Type 2 diabetes mellitus with diabetic chronic kidney disease; N18.6 End stage renal disease; Z99.2 Dependence on renal dialysis; Z79.899 Other long term (current) drug therapy; Z87.891 Personal history of nicotine dependence
CPT/HCPCS: 93005; 99285; 36415; 85025; 80048; 71046; 93010; J3490